=== PATIENT | female | born 1945 | race Hispanic/Latino ===

== ENCOUNTER → 2017-01-25 | Outpatient (CLI) | payer OTHER ==
--- NOTE | 2017-01-25 21:06 | REP ---
RIGHT SHOULDER, THREE VIEWS: There is no evidence of an acute fracture, dislocation or intrinsic bone disease. IMPRESSION: No fracture or dislocation. Signed by Rajendra Mclean MD 01/26/2017 07:57 P
--- NOTE | 2017-01-25 21:07 | REP ---
RIGHT HUMERUS, TWO VIEWS: There is no evidence of an acute fracture, dislocation or intrinsic bone disease. IMPRESSION: No fracture or dislocation. Signed by Rajendra Mclean MD 01/26/2017 07:57 P
== END ==
LOC: M WUC 19:36
PROVIDERS: ATTEND Physician Assistant
DX: S43.401A Unspecified sprain of right shoulder joint, initial encounter (principal); X58.XXXA Exposure to other specified factors, initial encounter; Y92.89 Other specified places as the place of occurrence of the external cause; Y93.89 Activity, other specified; Y99.8 Other external cause status

== ENCOUNTER → 2017-03-11 | Outpatient (CLI) | payer OTHER ==
[2017-03-11 14:08] LABS: ALBUMIN 3.7 GM/DL (3.2-5.2); ALBUMIN/GLOBULIN RATIO 1.19 (1.00-1.93); BILIRUBIN,TOTAL 0.7 MG/DL (0.2-1.0); CALCIUM LEVEL 8.5 MG/DL (8.8-10.2); CREATININE FOR GFR 1.17 MG/DL (0.55-1.02); FREE T4 1.55 NG/DL (0.76-1.46); GLOMERULAR FILTRATION RATE 48.3 (>39); MAGNESIUM LEVEL 1.9 MG/DL (1.8-2.4); POTASSIUM SERUM 4.2 MEQ/L (3.5-5.1); TOTAL PROTEIN 6.8 GM/DL (6.4-8.2)
== END ==
LOC: M WUC 09:05
PROVIDERS: ATTEND Nurse Practitioner Family
DX: E11.29 Type 2 diabetes mellitus with other diabetic kidney complication (principal); E03.9 Hypothyroidism, unspecified; E78.2 Mixed hyperlipidemia; I10 Essential (primary) hypertension

== ENCOUNTER → 2017-06-24 | Outpatient (CLI) | payer OTHER ==
--- NOTE | 2017-06-24 09:40 | REPMRS ---
Patient History The patient states she had a clinical breast exam in 05/2017. Patient is postmenopausal, has history of cancer in the left breast at age 59, had previous chemotherapy at age 59, and has history of ovarian cancer at age 47. No known family history of cancer. Benign excisional biopsy of the right breast, 2005. Malignant mastectomy of the left breast, 2004. Chemotherapy, 2004. Radiation therapy, 2004. Digital Woman Screen Mammo: June 24, 2017 - Exam #: [id number] Bilateral CC and MLO view(s) were taken. Technologist: Esther Garcia, Technologist Prior study comparison: January 13, 2016, digital woman screen mammo performed at [facility]. July 02, 2014, digital woman screen mammo performed at [facility] to [facility]. FINDINGS: There are scattered fibroglandular densities. There has been no change in the appearance of the mammogram from the prior studies. There is a mild amount of residual fibroglandular tissue which is fairly symmetric. There is no interval development of dominant mass, architectural distortion, or clustered microcalcification suggestive of malignancy. Scattered lymph nodes are seen in the axilla. There are benign arterial calcifications noted. There are scattered, small, benign calcifications of doubtful clinical significance. ASSESSMENT: BI-RADS/ACR category 2 mammogram. Benign finding(s). Recommendation Routine screening mammogram in 1 year (for women over age 40). This mammogram was interpreted with the aid of an FDA-approved computer-aided dectection system. A. Negative x-ray reports should not delay biopsy if a dominant or clinically suspicious mass is present. B. Four to eight percent of cancers are not identified by mammography. C. Adenosis and dense breast may obscure an underlying neoplasm. Electronically Signed By: Jm Grey MD 06/24/17 0945
== END ==
LOC: M WHC 08:07
PROVIDERS: ATTEND Nurse Practitioner Family
DX: R92.0 Mammographic microcalcification found on diagnostic imaging of breast (principal); Z85.3 Personal history of malignant neoplasm of breast; Z85.43 Personal history of malignant neoplasm of ovary

== ENCOUNTER → 2017-08-30 | Outpatient (CLI) | payer OTHER ==
[2017-08-30 13:26] LABS: ALBUMIN 3.9 GM/DL (3.2-5.2); ALBUMIN/GLOBULIN RATIO 1.22 (1.00-1.93); CALCIUM LEVEL 8.9 MG/DL (8.8-10.2); CREATININE FOR GFR 1.02 MG/DL (0.55-1.02); FREE T4 1.26 NG/DL (0.76-1.46); GLOMERULAR FILTRATION RATE 56.4 (>39); POTASSIUM SERUM 4.8 MEQ/L (3.5-5.1); TOTAL PROTEIN 7.1 GM/DL (6.4-8.2)
== END ==
LOC: M WUC 10:00
PROVIDERS: ATTEND Nurse Practitioner Family
DX: E11.29 Type 2 diabetes mellitus with other diabetic kidney complication (principal); E78.2 Mixed hyperlipidemia; E03.9 Hypothyroidism, unspecified

== ENCOUNTER → 2017-10-16 | Outpatient (CLI) | payer OTHER ==
[~2017-10-16] MED LIST: ASPI1TAB20 PO; DORZ2OPD; DORZ2OPD OU; DRIS50002 PO; ELIQ5TAB PO; GLIP2.5T6; GLIP2.5T6 PO; LATA5OPD; LATA5OPD OU; LEVO75TA4; LISI10TA4; LISI10TA4 PO; LORA10TA2; LORATAB PO; MAGN500T PO; MAGN50TA; METF500T13; METF500T13 PO; POTA10CA PO; UNIT1TAB PO; VITA1CAP40
--- NOTE | 2017-10-16 14:49 | REP ---
CAROTID ULTRASOUND: Real-time ultrasound evaluation and duplex Doppler interrogation of the extracranial carotid vasculature is performed. There is mild plaquing and narrowing in both carotid bulbs extending into the internal and external carotid arteries. Luminal narrowing is less than 50%. There is no evidence of hemodynamically significant stenosis of either internal carotid artery. Normal flow velocities are seen. The vertebral arteries demonstrate normal direction of flow. RIGHT LEFT Peak systolic velocity ICA 39.1 cm/s 57.8 cm/s End diastolic velocity ICA 6.3 cm/s 12.1 cm/s Peak systolic velocity CCA 64.5 cm/s 70 3 cm/s Peak systolic velocity ECA 90.5 cm/s 75.4 cm/s ICA/CCA ratio 0.61 0.82 IMPRESSION: Bilateral luminal narrowing of the internal carotid arteries less than 50%. No evidence of hemodynamically significant stenosis. Signed by Rajendra Mclean MD 10/16/2017 02:40 P
--- NOTE | 2017-10-16 16:14 | REP ---
MRI brain without contrast: History: Memory loss. Comparison CT study is from October 16, 2012. MRI findings: No bony calvarial lesion is seen. Craniocervical junction and upper cervical cord are normal in appearance. No intraorbital abnormality is seen. Visualized paranasal sinuses are clear. There are scattered foci of acute and subacute ischemia noted bilaterally in the supratentorial brain. There is a small focus of periventricular subcortical restricted diffusion in the right occipital lobe. There are foci of restricted diffusion in the right posterior frontal lobe. There is a focal periventricular white matter area of restricted diffusion in the left parietal lobe. There is evidence of subacute ischemic change in the head of the caudate nucleus on the left. The head of the caudate nucleus lesion shows T1 hyperintensity consistent with petechial hemorrhage component. There is some T1 hypointensity in the right posterior frontal lobe area. No mass, extra-axial fluid collection or midline shift. Impression: Multifocal acute and subacute ischemic areas noted bilaterally in the supratentorial brain in multiple different cerebral vascular distributions. Question embolic issue. There is a petechial hemorrhagic component to the lesion in the head of the caudate nucleus on the left. Findings were telephoned to the referring provider at the time of this dictation. Signed by Serafin Sam MD 10/16/2017 04:31 P
== END ==
LOC: M RAD 13:53
PROVIDERS: ATTEND Nurse Practitioner Family
DX: R09.89 Other specified symptoms and signs involving the circulatory and respiratory systems (principal); R41.841 Cognitive communication deficit

== ENCOUNTER 2017-10-17 10:08 | Inpatient (IN) | payer OTHER ==
[~2017-10-17] VITALS: Ht 152.4 cm; Wt 63.4 kg
[2017-10-17] MEDS ORDERED: LORA10TA2 (10:19)
[2017-10-17] MEDS ORDERED: LEVO75TA4 (10:19)
[2017-10-17] MEDS ORDERED: GLIP2.5T6 (10:19)
[2017-10-17] MEDS ORDERED: VITA1CAP40 (10:19)
[2017-10-17] MEDS ORDERED: METF500T13 (10:19)
[2017-10-17] MEDS ORDERED: DORZ2OPD (10:19)
[2017-10-17] MEDS ORDERED: MAGN50TA (10:19)
[2017-10-17] MEDS ORDERED: LISI10TA4 (10:19)
[2017-10-17] MEDS ORDERED: LATA5OPD (10:19)
[2017-10-17] MEDS: NS 1,000 ML IV SCH ×2 (10:33→21:37)
--- NOTE | 2017-10-17 10:54 | REP ---
Clinical: Cerebrovascular accident . Comparison: None . Findings: The mediastinum and cardiac silhouette are stable and within normal limits for portable technique. The lung mcmillan are clear without acute consolidation, effusion, or pneumothorax. Skeletal structures are intact. Impression: No acute cardiopulmonary process appreciated. Signed by Armando Todd MD 10/17/2017 10:45 A
[2017-10-17 11:17] LABS: BASO % 0.6 % (0.0-1.0); EOS # 0.3 10^3/uL (0.0-0.50); IMMATURE GRANULOCYTE % 0.4 % (0-0); LYMPH # 1.9 10^3/uL (1.5-4.5); LYMPH % 26.7 % (24.0-44.0); MEAN CORPUSCULAR HGB CONC 34.4 g/dl (32.0-36.5); MEAN CORPUSCULAR VOLUME 84.2 fl (80.0-96.0); MONO # 0.5 10^3/uL (0.0-0.8); MONO % 6.5 % (0.0-5.0); NEUTROPHILS # 4.5 10^3/uL (1.8-7.7); NEUTROPHILS % 61.8 % (36.0-66.0); PLATELET COUNT, AUTOMATED 254 10^3/uL (150-450); RED CELL DISTRIBUTION WIDTH 13.7 % (11.5-14.5); WHITE BLOOD COUNT 7.2 10^3/uL (4.0-10.0)
--- NOTE | 2017-10-17 11:19 | REP ---
Clinical: Acute/subacute presumed embolic cerebral infarcts. Comparison: MRI dated 10/16/2017, CT dated 01/08/2012. Findings: Age-related atrophy and microvascular ischemic changes are appreciated. Scattered subtle areas of low density as well as small chronic lacunar infarcts are identified and consistent with findings on recent MRI which include scattered acute/subacute small areas of infarction. There is no evidence for acute intracranial hemorrhage. A 5 mm hyperdense focus in the right cerebellum without surrounding edema appears progressive when compared to CT dated 2011 and likely chronic (less likely representing acute hemorrhage). The ventricles and sulci are symmetric. Mclean-white differentiation is maintained. There is no evidence for acute intracranial hemorrhage, mass/mass effect, pathology or infarction. No extra-axial fluid collection. Calvarium is intact. Paranasal sinuses and mastoid air cells are clear. Impression: 1. Age related atrophy and microvascular ischemic changes along with scattered low density areas consistent with the recent MRI demonstrating small scattered focal acute/subacute micro infarctions. 2. No acute intracranial hemorrhage or mass effect. 3. 5-mm hyperdense focus in the right cerebellum without surrounding edema likely represents progressive chronic change as compared with 2011 and less likely represents acute focal hemorrhage. Signed by Armando Todd MD 10/17/2017 11:10 A
[2017-10-17 11:27] LABS: INR 0.94
[2017-10-17 11:42] LABS: ANION GAP 10 MEQ/L (8-16); BLOOD UREA NITROGEN 12 MG/DL (7-18); CALCIUM LEVEL 9.4 MG/DL (8.8-10.2); CARBON DIOXIDE LEVEL 26 MEQ/L (21-32); CHLORIDE LEVEL 105 MEQ/L (98-107); CREATININE FOR GFR 1.05 MG/DL (0.55-1.02); GLOMERULAR FILTRATION RATE 54.5 (>39); GLUCOSE, FASTING 194 MG/DL (83-110); POTASSIUM SERUM 3.8 MEQ/L (3.5-5.1); SODIUM LEVEL 141 MEQ/L (136-145)
[2017-10-17] MEDS ORDERED: NS 1,000 ML IV SCH (11:53)
[2017-10-17] MEDS ORDERED: LISINOPRIL 20 MG TAB PO ONE (12:00)
[2017-10-17] MEDS ORDERED: BISACODYL 10 MG SUPP PR PRN (12:00)
[2017-10-17] MEDS: HumaLOG INSULIN (NovoLOG) PER UNIT SC SCH ×3 (12:00→21:00)
[2017-10-17] MEDS ORDERED: ONDANSETRON 4 MG TAB (S0181) PO PRN (12:00)
[2017-10-17] MEDS ORDERED: MAGN500T PO (12:02)
[2017-10-17] MEDS ORDERED: METF500T13 PO (12:02)
[2017-10-17] MEDS ORDERED: GLIP2.5T6 PO (12:02)
[2017-10-17] MEDS ORDERED: LATA5OPD OU (12:02)
[2017-10-17] MEDS ORDERED: LORATAB PO (12:02)
[2017-10-17] MEDS ORDERED: DORZ2OPD OU (12:02)
[2017-10-17] MEDS ORDERED: LISI10TA4 PO (12:02)
[2017-10-17] MEDS ORDERED: UNIT1TAB PO (12:02)
[2017-10-17] MEDS ORDERED: DRIS50002 PO (12:03)
[2017-10-17] MEDS ORDERED: DEXTROSE 50% 50 ML SYRINGE IV PRN (12:15)
[2017-10-17] MEDS ORDERED: GLUCOSE 4 GM CHEW TABLET PO PRN (12:15)
[2017-10-17] MEDS ORDERED: GLUCAGON FOR INJ 1 MG VIAL (J1610) SC PRN (12:15)
[2017-10-17 12:24] LABS: FREE T4 1.53 NG/DL (0.76-1.46)
[2017-10-17] MEDS ORDERED: ASPIRIN 325 MG TAB PO ONE (13:00)
[2017-10-17 16:00] VITALS: BP 147/68
[2017-10-17] MEDS: SENOKOT S TAB PO SCH (20:52)
[2017-10-17] MEDS: oxyBUTYnin 5 MG TAB PO SCH (20:53)
[2017-10-17 20:55] VITALS: BP 146/80
[2017-10-17 23:58] VITALS: BP 150/86
[2017-10-18] VITALS: BP 150/86
[2017-10-18] MEDS: ACETAMINOPHEN TAB 650MG DOSE (2X325MG) PO PRN ×2 (00:29→18:28)
[2017-10-18 04:00] VITALS: BP 152/67
[2017-10-18 04:42] LABS: BASO % 0.5 % (0.0-1.0); EOS # 0.4 10^3/uL (0.0-0.50); EOS % 4.2 % (0.0-3.0); IMMATURE GRANULOCYTE % 0.2 % (0-0); LYMPH # 2.9 10^3/uL (1.5-4.5); LYMPH % 34.4 % (24.0-44.0); MEAN CORPUSCULAR HEMOGLOBIN 28.7 pg (27.0-33.0); MEAN CORPUSCULAR HGB CONC 33.6 g/dl (32.0-36.5); MEAN CORPUSCULAR VOLUME 85.3 fl (80.0-96.0); MONO # 0.7 10^3/uL (0.0-0.8); NEUTROPHILS # 4.4 10^3/uL (1.8-7.7); NEUTROPHILS % 52.7 % (36.0-66.0); PLATELET COUNT, AUTOMATED 229 10^3/uL (150-450); RED CELL DISTRIBUTION WIDTH 13.7 % (11.5-14.5); WHITE BLOOD COUNT 8.3 10^3/uL (4.0-10.0)
[2017-10-18 04:55] LABS: ALBUMIN 3.1 GM/DL (3.2-5.2); ALBUMIN/GLOBULIN RATIO 1.15 (1.00-1.93); ALKALINE PHOSPHATASE 71 U/L (45-117); ALT/SGPT 22 U/L (12-78); ANION GAP 7 MEQ/L (8-16); AST/SGOT 16 U/L (7-37); BILIRUBIN,TOTAL 0.8 MG/DL (0.2-1.0); BLOOD UREA NITROGEN 10 MG/DL (7-18); CALCIUM LEVEL 8.3 MG/DL (8.8-10.2); CARBON DIOXIDE LEVEL 27 MEQ/L (21-32); CHLORIDE LEVEL 112 MEQ/L (98-107); CREATININE FOR GFR 0.95 MG/DL (0.55-1.02); GLOMERULAR FILTRATION RATE > 60.0 (>39); GLUCOSE, FASTING 126 MG/DL (83-110); SODIUM LEVEL 146 MEQ/L (136-145); TOTAL PROTEIN 5.8 GM/DL (6.4-8.2)
--- NOTE | 2017-10-18 06:07 | ECGEPIP ---
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
[2017-10-18] MEDS: LEVOTHYROXINE 75MCG TABLET (0.075MG) PO SCH (06:14)
[2017-10-18 08:00] VITALS: BP 138/65
[2017-10-18] MEDS: SENOKOT S TAB PO SCH ×3 (08:07→21:00)
[2017-10-18] MEDS: DORZOLAMIDE 2% OPHTH SOLN 10 ML BTL OU SCH (08:07)
[2017-10-18] MEDS: NS 1,000 ML IV SCH ×2 (08:07→18:28)
[2017-10-18] MEDS: oxyBUTYnin 5 MG TAB PO SCH ×2 (08:07→21:42)
[2017-10-18] MEDS: HumaLOG INSULIN (NovoLOG) PER UNIT SC SCH ×4 (08:08→21:00)
--- NOTE | 2017-10-18 11:03 | IPNPDOC ---
Subjective Date Seen The patient was seen on 10/18/17. Subjective Chief Complaint/HPI The patient is a 72-year-old female admitted with a reason for visit of Cerebral Infarction. Events since last encounter denies c/o. PT advising not safe for DC yet. recommended OT eval. plan on OT eval today. Echo planned for today. Constitutional: Denies: Chills, Fever, Night Sweats ENT: Denies: Head Aches, Ear Pain, Dysphagia Skin: Denies: Rash, Lesions, Breakdown Pulmonary: Denies: Dyspnea, Cough Cardiovascular: Denies: Chest Pain, Palpitations, Orthopnea, Paroxysmal Noc. Dyspnea, Lt Headedness Objective Physical Examination General Exam: Positive: Alert, No Acute Distress Eye Exam: Positive: PERRLA, Conjunctiva & lids normal, EOMI, Negative: Sclera icteric Neck Exam: Positive: Supple, Negative: JVD, thyromegaly Chest Exam: Positive: Clear to auscultation, Normal air movement Heart Exam: Positive: Rate Normal, Regular Rhythm, Normal S1, Normal S2, Negative: Murmurs, Rubs Telemetry: Positive: No significant arrhythmia Abdomen Exam: Positive: Normal bowel sounds, Soft, Negative: Tenderness, Hepatospenomegaly Extremity Exam: Positive: Normal pulses, Negative: Clubbing, Cyanosis, Edema Psych Exam: Positive: Mental status NL, Mood NL, Oriented x 3 Assessment /Plan Problems (1) Cerebral infarction Status: Acute Problem Text: coagulopathy workup pending. Tele: uneventful. Echo for today. PT /OT. Family willing to give 24 hour care if needed. (2) Diabetes mellitus Status: Chronic Response to Treatment: Stable Problem Specific Plan: Monitor Clinically Problem Text: stable blood sugars. RISS per protocol (3) HTN (hypertension) Status: Chronic Response to Treatment: Stable Problem Specific Plan: Monitor Clinically Problem Text: well controlled BP. Plan/VTE VTE Prophylaxis Ordered?: Yes (aspirin, teds/SCDs) Plan Patient was seen and examined by myself and his care was reviewed with the physician assistant finance manager on service VS, I&O, 24H, Cluadiobone Vital Signs/I&O Vital Signs Date Time Temp Pulse Resp B/P (MAP) Pulse Ox O2 Delivery O2 Flow Rate FiO2 10/18/17 08:00 97.6 75 20 138/65 (89) 98 Room Air I&O- Last 24 Hours up to 6 AM 10/19/17 06:00 Intake Total 240 ml Output Total 200 ml Balance 40 ml Laboratory Data 24H LABS Laboratory Tests 2 10/17/17 11:09: Immature Granulocyte % (Auto) 0.4H, White Blood Count 7.2, Red Blood Count 4.62 , Hemoglobin 13.4, Hematocrit 38.9, Mean Corpuscular Volume 84.2, Mean Corpuscular Hemoglobin 29.0, Mean Corpuscular Hemoglobin Concent 34.4, Red Cell Distribution Width 13.7, Platelet Count 254, Neutrophils (%) (Auto) 61.8, Lymphocytes (%) (Auto) 26.7, Monocytes (%) (Auto) 6.5H, Eosinophils (%) (Auto) 4.0H, Basophils (%) (Auto) 0.6, Neutrophils # (Auto) 4.5, Lymphocytes # (Auto) 1.9, Monocytes # (Auto) 0.5, Eosinophils # (Auto) 0.3, Basophils # (Auto) 0.0, Immature Granulocyte # (Auto) 0.0, Nucleated Red Blood Cells % (auto) 0.0, Prothrombin Time 12.7, Prothromb Time International Ratio 0.94, Activated Partial Thromboplast Time 27.5, Anion Gap 10, Glomerular Filtration Rate 54.5, Blood Urea Nitrogen 12, Creatinine 1.05H, Sodium Level 141, Potassium Level 3.8 , Chloride Level 105, Carbon Dioxide Level 26, Calcium Level 9.4, Total Creatine Kinase 54, Creatine Kinase MB 1.6, Creatine Kinase MB Relative Index 2.96, Troponin I < 0.02, Thyroid Stimulating Hormone (TSH) 2.060, Free Thyroxine 1.53H 10/17/17 11:16: Bedside Glucose (Misc Panel) 196H 10/17/17 20:06: Total Creatine Kinase 50, Creatine Kinase MB 1.2, Creatine Kinase MB Relative Index 2.40, Troponin I < 0.02 10/17/17 21:04: Bedside Glucose (Misc Panel) 164H 10/18/17 03:59: Immature Granulocyte % (Auto) 0.2H, White Blood Count 8.3, Red Blood Count 4.08 , Hemoglobin 11.7L, Hematocrit 34.8L, Mean Corpuscular Volume 85.3, Mean Corpuscular Hemoglobin 28.7, Mean Corpuscular Hemoglobin Concent 33.6, Red Cell Distribution Width 13.7, Platelet Count 229, Neutrophils (%) (Auto) 52.7, Lymphocytes (%) (Auto) 34.4, Monocytes (%) (Auto) 8.0H, Eosinophils (%) (Auto) 4.2H, Basophils (%) (Auto) 0.5, Neutrophils # (Auto) 4.4, Lymphocytes # (Auto) 2.9, Monocytes # (Auto) 0.7, Eosinophils # (Auto) 0.4, Basophils # (Auto) 0.0, Immature Granulocyte # (Auto) 0.0, Nucleated Red Blood Cells % (auto) 0.0, Anion Gap 7L, Glomerular Filtration Rate > 60.0, Blood Urea Nitrogen 10, Creatinine 0.95, Sodium Level 146H, Potassium Level 4.0, Chloride Level 112H, Carbon Dioxide Level 27, Calcium Level 8.3L, Aspartate Amino Transf (AST/SGOT) 16, Alanine Aminotransferase (ALT/SGPT) 22, Alkaline Phosphatase 71, Total Bilirubin 0.8, Total Protein 5.8L, Albumin 3.1L, Total Creatine Kinase 44, Creatine Kinase MB 1.1, Creatine Kinase MB Relative Index 2.50, Troponin I < 0.02, Albumin/Globulin Ratio 1.15 CBC/BMP Laboratory Tests 10/17/17 11:09 Red Blood Count 4.62, Mean Corpuscular Volume 84.2, Mean Corpuscular Hemoglobin 29.0, Mean Corpuscular Hemoglobin Concent 34.4, Red Cell Distribution Width 13.7 , Neutrophils (%) (Auto) 61.8, Lymphocytes (%) (Auto) 26.7, Monocytes (%) (Auto ) 6.5 H, Eosinophils (%) (Auto) 4.0 H, Basophils (%) (Auto) 0.6, Neutrophils # ( Auto) 4.5, Lymphocytes # (Auto) 1.9, Monocytes # (Auto) 0.5, Eosinophils # (Auto ) 0.3, Basophils # (Auto) 0.0, Calcium Level 9.4, Total Creatine Kinase 54 10/18/17 03:59 Red Blood Count 4.08, Mean Corpuscular Volume 85.3, Mean Corpuscular Hemoglobin 28.7, Mean Corpuscular Hemoglobin Concent 33.6, Red Cell Distribution Width 13.7 , Neutrophils (%) (Auto) 52.7, Lymphocytes (%) (Auto) 34.4, Monocytes (%) (Auto ) 8.0 H, Eosinophils (%) (Auto) 4.2 H, Basophils (%) (Auto) 0.5, Neutrophils # ( Auto) 4.4, Lymphocytes # (Auto) 2.9, Monocytes # (Auto) 0.7, Eosinophils # (Auto ) 0.4, Basophils # (Auto) 0.0, Calcium Level 8.3 L, Aspartate Amino Transf (AST/ SGOT) 16, Alanine Aminotransferase (ALT/SGPT) 22, Alkaline Phosphatase 71, Total Bilirubin 0.8, Total Protein 5.8 L, Albumin 3.1 L Rebecca Stock Oct 18, 2017 11:03 Livan Cheney M.D. Oct 18, 2017 16:40
[2017-10-18 12:03] VITALS: BP 175/74
--- NOTE | 2017-10-18 15:32 | ECGEPIP ---
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
--- NOTE | 2017-10-18 15:35 | ECGEPIP ---
Stationary ECG Study [facility] Test Date: 2017-10-18 Pat Name: EBENEZER SANCHEZ Department: Room: [place] [address] Gender: F Packer And Carry Out: MARIALUISA : 1945 Requested By: FABIANA Castro Order Number: [id number] Reading MD: Minesh Mancuso Measurements Intervals [place] Rate: 70 P: 40 [place]: 154 QRS: -7 QRSD: 88 T: 56 QT: 397 QTc: 431 Interpretive Statements Normal sinus rhythm Left atrial enlargement Leftward axis Consider prior IWMI No significant change when compared to prior tracing of earlier this date Electronically Signed On 10-18-2017 15:35:20 EST by Minesh Mancuso
[2017-10-18 16:10] VITALS: BP 152/69
[2017-10-18 20:00] VITALS: BP 153/65
--- NOTE | 2017-10-18 20:25 | HPE ---
DATE OF ADMISSION: 10/17/2017 PRIMARY CARE PHYSICIAN: Micheline Solano, nurse practitioner This is a 72-year-old female who presented to the emergency department at the urging of her primary care physician (PCP). Patient has been having some progressive confusion and incoordination according to the daughter with short-term memory lapse. Patient has difficulty reading a book. She moves slowly. The daughter states that she buys food and then does not cook it, lets it rot in the home, which is uncharacteristic of her mother. Workup was completed through the PCP, and an MRI of the brain on October 16 was completed and was concerning for multifocal acute and subacute ischemic areas noted bilaterally. There were some concerns that perhaps this was septic emboli, and patient was urged to attend to the emergency room yesterday; however, daughter had to convince mother to come into the emergency room and presented this morning. Workup in the emergency department (ED) proved age-related atrophy and microvascular ischemic changes along with scattered low-density areas consistent with recent MRI, demonstrating small scattered focal acute, subacute microinfarctions. Also noted patient has a 5 mm hyperdense focus in the right cerebellum without surrounding edema, likely representing progressive chronic change compared to 2012 study. PAST MEDICAL HISTORY: Significant for: 1. Diabetes, type 2. 2. Essential hypertension. 3. Acquired hypothyroidism. 4. Hyperlipidemia. 5. Previously elevated liver function tests (LFTs). 6. Urinary urge incontinence. 7. Chronic constipation. 8. Depression. 9. Insomnia. PAST SURGICAL HISTORY: Significant for: 1. Left-sided mastectomy, completed in [place] in 2004. 2. Hysterectomy secondary to uterine cancer in [facility] in 1989. 3. Colonoscopy with hemorrhoids, and diverticulosis, completed in 2005 and then another colonoscopy in 2013. FAMILY HISTORY: Father secondary to liver cancer at age 60. Mother at age 92 due to stroke. Her siblings are living and well. Her children are living and well. SOCIAL HISTORY: She lives alone. Her daughter checks in on her every day, assists with her shopping or any other needs. She is a nonsmoker. Never smoked. Denies any alcohol use. Denies any recreational drug use. Caffeine intake includes two to three cups of coffee per day. Gnosticism: Patient is a [employer], and patient is Ukrainian speaking for her primary language. ALLERGIES: SIMVASTATIN, which causes diarrhea and nausea, ATORVASTATIN, which causes elevated liver function tests (LFTs), and oxybutynin, which causes diarrhea. REVIEW OF SYSTEMS: CONSTITUTIONAL: Denies fevers or cold chills. Does admit to intermittent confusion and incoordination. HEENT: Denies sore throat. Denies headache. Denies nasal congestion or ear pain. Denies neck fullness or difficulty swallowing. CARDIOVASCULAR: Denies chest pain, heart palpitations, lower extremity edema, or dyspnea with exertion. PULMONARY: Denies cough. Denies sputum production. Denies shortness of breath. Denies dyspnea on exertion. NEUROLOGIC: Does admit to intermittent confusion witnessed by daughter, incoordination of movements and slowing as described in history of present illness (HPI). MUSCULOSKELETAL: Same as for neurologic review of systems and HPI. PSYCHIATRIC: Denies any recent worsening depression, suicidal ideation, thoughts of harming herself or others. PHYSICAL EXAMINATION: In the emergency room, Blood pressure is elevated in 170s/90s with a heart rate in the 80-97 range, oxygen saturation 98% in room air. HEENT: Neck is supple without lymphadenopathy or jugular venous distention (JVD). CARDIOVASCULAR: Heart rate and rhythm are regular with a grade 3 to 4 out of 6 systolic ejection murmur located to the left sternal border. LUNGS: Clear to auscultation bilaterally. ABDOMEN: Soft and nontender with positive bowel sounds times all four quadrants. Bilateral lower extremities are without any edema. Positive pedal pulses bilaterally. ASSESSMENT AND PLAN: 1. Acute, subacute cerebral infarcts. Patient will be placed on full-dose aspirin 325 mg by mouth daily. We will monitor her in progressive care unit (PCU ) under telemetry to rule out any cardiac arrhythmia contributing to the infarct. 2. Diabetes. Patient takes metformin and glipizide at home. We will hold those medications and treat her with a regular insulin sliding scale. 3. Hypertension. Patient is uncontrolled in the facility. She is normally on lisinopril 10 mg one by mouth daily. We will increase that to 20 mg daily and monitor her pressures. 4. Hypothyroidism. We will continue her levothyroxine at 75 mcg one by mouth daily. Patient will have thyroid-stimulating hormone (TSH) and a free T4 evaluated. 5. Glaucoma. We will continue her dorzolamide drops on a daily basis. 6. Regarding anticoagulation, patient will have thromboembolic deterrents (TEDs ) and sequential compression devices and aspirin 325 mg one by mouth daily. Physical therapy evaluation and treatment for patient's incoordination and evaluation for safety at home. Patient's language will be a barrier, and she may need hat binder services if daughter is unavailable to translate for her. Patient will be admitted under observation. Attending surgeon, Dr. Leyla Sapp, is agreeable to subsequent admission. edited: 10/25/2017 0735 tkf [email or web address]
[2017-10-19] VITALS (7 sets, daily range): BP systolic 148–190; BP diastolic 66–90
[2017-10-19] MEDS ORDERED: MAGNESIUM OXIDE 400 MG TAB (MAG-OX) PO ONE (00:15)
[2017-10-19] MEDS: ACETAMINOPHEN TAB 650MG DOSE (2X325MG) PO PRN (01:00)
[2017-10-19] MEDS: NS 1,000 ML IV SCH (02:33)
[2017-10-19 05:24] LABS: BASO % 0.4 % (0.0-1.0); EOS # 0.4 10^3/uL (0.0-0.50); EOS % 5.4 % (0.0-3.0); IMMATURE GRANULOCYTE % 0.1 % (0-0); LYMPH # 2.7 10^3/uL (1.5-4.5); LYMPH % 35.2 % (24.0-44.0); MEAN CORPUSCULAR HEMOGLOBIN 28.4 pg (27.0-33.0); MEAN CORPUSCULAR HGB CONC 33.9 g/dl (32.0-36.5); MEAN CORPUSCULAR VOLUME 83.9 fl (80.0-96.0); MONO # 0.6 10^3/uL (0.0-0.8); MONO % 7.6 % (0.0-5.0); NEUTROPHILS # 3.9 10^3/uL (1.8-7.7); NEUTROPHILS % 51.3 % (36.0-66.0); PLATELET COUNT, AUTOMATED 225 10^3/uL (150-450); RED CELL DISTRIBUTION WIDTH 13.8 % (11.5-14.5); WHITE BLOOD COUNT 7.6 10^3/uL (4.0-10.0)
[2017-10-19 05:44] LABS: ALKALINE PHOSPHATASE 72 U/L (45-117); ALT/SGPT 24 U/L (12-78); ANION GAP 6 MEQ/L (8-16); AST/SGOT 19 U/L (7-37); BILIRUBIN,TOTAL 0.6 MG/DL (0.2-1.0); BLOOD UREA NITROGEN 5 MG/DL (7-18); CALCIUM LEVEL 8.1 MG/DL (8.8-10.2); CARBON DIOXIDE LEVEL 25 MEQ/L (21-32); CHLORIDE LEVEL 115 MEQ/L (98-107); CREATININE FOR GFR 0.71 MG/DL (0.55-1.02); GLOMERULAR FILTRATION RATE > 60.0 (>39); GLUCOSE, FASTING 113 MG/DL (83-110); POTASSIUM SERUM 3.6 MEQ/L (3.5-5.1); SODIUM LEVEL 146 MEQ/L (136-145)
[2017-10-19] MEDS: LEVOTHYROXINE 75MCG TABLET (0.075MG) PO SCH (05:44)
--- NOTE | 2017-10-19 06:40 | ECHO ---
DATE OF STUDY: 10/18/2017 REFERRING PHYSICIAN: Rebecca Stock NP INDICATION: Heart murmur. HEIGHT: 60 inches. WEIGHT: 147 pounds. 2D MEASUREMENTS: Aortic root 3.0 cm Proximal ascending aorta 2.7 cm Left atrium 3.4 cm Ventricular septum 1.04 cm Posterior wall 0.94 cm Left ventricle diastole 4.1 cm Right ventricle 3.3 cm DOPPLER MEASUREMENTS: Mild aortic regurgitation. Aortic regurgitation pressure halftime 446 ms Aortic valve velocity 137 cm/s LVOT velocity 117 cm/s LVOT VTI 29.0 cm Very mild mitral regurgitation. No mitral stenosis. Mitral E velocity (continuous wave) 154 cm/s Mitral A velocity (continuous wave) 160 cm/s Mean mitral valve gradient 4 mmHg Mitral pressure halftime 64 ms Mitral E velocity (pulse wave) 195 cm/s Mitral A velocity (pulse wave) 210 cm/s Mitral deceleration 211 ms Mild tricuspid regurgitation. Estimated right ventricle systolic pressure 31 mmHg assuming a right atrial pressure of 5 mmHg. Pulmonary artery systolic pressure 21 mmHg by pulmonary acceleration time method. MITRAL ANNULAR TISSUE DOPPLER: E prime lateral 5.4 cm/s E prime septal 5.0 cm/s DESCRIPTION: Rhythm was sinus. Image quality was fair. No pericardial effusion. This was a 2D, M-mode, color flow Doppler and pulse wave Doppler examination and included mitral annular tissue Doppler. CONCLUSIONS: 1. Normal left ventricle internal dimensions and wall thickness. Normal regional LV wall motion and wall thickening. Normal LV systolic function. Left ventricular function 65% by visual estimate. Grade 1 LV diastolic dysfunction (impaired relaxation filling pattern). 2. Severe tab annular calcification. No mitral stenosis. Very mild mitral regurgitation. 3. Mild aortic valve sclerosis of a three-cusp aortic valve. Mild aortic regurgitation. No aortic stenosis. 4. Otherwise, normal appearing echocardiogram Doppler.
[2017-10-19] MEDS: HumaLOG INSULIN (NovoLOG) PER UNIT SC SCH ×4 (07:34→21:50)
[2017-10-19] MEDS: SENOKOT S TAB PO SCH ×2 (08:18→21:51)
[2017-10-19] MEDS: oxyBUTYnin 5 MG TAB PO SCH ×2 (08:51→21:50)
[2017-10-19] MEDS: DORZOLAMIDE 2% OPHTH SOLN 10 ML BTL OU SCH (08:51)
[2017-10-19] MEDS: MAGNESIUM OXIDE 400 MG TAB (MAG-OX) PO SCH ×2 (08:51→21:50)
[2017-10-19] MEDS ORDERED: PROHANCE 279.3MG/ML 15ML VIAL (A9576) As Ordered ONE (13:38)
[2017-10-19 14:03] LABS: ALBUMIN 3.5 GM/DL (3.2-5.2); ANION GAP 6 MEQ/L (8-16); BLOOD UREA NITROGEN 4 MG/DL (7-18); CALCIUM LEVEL 8.5 MG/DL (8.8-10.2); CARBON DIOXIDE LEVEL 27 MEQ/L (21-32); CHLORIDE LEVEL 110 MEQ/L (98-107); CREATININE FOR GFR 0.91 MG/DL (0.55-1.02); GLOMERULAR FILTRATION RATE > 60.0 (>39); GLUCOSE, FASTING 174 MG/DL (83-110); MAGNESIUM LEVEL 1.7 MG/DL (1.8-2.4); PHOSPHORUS LEVEL 2.4 MG/DL (2.5-4.9); SODIUM LEVEL 143 MEQ/L (136-145)
--- NOTE | 2017-10-19 14:37 | IPNPDOC ---
Subjective Date Seen The patient was seen on 10/19/17. Subjective Chief Complaint/HPI The patient is a 72-year-old female admitted with a reason for visit of Cerebral Infarction. Events since last encounter Patient states she is feeling very good today. She does not have any acute concerns today. Constitutional: Denies: Chills, Fever Pulmonary: Denies: Dyspnea Cardiovascular: Denies: Chest Pain Objective Physical Examination General Exam: Positive: Alert, No Acute Distress Chest Exam: Positive: Clear to auscultation, Normal air movement, Negative: Rales, Rhonchi, Wheezing Heart Exam: Positive: Rate Normal, Regular Rhythm, Normal S1, Normal S2, Negative: Gallops, Murmurs, Rubs Telemetry: Positive: Sinus Abdomen Exam: Positive: Normal bowel sounds, Soft, Negative: Tenderness, Hepatospenomegaly, Mass Extremity Exam: Negative: Edema Assessment /Plan Problems (1) Cerebral infarction Status: Acute Problem Text: 10/19: Patient with essentially normal echocardiogram, LVEF of 65 %, grade 1 diastolic dysfunction. Due to normal echo she will require further evaluation with MRA of brain, MRA of chest 10/18: Coagulopathy workup pending. Tele: uneventful. Echo for today. PT/OT. Family willing to give 24 hour care if needed. (2) Diabetes mellitus Status: Chronic Response to Treatment: Stable Problem Specific Plan: Monitor Clinically Problem Text: stable blood sugars. RISS per protocol (3) HTN (hypertension) Status: Chronic Response to Treatment: Stable Problem Specific Plan: Monitor Clinically Problem Text: well controlled BP. Plan/VTE VTE Prophylaxis Ordered?: Yes (aspirin, teds/SCDs) VS, I&O, 24H, Fishbone Vital Signs/I&O Vital Signs Date Time Temp Pulse Resp B/P (MAP) Pulse Ox O2 Delivery O2 Flow Rate FiO2 10/19/17 11:41 97.0 80 18 162/90 (114) 98 Room Air I&O- Last 24 Hours up to 6 AM 10/20/17 06:00 Intake Total 300 ml Output Total 1800 ml Balance -1500 ml Laboratory Data 24H LABS Laboratory Tests 2 10/18/17 17:00: Bedside Glucose (Misc Panel) 75L 10/18/17 21:17: Bedside Glucose (Misc Panel) 256H 10/18/17 23:01: Magnesium Level 1.4L 10/19/17 04:41: Immature Granulocyte % (Auto) 0.1H, White Blood Count 7.6, Red Blood Count 4.22 , Hemoglobin 12.0, Hematocrit 35.4L, Mean Corpuscular Volume 83.9, Mean Corpuscular Hemoglobin 28.4, Mean Corpuscular Hemoglobin Concent 33.9, Red Cell Distribution Width 13.8, Platelet Count 225, Neutrophils (%) (Auto) 51.3, Lymphocytes (%) (Auto) 35.2, Monocytes (%) (Auto) 7.6H, Eosinophils (%) (Auto) 5.4H, Basophils (%) (Auto) 0.4, Neutrophils # (Auto) 3.9, Lymphocytes # (Auto) 2.7, Monocytes # (Auto) 0.6, Eosinophils # (Auto) 0.4, Basophils # (Auto) 0.0, Immature Granulocyte # (Auto) 0.0, Nucleated Red Blood Cells % (auto) 0.0, Anion Gap 6L, Glomerular Filtration Rate > 60.0, Blood Urea Nitrogen 5L, Creatinine 0.71, Sodium Level 146H, Potassium Level 3.6, Chloride Level 115H, Carbon Dioxide Level 25, Calcium Level 8.1L, Aspartate Amino Transf (AST/SGOT) 19, Alanine Aminotransferase (ALT/SGPT) 24, Alkaline Phosphatase 72, Total Bilirubin 0.6, Total Protein 6.0L, Albumin 3.0L, Albumin/Globulin Ratio 1.00 10/19/17 11:50: Bedside Glucose (Misc Panel) 236H 10/19/17 13:14: Blood Urea Nitrogen 4L, Creatinine 0.91, Sodium Level 143, Potassium Level 4.0, Chloride Level 110H, Carbon Dioxide Level 27, Anion Gap 6L, Glomerular Filtration Rate > 60.0, Calcium Level 8.5L, Phosphorus Level 2.4L, Magnesium Level 1.7L, Albumin 3.5 CBC/BMP Laboratory Tests 10/19/17 04:41 Red Blood Count 4.22, Mean Corpuscular Volume 83.9, Mean Corpuscular Hemoglobin 28.4, Mean Corpuscular Hemoglobin Concent 33.9, Red Cell Distribution Width 13.8 , Neutrophils (%) (Auto) 51.3, Lymphocytes (%) (Auto) 35.2, Monocytes (%) (Auto ) 7.6 H, Eosinophils (%) (Auto) 5.4 H, Basophils (%) (Auto) 0.4, Neutrophils # ( Auto) 3.9, Lymphocytes # (Auto) 2.7, Monocytes # (Auto) 0.6, Eosinophils # (Auto ) 0.4, Basophils # (Auto) 0.0, Calcium Level 8.1 L, Aspartate Amino Transf (AST/ SGOT) 19, Alanine Aminotransferase (ALT/SGPT) 24, Alkaline Phosphatase 72, Total Bilirubin 0.6, Total Protein 6.0 L, Albumin 3.0 L 10/19/17 13:14 Anion Gap 6 L JACKIE FOLEY DO Oct 19, 2017 14:36 Best Li M.D. Oct 20, 2017 15:54
--- NOTE | 2017-10-19 15:46 | REP ---
Clinical: Acute cerebrovascular accident Comparison: None Technique: Axial 3-D [id number] noncontrast source images with 3-D multiplanar re-formations. Findings: Vasculature to the bilateral hemispheres appears symmetric and normal without areas of attenuation to suggest occlusion or stenosis. No evidence for arteriovenous malformation or aneurysm. No obvious abnormality. Impression: Normal MRA of the brain. Possible small petechial hemorrhage in the left caudate nucleus similar to prior examination. Signed by Armando Todd MD 10/19/2017 03:38 P
[2017-10-20] VITALS (7 sets, daily range): BP systolic 108–180; BP diastolic 62–92
[2017-10-20 05:39] LABS: BASO % 0.5 % (0.0-1.0); EOS # 0.4 10^3/uL (0.0-0.50); EOS % 5.3 % (0.0-3.0); IMMATURE GRANULOCYTE % 0.2 % (0-0); LYMPH # 2.7 10^3/uL (1.5-4.5); LYMPH % 32.5 % (24.0-44.0); MEAN CORPUSCULAR HEMOGLOBIN 28.3 pg (27.0-33.0); MEAN CORPUSCULAR HGB CONC 33.9 g/dl (32.0-36.5); MEAN CORPUSCULAR VOLUME 83.6 fl (80.0-96.0); MONO # 0.7 10^3/uL (0.0-0.8); MONO % 8.4 % (0.0-5.0); NEUTROPHILS # 4.4 10^3/uL (1.8-7.7); NEUTROPHILS % 53.1 % (36.0-66.0); PLATELET COUNT, AUTOMATED 239 10^3/uL (150-450); RED CELL DISTRIBUTION WIDTH 13.8 % (11.5-14.5); WHITE BLOOD COUNT 8.3 10^3/uL (4.0-10.0)
[2017-10-20 05:56] LABS: ALBUMIN 3.4 GM/DL (3.2-5.2); ALBUMIN/GLOBULIN RATIO 0.97 (1.00-1.93); ALKALINE PHOSPHATASE 73 U/L (45-117); ALT/SGPT 25 U/L (12-78); ANION GAP 8 MEQ/L (8-16); AST/SGOT 17 U/L (7-37); BILIRUBIN,TOTAL 0.8 MG/DL (0.2-1.0); BLOOD UREA NITROGEN 6 MG/DL (7-18); CALCIUM LEVEL 8.8 MG/DL (8.8-10.2); CARBON DIOXIDE LEVEL 25 MEQ/L (21-32); CHLORIDE LEVEL 110 MEQ/L (98-107); GLOMERULAR FILTRATION RATE > 60.0 (>39); GLUCOSE, FASTING 138 MG/DL (83-110); MAGNESIUM LEVEL 1.9 MG/DL (1.8-2.4); POTASSIUM SERUM 3.5 MEQ/L (3.5-5.1); SODIUM LEVEL 143 MEQ/L (136-145); TOTAL PROTEIN 6.9 GM/DL (6.4-8.2)
[2017-10-20] MEDS: LEVOTHYROXINE 75MCG TABLET (0.075MG) PO SCH (06:55)
[2017-10-20] MEDS: SENOKOT S TAB PO SCH ×2 (09:20→21:18)
[2017-10-20] MEDS: DORZOLAMIDE 2% OPHTH SOLN 10 ML BTL OU SCH (09:20)
[2017-10-20] MEDS: HumaLOG INSULIN (NovoLOG) PER UNIT SC SCH ×4 (09:20→21:00)
[2017-10-20] MEDS: MAGNESIUM OXIDE 400 MG TAB (MAG-OX) PO SCH ×2 (09:20→21:18)
[2017-10-20] MEDS: oxyBUTYnin 5 MG TAB PO SCH ×2 (09:20→21:18)
[2017-10-20] MEDS: FLUTICASONE PROP 0.05% NASAL SPRAY 16 GM (FLONASE) SCH (12:34)
[2017-10-20] MEDS ORDERED: ASPIRIN 325 MG TAB PO ONE (16:15)
[2017-10-20] MEDS ORDERED: POTASSIUM CHLORIDE 10 MEQ SR TABLET PO ONE (16:15)
[2017-10-20] MEDS: LISINOPRIL 10 MG TAB PO SCH (16:17)
--- NOTE | 2017-10-20 16:21 | IPNPDOC ---
Subjective Date Seen The patient was seen on 10/20/17. Subjective Chief Complaint/HPI The patient is a 72-year-old female admitted with a reason for visit of Cerebral Infarction. General: Reports: ROS Unobtainable (patient only speaks [place]i and her daughter was unable to translate. Per nursing, the patient has had no complaints.) Cardiovascular: Denies: Palpitations Objective Physical Examination General Exam: Positive: Alert, No Acute Distress Chest Exam: Positive: Clear to auscultation, Normal air movement, Negative: Rales, Rhonchi, Wheezing Heart Exam: Positive: Rate Normal, Regular Rhythm, Normal S1, Normal S2, Negative: Gallops, Murmurs, Rubs Telemetry: Positive: Sinus Abdomen Exam: Positive: Normal bowel sounds, Soft, Negative: Tenderness, Hepatospenomegaly, Mass Extremity Exam: Negative: Edema Assessment /Plan Problems (1) Cerebral infarction Status: Acute Problem Text: 10/20: Normal echo, MRA brain, MRA chest, and no events on telemetry. Strongly favor occult atrial fibrillation as MRA brain, chest, and echo were negative for embolic source. Would recommend event monitor upon discharge, hopefully will be discharged Saturday or Saturday. 10/19: Patient with essentially normal echocardiogram, LVEF of 65%, grade 1 diastolic dysfunction. Due to normal echo she will require further evaluation with MRA of brain, MRA of chest 10/18: Coagulopathy workup pending. Tele: uneventful. Echo for today. PT/OT. Family willing to give 24 hour care if needed. (2) HTN (hypertension) Status: Chronic Response to Treatment: Stable Problem Specific Plan: Monitor Clinically Problem Text: 10/20 Patient's BP has been 160/92. Restarting home dose of lisinopril tomorrow as we are now outside of the 48 hour window of CVA protocol , and carvedilol may mask a potential A fib event on telemetry tonight. well controlled BP. (3) Diabetes mellitus Status: Chronic Response to Treatment: Stable Problem Specific Plan: Monitor Clinically Problem Text: stable blood sugars. RISS per protocol Plan/VTE VTE Prophylaxis Ordered?: Yes (aspirin, teds/SCDs) VS, I&O, 24H, Fishbone Vital Signs/I&O Vital Signs Date Time Temp Pulse Resp B/P (MAP) Pulse Ox O2 Delivery O2 Flow Rate FiO2 10/20/17 12:00 97.4 86 18 160/92 (114) 94 Room Air I&O- Last 24 Hours up to 6 AM 10/21/17 06:00 Intake Total 480 ml Balance 480 ml Laboratory Data 24H LABS Laboratory Tests 2 10/19/17 16:26: Bedside Glucose (Misc Panel) 79L 10/19/17 21:42: Bedside Glucose (Misc Panel) 299H 10/20/17 04:58: Immature Granulocyte % (Auto) 0.2H, White Blood Count 8.3, Red Blood Count 4.45 , Hemoglobin 12.6, Hematocrit 37.2, Mean Corpuscular Volume 83.6, Mean Corpuscular Hemoglobin 28.3, Mean Corpuscular Hemoglobin Concent 33.9, Red Cell Distribution Width 13.8, Platelet Count 239, Neutrophils (%) (Auto) 53.1, Lymphocytes (%) (Auto) 32.5, Monocytes (%) (Auto) 8.4H, Eosinophils (%) (Auto) 5.3H, Basophils (%) (Auto) 0.5, Neutrophils # (Auto) 4.4, Lymphocytes # (Auto) 2.7, Monocytes # (Auto) 0.7, Eosinophils # (Auto) 0.4, Basophils # (Auto) 0.0, Immature Granulocyte # (Auto) 0.0, Nucleated Red Blood Cells % (auto) 0.0, Anion Gap 8, Glomerular Filtration Rate > 60.0, Blood Urea Nitrogen 6L, Creatinine 0.90, Sodium Level 143, Potassium Level 3.5, Chloride Level 110H, Carbon Dioxide Level 25, Calcium Level 8.8, Aspartate Amino Transf (AST/SGOT) 17 , Alanine Aminotransferase (ALT/SGPT) 25, Alkaline Phosphatase 73, Total Bilirubin 0.8, Total Protein 6.9, Albumin 3.4, Magnesium Level 1.9, Albumin/ Globulin Ratio 0.97L 10/20/17 11:41: Bedside Glucose (Misc Panel) 237H CBC/BMP Laboratory Tests 10/20/17 04:58 Red Blood Count 4.45, Mean Corpuscular Volume 83.6, Mean Corpuscular Hemoglobin 28.3, Mean Corpuscular Hemoglobin Concent 33.9, Red Cell Distribution Width 13.8 , Neutrophils (%) (Auto) 53.1, Lymphocytes (%) (Auto) 32.5, Monocytes (%) (Auto ) 8.4 H, Eosinophils (%) (Auto) 5.3 H, Basophils (%) (Auto) 0.5, Neutrophils # ( Auto) 4.4, Lymphocytes # (Auto) 2.7, Monocytes # (Auto) 0.7, Eosinophils # (Auto ) 0.4, Basophils # (Auto) 0.0, Calcium Level 8.8, Aspartate Amino Transf (AST/ SGOT) 17, Alanine Aminotransferase (ALT/SGPT) 25, Alkaline Phosphatase 73, Total Bilirubin 0.8, Total Protein 6.9, Albumin 3.4 GME ATTESTATION GME ATTESTATION My faculty preceptor for this patient encounter was physically present during the encounter and was fully available. All aspects of the patient interview, examination, medical decision making process, and medical care plan development were reviewed and approved by the faculty preceptor. The faculty preceptor is aware and concurs with the plan as stated in the body of this note and will attest to such by his/her cosignature. LEILANI BUENO DO Oct 20, 2017 16:21
[2017-10-21 04:00] VITALS: BP 171/78
[2017-10-21 05:34] LABS: BASO % 0.4 % (0.0-1.0); EOS # 0.5 10^3/uL (0.0-0.50); EOS % 5.9 % (0.0-3.0); IMMATURE GRANULOCYTE % 0.2 % (0-0); LYMPH # 2.8 10^3/uL (1.5-4.5); LYMPH % 30.4 % (24.0-44.0); MEAN CORPUSCULAR HEMOGLOBIN 28.3 pg (27.0-33.0); MEAN CORPUSCULAR HGB CONC 33.9 g/dl (32.0-36.5); MEAN CORPUSCULAR VOLUME 83.5 fl (80.0-96.0); MONO # 0.7 10^3/uL (0.0-0.8); MONO % 7.6 % (0.0-5.0); NEUTROPHILS % 55.5 % (36.0-66.0); PLATELET COUNT, AUTOMATED 241 10^3/uL (150-450); RED CELL DISTRIBUTION WIDTH 13.8 % (11.5-14.5)
[2017-10-21 05:57] LABS: ALBUMIN 3.3 GM/DL (3.2-5.2); ALKALINE PHOSPHATASE 84 U/L (45-117); ALT/SGPT 24 U/L (12-78); ANION GAP 7 MEQ/L (8-16); AST/SGOT 16 U/L (7-37); BILIRUBIN,TOTAL 1.1 MG/DL (0.2-1.0); BLOOD UREA NITROGEN 11 MG/DL (7-18); CALCIUM LEVEL 8.8 MG/DL (8.8-10.2); CARBON DIOXIDE LEVEL 25 MEQ/L (21-32); CHLORIDE LEVEL 109 MEQ/L (98-107); CREATININE FOR GFR 0.92 MG/DL (0.55-1.02); GLOMERULAR FILTRATION RATE > 60.0 (>39); GLUCOSE, FASTING 140 MG/DL (83-110); MAGNESIUM LEVEL 2.1 MG/DL (1.8-2.4); POTASSIUM SERUM 4.2 MEQ/L (3.5-5.1); SODIUM LEVEL 141 MEQ/L (136-145); TOTAL PROTEIN 6.6 GM/DL (6.4-8.2)
[2017-10-21] MEDS: LEVOTHYROXINE 75MCG TABLET (0.075MG) PO SCH (06:29)
[2017-10-21 08:00] VITALS: BP 106/56
[2017-10-21] MEDS: DORZOLAMIDE 2% OPHTH SOLN 10 ML BTL OU SCH (08:56)
[2017-10-21] MEDS: HumaLOG INSULIN (NovoLOG) PER UNIT SC SCH ×4 (08:57→20:37)
[2017-10-21] MEDS: ASPIRIN 325 MG TAB PO SCH (08:57)
[2017-10-21] MEDS: SENOKOT S TAB PO SCH ×2 (08:57→21:00)
[2017-10-21] MEDS: FLUTICASONE PROP 0.05% NASAL SPRAY 16 GM (FLONASE) SCH (08:57)
[2017-10-21] MEDS: MAGNESIUM OXIDE 400 MG TAB (MAG-OX) PO SCH ×2 (08:58→21:26)
[2017-10-21] MEDS: LISINOPRIL 10 MG TAB PO SCH (08:58)
[2017-10-21] MEDS: oxyBUTYnin 5 MG TAB PO SCH ×2 (08:59→21:25)
[2017-10-21] MEDS: POTASSIUM CHLORIDE 10 MEQ SR TABLET PO SCH (09:13)
[2017-10-21] MEDS: ACETAMINOPHEN TAB 650MG DOSE (2X325MG) PO PRN (09:14)
--- NOTE | 2017-10-21 11:18 | IPNPDOC ---
Subjective Date Seen The patient was seen on 10/21/17. Subjective Chief Complaint/HPI The patient is a 72-year-old female admitted with a reason for visit of Cerebral Infarction. Events since last encounter Patient is doing well. She only complains of a headache at this time. She had an MRA of the brain and chest yesterday. The brain MRA was read by radiology. We are still waiting for chest MRA to be read. Questions were interpreted using video medical interpreter. Constitutional: Denies: Chills, Fever, Night Sweats ENT: Reports: Head Aches (frontal headache that started this morning at 05:00) Pulmonary: Denies: Dyspnea Cardiovascular: Denies: Chest Pain Objective Physical Examination General Exam: Positive: Alert, No Acute Distress Chest Exam: Positive: Clear to auscultation, Normal air movement, Negative: Rales, Rhonchi, Wheezing Heart Exam: Positive: Rate Normal, Regular Rhythm, Normal S1, Normal S2, Negative: Gallops, Murmurs, Rubs Telemetry: Positive: Sinus Abdomen Exam: Positive: Normal bowel sounds, Soft, Negative: Tenderness, Hepatospenomegaly, Mass Extremity Exam: Negative: Edema Assessment /Plan Assessment Patient is 72 year old female who presented after outpatient MRI showed multiple areas of ischemic infarct in the brain. She is improving and we are now looking for a source for the most likely embolic stroke she suffered. Problems (1) Cerebral infarction Status: Acute Problem Text: 10/21: No changes from yesterday. patient had no events on telemetry overnight. Etiology of embolic strokes are undetermined at this time , patient will likely require discharge with event monitor to assess for paroxysmal atrial fibrillation 10/20: Normal echo, MRA brain and chest, no events on telemetry. Strongly favor occult atrial fibrillation as MRA brain, chest, and echo were negative for embolic source. Would recommend event monitor upon discharge, hopefully will be discharged Saturday or Saturday. 10/19: Patient with essentially normal echocardiogram, LVEF of 65%, grade 1 diastolic dysfunction. Due to normal echo she will require further evaluation with MRA of brain, MRA of chest 10/18: Coagulopathy workup pending. Tele: uneventful. Echo for today. PT/OT. Family willing to give 24 hour care if needed. (2) HTN (hypertension) Status: Chronic Response to Treatment: Stable Problem Specific Plan: Monitor Clinically Problem Text: 10/21: Patient's blood pressure was 171/78 at 04:00 and fell to 106/56 at 08:00. Patient was given her home dose of lisinopril this morning. Continue to monitor. 10/20 Patient's BP has been 160/92. Restarting home dose of lisinopril tomorrow as we are now outside of the 48 hour window of CVA protocol, and carvedilol may mask a potential A fib event on telemetry tonight. well controlled BP. (3) Diabetes mellitus Status: Chronic Response to Treatment: Stable Problem Specific Plan: Monitor Clinically Problem Text: stable blood sugars. RISS per protocol Plan/VTE VTE Prophylaxis Ordered?: Yes (aspirin, teds/SCDs) VS, I&O, 24H, Fishbone Vital Signs/I&O Vital Signs Date Time Temp Pulse Resp B/P (MAP) Pulse Ox O2 Delivery O2 Flow Rate FiO2 10/21/17 08:58 106/56 10/21/17 08:00 98.9 88 17 96 Room Air I&O- Last 24 Hours up to 6 AM 10/22/17 06:00 Intake Total 0 ml Output Total 0 ml Balance 0 ml Laboratory Data 24H LABS Laboratory Tests 2 10/20/17 11:41: Bedside Glucose (Misc Panel) 237H 10/20/17 16:56: Bedside Glucose (Misc Panel) 138H 10/20/17 21:11: Bedside Glucose (Misc Panel) 148H 10/21/17 05:12: Immature Granulocyte % (Auto) 0.2H, White Blood Count 9.0, Red Blood Count 4.49 , Hemoglobin 12.7, Hematocrit 37.5, Mean Corpuscular Volume 83.5, Mean Corpuscular Hemoglobin 28.3, Mean Corpuscular Hemoglobin Concent 33.9, Red Cell Distribution Width 13.8, Platelet Count 241, Neutrophils (%) (Auto) 55.5, Lymphocytes (%) (Auto) 30.4, Monocytes (%) (Auto) 7.6H, Eosinophils (%) (Auto) 5.9H, Basophils (%) (Auto) 0.4, Neutrophils # (Auto) 5.0, Lymphocytes # (Auto) 2.8, Monocytes # (Auto) 0.7, Eosinophils # (Auto) 0.5, Basophils # (Auto) 0.0, Immature Granulocyte # (Auto) 0.0, Nucleated Red Blood Cells % (auto) 0.0, Anion Gap 7L, Glomerular Filtration Rate > 60.0, Blood Urea Nitrogen 11#, Creatinine 0.92, Sodium Level 141, Potassium Level 4.2, Chloride Level 109H, Carbon Dioxide Level 25, Calcium Level 8.8, Aspartate Amino Transf (AST/SGOT) 16 , Alanine Aminotransferase (ALT/SGPT) 24, Alkaline Phosphatase 84, Total Bilirubin 1.1H, Total Protein 6.6, Albumin 3.3, Magnesium Level 2.1, Albumin/ Globulin Ratio 1.00 CBC/BMP Laboratory Tests 10/21/17 05:12 Red Blood Count 4.49, Mean Corpuscular Volume 83.5, Mean Corpuscular Hemoglobin 28.3, Mean Corpuscular Hemoglobin Concent 33.9, Red Cell Distribution Width 13.8 , Neutrophils (%) (Auto) 55.5, Lymphocytes (%) (Auto) 30.4, Monocytes (%) (Auto ) 7.6 H, Eosinophils (%) (Auto) 5.9 H, Basophils (%) (Auto) 0.4, Neutrophils # ( Auto) 5.0, Lymphocytes # (Auto) 2.8, Monocytes # (Auto) 0.7, Eosinophils # (Auto ) 0.5, Basophils # (Auto) 0.0, Calcium Level 8.8, Aspartate Amino Transf (AST/ SGOT) 16, Alanine Aminotransferase (ALT/SGPT) 24, Alkaline Phosphatase 84, Total Bilirubin 1.1 H, Total Protein 6.6, Albumin 3.3 GME ATTESTATION GME ATTESTATION My faculty preceptor for this patient encounter was physically present during the encounter and was fully available. All aspects of the patient interview, examination, medical decision making process, and medical care plan development were reviewed and approved by the faculty preceptor. The faculty preceptor is aware and concurs with the plan as stated in the body of this note and will attest to such by his/her cosignature. Attending Note Attending Note Will transmit Rx for anticoagulant to assure availability at discharge. Will need to arrange Event monitor for home also. JACKIE FOLEY DO Oct 21, 2017 11:18 Dariusz Soto MD Oct 21, 2017 13:25
[2017-10-21 12:00] VITALS: BP 134/61
[2017-10-21] MEDS ORDERED: ELIQ5TAB PO (13:27)
[2017-10-21 16:00] VITALS: BP 128/58
[2017-10-22] VITALS (7 sets, daily range): BP systolic 138–196; BP diastolic 62–87
[2017-10-22] MEDS: LEVOTHYROXINE 75MCG TABLET (0.075MG) PO SCH (05:29)
[2017-10-22 06:07] LABS: BASO # 0.1 10^3/uL (0.0-0.2); BASO % 0.5 % (0.0-1.0); EOS # 0.6 10^3/uL (0.0-0.50); EOS % 6.3 % (0.0-3.0); IMMATURE GRANULOCYTE % 0.3 % (0-0); LYMPH # 2.6 10^3/uL (1.5-4.5); LYMPH % 28.2 % (24.0-44.0); MEAN CORPUSCULAR HEMOGLOBIN 28.8 pg (27.0-33.0); MEAN CORPUSCULAR HGB CONC 33.5 g/dl (32.0-36.5); MONO # 0.7 10^3/uL (0.0-0.8); MONO % 7.4 % (0.0-5.0); NEUTROPHILS # 5.2 10^3/uL (1.8-7.7); NEUTROPHILS % 57.3 % (36.0-66.0); PLATELET COUNT, AUTOMATED 244 10^3/uL (150-450); RED CELL DISTRIBUTION WIDTH 13.9 % (11.5-14.5); WHITE BLOOD COUNT 9.1 10^3/uL (4.0-10.0)
[2017-10-22 06:27] LABS: ALBUMIN 3.3 GM/DL (3.2-5.2); ALBUMIN/GLOBULIN RATIO 0.92 (1.00-1.93); ALKALINE PHOSPHATASE 81 U/L (45-117); ALT/SGPT 25 U/L (12-78); ANION GAP 9 MEQ/L (8-16); AST/SGOT 17 U/L (7-37); BILIRUBIN,TOTAL 0.7 MG/DL (0.2-1.0); BLOOD UREA NITROGEN 13 MG/DL (7-18); CARBON DIOXIDE LEVEL 22 MEQ/L (21-32); CHLORIDE LEVEL 107 MEQ/L (98-107); CREATININE FOR GFR 0.85 MG/DL (0.55-1.02); GLOMERULAR FILTRATION RATE > 60.0 (>39); GLUCOSE, FASTING 155 MG/DL (83-110); POTASSIUM SERUM 4.5 MEQ/L (3.5-5.1); SODIUM LEVEL 138 MEQ/L (136-145); TOTAL PROTEIN 6.9 GM/DL (6.4-8.2)
[2017-10-22] MEDS: oxyBUTYnin 5 MG TAB PO SCH ×2 (08:18→20:43)
[2017-10-22] MEDS: LISINOPRIL 10 MG TAB PO SCH (08:18)
[2017-10-22] MEDS: SENOKOT S TAB PO SCH ×2 (08:18→20:43)
[2017-10-22] MEDS: ASPIRIN 325 MG TAB PO SCH (08:18)
[2017-10-22] MEDS: MAGNESIUM OXIDE 400 MG TAB (MAG-OX) PO SCH ×2 (08:19→20:43)
[2017-10-22] MEDS: DORZOLAMIDE 2% OPHTH SOLN 10 ML BTL OU SCH (08:19)
[2017-10-22] MEDS: FLUTICASONE PROP 0.05% NASAL SPRAY 16 GM (FLONASE) SCH (08:19)
[2017-10-22] MEDS: POTASSIUM CHLORIDE 10 MEQ SR TABLET PO SCH (08:19)
[2017-10-22] MEDS: HumaLOG INSULIN (NovoLOG) PER UNIT SC SCH (08:20)
--- NOTE | 2017-10-22 10:34 | IPNPDOC ---
Subjective Date Seen The patient was seen on 10/22/17. Subjective Chief Complaint/HPI The patient is a 72-year-old female admitted with a reason for visit of Cerebral Infarction. Events since last encounter Grandson at bedside. Reports that Aliza seems back to baseline from the standpoint of her memory. no further confusion, headache or double vision Constitutional: Denies: Chills, Fever Pulmonary: Denies: Dyspnea, Cough Cardiovascular: Denies: Chest Pain, Palpitations Gastrointestinal: Denies: Nausea, Vomiting, Abdominal Pain, Diarrhea, Constipation Objective Physical Examination General Exam: Positive: Alert, No Acute Distress Chest Exam: Positive: Clear to auscultation, Normal air movement, Negative: Rales, Rhonchi, Wheezing Heart Exam: Positive: Rate Normal, Regular Rhythm, Normal S1, Normal S2, Negative: Gallops, Murmurs, Rubs Telemetry: Positive: Sinus Abdomen Exam: Positive: Normal bowel sounds, Soft, Negative: Tenderness, Hepatospenomegaly, Mass Extremity Exam: Negative: Edema Assessment /Plan Problems (1) Cerebral infarction Status: Acute Problem Text: 10/22 - MRA - normal with small petechial hemorrhage in caudate nucleus unchanged. Suspect embolic source from paroxysmal a-fib but none on tele. Telemetry continues to show NSR Normal Echo - LVEF of 65%, grade 1 diastolic dysfunction. MRA chest still pending Coagulopathy wkup in progress. - Protein s slightly low? Plan outpatient event monitor consult Neurology to give opinion regarding results of MRI and possible start of anticoagulation in patient iwth presumed a-fib (2) HTN (hypertension) Status: Chronic Response to Treatment: Stable Problem Specific Plan: Monitor Clinically Problem Text: 10/22 - BP controlled on Lisinopril (3) Diabetes mellitus Status: Chronic Response to Treatment: Stable Problem Specific Plan: Monitor Clinically Problem Text: stable blood sugars. RISS per protocol Plan/VTE VTE Prophylaxis Ordered?: Yes (aspirin, teds/SCDs) Disposition Home with 24 hour care once stable per Neurology VS, I&O, 24H, [place] Vital Signs/I&O Vital Signs Date Time Temp Pulse Resp B/P (MAP) Pulse Ox O2 Delivery O2 Flow Rate FiO2 10/22/17 08:18 142/63 10/22/17 07:37 98.3 78 18 97 Room Air I&O- Last 24 Hours up to 6 AM 10/23/17 06:00 Intake Total 0 ml Balance 0 ml Laboratory Data 24H LABS Laboratory Tests 2 10/21/17 11:35: Bedside Glucose (Misc Panel) 203H 10/21/17 16:48: Bedside Glucose (Misc Panel) 150H 10/21/17 20:31: Bedside Glucose (Misc Panel) 176H 10/22/17 05:52: Immature Granulocyte % (Auto) 0.3H, White Blood Count 9.1, Red Blood Count 4.44 , Hemoglobin 12.8, Hematocrit 38.2, Mean Corpuscular Volume 86.0, Mean Corpuscular Hemoglobin 28.8, Mean Corpuscular Hemoglobin Concent 33.5, Red Cell Distribution Width 13.9, Platelet Count 244, Neutrophils (%) (Auto) 57.3, Lymphocytes (%) (Auto) 28.2, Monocytes (%) (Auto) 7.4H, Eosinophils (%) (Auto) 6.3H, Basophils (%) (Auto) 0.5, Neutrophils # (Auto) 5.2, Lymphocytes # (Auto) 2.6, Monocytes # (Auto) 0.7, Eosinophils # (Auto) 0.6H, Basophils # (Auto) 0.1, Immature Granulocyte # (Auto) 0.0, Nucleated Red Blood Cells % (auto) 0.0, Anion Gap 9, Glomerular Filtration Rate > 60.0, Blood Urea Nitrogen 13, Creatinine 0.85, Sodium Level 138, Potassium Level 4.5, Chloride Level 107, Carbon Dioxide Level 22, Calcium Level 9.0, Aspartate Amino Transf (AST/SGOT) 17 , Alanine Aminotransferase (ALT/SGPT) 25, Alkaline Phosphatase 81, Total Bilirubin 0.7, Total Protein 6.9, Albumin 3.3, Albumin/Globulin Ratio 0.92L CBC/BMP Laboratory Tests 10/22/17 05:52 Red Blood Count 4.44, Mean Corpuscular Volume 86.0, Mean Corpuscular Hemoglobin 28.8, Mean Corpuscular Hemoglobin Concent 33.5, Red Cell Distribution Width 13.9 , Neutrophils (%) (Auto) 57.3, Lymphocytes (%) (Auto) 28.2, Monocytes (%) (Auto ) 7.4 H, Eosinophils (%) (Auto) 6.3 H, Basophils (%) (Auto) 0.5, Neutrophils # ( Auto) 5.2, Lymphocytes # (Auto) 2.6, Monocytes # (Auto) 0.7, Eosinophils # (Auto ) 0.6 H, Basophils # (Auto) 0.1, Calcium Level 9.0, Aspartate Amino Transf (AST/ SGOT) 17, Alanine Aminotransferase (ALT/SGPT) 25, Alkaline Phosphatase 81, Total Bilirubin 0.7, Total Protein 6.9, Albumin 3.3 JENNIFER LEE PA-C Oct 22, 2017 10:34
[2017-10-22] MEDS ORDERED: LISINOPRIL 10 MG TAB PO ONE (17:45)
--- NOTE | 2017-10-22 19:20 | REPUSA ---
CT of the head Clinical history: intracranial hemorrhage. Comparison: 10/17/2017. Protocol: Multiple axial CT images obtained with 5 mm slice thickness were obtained through the head without administration of contrast. Findings: The ventricles and sulci are symmetric but prominent in size bilaterally. There are periven tricular areas of low attenuation throughout the deep white matter. The focal hyperdense lesion in th e right cerebellar with stable. There is no evidence of acute infarct. There is no midline shift, mas s effect, or extra-axial fluid collection. The osseous structures are unremarkable. The visualized pa ranasal sinuses and mastoid air cells are clear. Impression: 1. The small focus of hemorrhage in the right cerebellum is stable in size and appearance since the p rior study. No new hemorrhage is are appreciated. 2. No acute infarct. Findings are consistent with stable age-related atrophy and chronic small vessel ischemic disease.
[2017-10-22] MEDS ORDERED: CARVedilol 6.25 MG TAB PO ONE (23:45)
[2017-10-23 02:14] VITALS: BP 162/68
[2017-10-23] MEDS: LEVOTHYROXINE 75MCG TABLET (0.075MG) PO SCH (05:43)
[2017-10-23 06:00] VITALS: BP 118/66
[2017-10-23 06:21] LABS: BASO % 0.5 % (0.0-1.0); EOS # 0.6 10^3/uL (0.0-0.50); EOS % 6.7 % (0.0-3.0); IMMATURE GRANULOCYTE % 0.5 % (0-0); LYMPH # 2.8 10^3/uL (1.5-4.5); LYMPH % 33.3 % (24.0-44.0); MEAN CORPUSCULAR HEMOGLOBIN 28.8 pg (27.0-33.0); MEAN CORPUSCULAR HGB CONC 33.9 g/dl (32.0-36.5); MEAN CORPUSCULAR VOLUME 84.8 fl (80.0-96.0); MONO # 0.7 10^3/uL (0.0-0.8); MONO % 8.2 % (0.0-5.0); NEUTROPHILS # 4.2 10^3/uL (1.8-7.7); NEUTROPHILS % 50.8 % (36.0-66.0); PLATELET COUNT, AUTOMATED 266 10^3/uL (150-450); RED CELL DISTRIBUTION WIDTH 13.8 % (11.5-14.5); WHITE BLOOD COUNT 8.3 10^3/uL (4.0-10.0)
[2017-10-23 06:43] LABS: ALBUMIN 3.5 GM/DL (3.2-5.2); ALBUMIN/GLOBULIN RATIO 0.88 (1.00-1.93); BILIRUBIN,TOTAL 0.9 MG/DL (0.2-1.0); CALCIUM LEVEL 9.1 MG/DL (8.8-10.2); CREATININE FOR GFR 0.99 MG/DL (0.55-1.02); GLOMERULAR FILTRATION RATE 58.4 (>39); POTASSIUM SERUM 4.4 MEQ/L (3.5-5.1); TOTAL PROTEIN 7.5 GM/DL (6.4-8.2)
--- NOTE | 2017-10-23 07:38 | CR ---
DATE OF CONSULTATION: 10/22/2017 REFERRING PHYSICIAN: Dr. Dariusz Soto. REASON FOR CONSULTATION: Multifocal bilateral ischemic strokes with petechial hemorrhage and left basal ganglia hemorrhage. HISTORY OF PRESENT ILLNESS: Aliza Tyler is a 72-year-old woman who was living alone and according to her grandchildren who helped during this interview as interpreters, she started getting headaches 1-1/2 months ago along with double vision. She was noted to be forgetful and there was on cognition over the last couple of weeks. The also noted word-finding difficulty. She has improved from these symptoms. She speaks only French. She denies any neck or back pain. She denies any headache currently. She had an MRI scan of the brain on 10/16/2017 before hospital admission which showed multifocal bilateral acute ischemic strokes with small petechial left basal ganglia hemorrhage. CT scan of the brain the next day showed similar findings after she was admitted to [facility]. Her telemonitoring has not shown atrial fibrillation, although there is strong suspicion for cardioembolic phenomenon. Her echocardiogram, MRA of the brain and ultrasound of the neck have been unremarkable except less than 50% bilateral carotid artery stenosis. Due to strong suspicion for cardioembolic stroke, anticoagulation is being considered. SOCIAL HISTORY: She denies smoking, alcohol or illicit drugs. FAMILY HISTORY: She denies any family history of strokes. ALLERGIES: SIMVASTATIN. PAST MEDICAL HISTORY: Dyslipidemia. Hypothyroidism. Glaucoma. Type 2 diabetes. Breast cancer. Uterine cancer. MEDICATIONS: - lisinopril 2.5 mg by mouth daily - glipizide 5 mg by mouth daily - simvastatin 40 mg by mouth daily - metformin 500 mg by mouth twice a day - levothyroxine 50 mcg by mouth daily - Xalatan Trusopt eye drops - aspirin 325 mg by mouth daily REVIEW OF SYSTEMS: All systems were reviewed and reported to be noncontributory except as mentioned in the history of present illness. PHYSICAL EXAMINATION: Temperature 98, pulse 91, respiratory 20, blood pressure 108/57. HEART: Regular rate and rhythm. LUNGS: Clear to auscultation. ABDOMEN: Soft, nontender, nondistended. EXTREMITIES: No pedal edema. MUSCULOSKELETAL: No gross musculoskeletal abnormalities. SKIN: No rash. ENT: Within normal limits. The patient is awake, alert, and oriented. She only speaks French. Her grandchildren help me during this visit. Her speech is normal. Extraocular muscles intact. No facial weakness. Tongue and uvula are midline. 5/5 strength in all four extremities. She has mild left-sided dysmetria. Sensations are normal. Deep tendon reflexes are 2+ throughout. Plantars are downgoing. Gait is not tested. DIAGNOSTIC STUDIES: Her MRI and MRA and ultrasound of carotid arteries are summarized above. Her echocardiogram showed mitral valve calcification and mild aortic sclerosis. Report of her MRA of the chest is pending. ASSESSMENT: 1. Multifocal bilateral acute ischemic strokes. 2. Suspected cardioembolic strokes. 3. Small left basal ganglia petechial hemorrhage within ischemic stroke. 4. Suspected paroxysmal atrial fibrillation. PLAN: 1. CT scan of the head to see resolution of left basal ganglia petechial hemorrhage within ischemic stroke. 2. Continued aspirin 325 mg by mouth daily. 3. If CT scan of the head shows complete resolution of the left basal ganglia hemorrhage, then we can consider switching her to Eliquis or Xarelto with the strong suspicion for cardioembolic phenomenon. 4. Physical and occupational therapy. 5. We await her blood tests for coagulopathy. Her mildly reduced protein S is likely due to thromboembolic phenomenon which has already happened. Her protein C and antithrombin 3 were negative. Other tests are pending presently. 6. Followup in our office in 1 month after hospital discharge. She will also need long-term heart rhythm monitoring.
[2017-10-23] MEDS: DORZOLAMIDE 2% OPHTH SOLN 10 ML BTL OU SCH (08:50)
[2017-10-23] MEDS: ASPIRIN 325 MG TAB PO SCH (08:50)
[2017-10-23] MEDS: FLUTICASONE PROP 0.05% NASAL SPRAY 16 GM (FLONASE) SCH (08:50)
[2017-10-23] MEDS: MAGNESIUM OXIDE 400 MG TAB (MAG-OX) PO SCH (08:50)
[2017-10-23] MEDS: POTASSIUM CHLORIDE 10 MEQ SR TABLET PO SCH (08:51)
[2017-10-23 08:52] VITALS: BP 145/84
[2017-10-23] MEDS: SENOKOT S TAB PO SCH (08:52)
[2017-10-23] MEDS: oxyBUTYnin 5 MG TAB PO SCH (08:53)
[2017-10-23] MEDS ORDERED: LISINOPRIL 10 MG TAB PO SCH (09:00)
[2017-10-23] MEDS ORDERED: ASPI1TAB20 PO (09:18)
[2017-10-23] MEDS ORDERED: POTA10CA PO (09:18)
--- NOTE | 2017-10-23 11:02 | DSES ---
DATE OF ADMISSION: 10/18/2017 DATE OF DISCHARGE: BRIEF HISTORY AND PHYSICAL: The patient is a 72-year-old who started getting headaches about 1-1/2 months ago with some double vision, started to become more forgetful over last couple of weeks with difficulty finding words. She an MRI of the brain on 10/16/2017 that showed multifocal bilateral acute ischemic strokes with small petechial left basal ganglia hemorrhages. CT of the brain showed similar findings after she was admitted to [facility]. PAST MEDICAL HISTORY: Significant for: 1. Diabetes. 2. Hypothyroidism. 3. Hyperlipidemia. 4. Breast cancer. 5. Uterine cancer. 6. Glaucoma. PERTINENT LABS ON ADMISSION: Sodium 146, potassium 4, BUN 10, creatinine 0.95, glucose 126, white count 7.2, hemoglobin 13, platelets 254,000. HOSPITAL COURSE: 1. The patient was admitted for multifocal bilateral acute ischemic strokes suspected to be a cardioembolic. She was placed on telemetry and has remained on telemetry throughout her hospitalization . We presume that she has atrial fibrillation, however telemetry has not revealed any episodes of atrial fibrillation during her hospitalization. Dr. Barragan saw the patient in consultation. Workup included echocardiogram, MRA of the brain and ultrasound of the neck which were unremarkable except for less than 50% bilateral carotid artery stenosis. Due to the likelihood of cardioembolic etiology, anticoagulation is being considered however, her MRI and CT scans shown a left basal ganglia hemorrhage and therefore we will need to hold off on anticoagulation until this has completely resolved. For now she will be discharged home on aspirin 325 mg daily and follow up with neurology in 1 month to consider anticoagulation. Of note, Eliquis has been sent to the pharmacy and the daughter has already picked this up. I spoke with her today. She is aware that the patient is not to start the Eliquis. They will hold onto the Eliquis until she is told to start this. In the meantime, she is aware that she will need to start aspirin 325 mg daily. Also the case is discussed informally with Dr. Miller who will see the patient in followup. The patient will leave here today and go directly to Dr. Miller's office to have a 30-day event monitor placed to continue to monitor for the presumed atrial fibrillation and she will followup with Dr. Miller's office. Finally she did have a coagulopathy workup. She has a mildly reduced protein S likely due to thromboembolic phenomenon. Her protein C and antithrombin III were negative. Other tests are still pending. Her aphasia has resolved as has her diplopia. Her neuro status is back to baseline. I communicated the above plan with her daughter Naman, phone number [phone], as well as her grandson who is in the room today who tends to be the one administering her medications at home. 2. Diabetes mellitus type 2. Her metformin and Amaryl were held during the hospitalization and will be restarted upon discharge. 3. Hypokalemia. She has had some potassium started and will continue this upon discharge. 4. History of hypertension. Blood pressure is controlled on lisinopril. DISPOSITION: The patient is stable for discharge home. Follow up with Micheline Solano next week. Diet - inconsistent carbohydrate. Activity as tolerated. MEDICATIONS: - aspirin 325 mg daily - potassium 20 mEq daily - glipizide 2.5 mg daily - latanoprost one drop both eyes at bedtime - levothyroxine 75 mcg daily - lisinopril 10 mg daily - loratadine 10 mg at bedtime - magnesium 500 mg daily - metformin 1000 mg twice a day - vitamin D 50,000 international units monthly - Eliquis prescription has been sent her pharmacy but she should not start this. She will be going directly to Dr. Miller's office to have a heart monitor placed today. She will followup with Dr. Miller in his office and follow up with Dr. Barragan in 1 month. DISCHARGE DIAGNOSES: 1. Multifocal bilateral acute ischemic stroke. 2. Suspected cardioembolic stroke. 3. Small left basal ganglia petechial hemorrhage within the ischemic stroke. 4. Diabetes type 2. 5. Hypertension.
--- NOTE | 2017-10-24 11:21 | REP ---
Clinical: Cerebrovascular accident. Technique: Postcontrast coronal 3-D images using 30 ml ProHance gadolinium based contrast material with volume rendered rotational re-formations. Findings: Examination is significantly limited due to technical factors. There is evidence to support moderate atheromatous plaquing of the aortic arch, right brachiocephalic artery, visualized left common carotid and left subclavian arteries. Impression: Limited examination with evidence for moderate atheromatous plaquing of the aortic arch with atheromatous narrowing to the major arch branch vessels. Signed by Armando Todd MD 10/24/2017 11:13 A
== END 2017-10-23 13:34 | disposition home or self-care (01) | DRG 45 ==
LOC: M ED 10:08 → M ED INP 11:53 → M PCU 16:07 → OBSVTOIN 10-18 13:40 → M MSPAV 10-22 16:20
PROVIDERS: ADMIT Family Medicine; ATTEND Family Medicine
DX: I63.40 Cerebral infarction due to embolism of unspecified cerebral artery (principal); I61.0 Nontraumatic intracerebral hemorrhage in hemisphere, subcortical; I48.0 Paroxysmal atrial fibrillation; E11.9 Type 2 diabetes mellitus without complications; I10 Essential (primary) hypertension; E03.9 Hypothyroidism, unspecified; E78.5 Hyperlipidemia, unspecified; K59.00 Constipation, unspecified; F32.9 Major depressive disorder, single episode, unspecified; H40.9 Unspecified glaucoma; G47.00 Insomnia, unspecified; E87.6 Hypokalemia; N39.41 Urge incontinence; Z90.12 Acquired absence of left breast and nipple; Z85.42 Personal history of malignant neoplasm of other parts of uterus; Z90.710 Acquired absence of both cervix and uterus; Z88.8 Allergy status to other drugs, medicaments and biological substances; Z79.84 Long term (current) use of oral hypoglycemic drugs; Z79.899 Other long term (current) drug therapy; Z85.3 Personal history of malignant neoplasm of breast

== ENCOUNTER 2017-11-05 11:12 | Inpatient (IN) | payer OTHER ==
[2017-11-05 12:26] LABS: BASO % 0.4 % (0.0-1.0); EOS # 0.3 10^3/uL (0.0-0.50); IMMATURE GRANULOCYTE % 0.3 % (0-0); LYMPH % 27.1 % (24.0-44.0); MEAN CORPUSCULAR HEMOGLOBIN 28.9 pg (27.0-33.0); MEAN CORPUSCULAR HGB CONC 33.6 g/dl (32.0-36.5); MONO # 0.7 10^3/uL (0.0-0.8); MONO % 6.7 % (0.0-5.0); NEUTROPHILS # 6.8 10^3/uL (1.8-7.7); NEUTROPHILS % 62.5 % (36.0-66.0); PLATELET COUNT, AUTOMATED 281 10^3/uL (150-450); RED CELL DISTRIBUTION WIDTH 13.9 % (11.5-14.5); WHITE BLOOD COUNT 10.9 10^3/uL (4.0-10.0)
[2017-11-05 14:19] LABS: ALBUMIN 3.8 GM/DL (3.2-5.2); ALBUMIN/GLOBULIN RATIO 1.23 (1.00-1.93); ALKALINE PHOSPHATASE 87 U/L (45-117); ALT/SGPT 27 U/L (12-78); ANION GAP 11 MEQ/L (8-16); AST/SGOT 19 U/L (7-37); BILIRUBIN,DIRECT 0.2 MG/DL (0.0-0.2); BILIRUBIN,TOTAL 0.7 MG/DL (0.2-1.0); BLOOD UREA NITROGEN 16 MG/DL (7-18); CALCIUM LEVEL 9.1 MG/DL (8.8-10.2); CARBON DIOXIDE LEVEL 23 MEQ/L (21-32); CHLORIDE LEVEL 109 MEQ/L (98-107); CREATININE FOR GFR 1.03 MG/DL (0.55-1.02); GLOMERULAR FILTRATION RATE 55.8 (>39); GLUCOSE, FASTING 90 MG/DL (83-110); POTASSIUM SERUM 4.9 MEQ/L (3.5-5.1); SODIUM LEVEL 143 MEQ/L (136-145); TOTAL PROTEIN 6.9 GM/DL (6.4-8.2)
[2017-11-05] MEDS ORDERED: BISACODYL 5 MG TAB PO (15:30)
[2017-11-05] MEDS ORDERED: GLUCAGON FOR INJ 1 MG VIAL (J1610) SC (15:45)
[2017-11-05] MEDS ORDERED: DEXTROSE 50% 50 ML SYRINGE IV (15:45)
[2017-11-05] MEDS ORDERED: GLUCOSE 4 GM CHEW TABLET PO (15:45)
[2017-11-05] MEDS: HumaLOG INSULIN (NovoLOG) PER UNIT SC ×2 (19:02→20:23)
[2017-11-05] MEDS: DORZOLAMIDE 2% OPHTH SOLN 10 ML BTL OU (20:20)
[2017-11-05] MEDS: LATANOPROST 0.005% OPHTH SOLN 2.5 ML OU (20:20)
[2017-11-05] MEDS: FLUTICASONE PROP 0.05% NASAL SPRAY 16 GM (FLONASE) (20:20)
[2017-11-05] MEDS: LABETALOL HCL 100 MG/20 ML VIAL IV (20:21)
[2017-11-05] MEDS: LORATADINE 10 MG TAB PO (20:21)
[2017-11-05] MEDS: APIXABAN 2.5 MG TAB (ELIQUIS) PO (20:21)
[2017-11-05] MEDS: LISINOPRIL 10 MG TAB PO (20:21)
[2017-11-05] MEDS: NITROGLYCERIN 2% OINT 1 GM *U/D* PKT TOP (20:21)
[2017-11-05] MEDS ORDERED: HEPARIN SOD (PORCINE) 5000 UNITS/ML VIAL SC (22:00)
[2017-11-06] MEDS: LABETALOL HCL 100 MG/20 ML VIAL IV ×4 (02:35→20:49)
[2017-11-06] MEDS: NITROGLYCERIN 2% OINT 1 GM *U/D* PKT TOP ×3 (04:10→08:07)
[2017-11-06] MEDS: LEVOTHYROXINE 75MCG TABLET (0.075MG) PO (05:54)
[2017-11-06 06:44] LABS: MEAN CORPUSCULAR HEMOGLOBIN 29.4 pg (27.0-33.0); MEAN CORPUSCULAR HGB CONC 34.5 g/dl (32.0-36.5); MEAN CORPUSCULAR VOLUME 85.2 fl (80.0-96.0); PLATELET COUNT, AUTOMATED 257 10^3/uL (150-450); RED CELL DISTRIBUTION WIDTH 13.8 % (11.5-14.5); WHITE BLOOD COUNT 8.6 10^3/uL (4.0-10.0)
[2017-11-06 07:03] LABS: ESTIMATED AVERAGE GLUCOSE 169 MG/DL (60-110)
[2017-11-06 07:18] LABS: ANION GAP 10 MEQ/L (8-16); BLOOD UREA NITROGEN 18 MG/DL (7-18); CALCIUM LEVEL 9.1 MG/DL (8.8-10.2); CARBON DIOXIDE LEVEL 22 MEQ/L (21-32); CHLORIDE LEVEL 107 MEQ/L (98-107); CREATININE FOR GFR 0.95 MG/DL (0.55-1.02); GLOMERULAR FILTRATION RATE > 60.0 (>39); GLUCOSE, FASTING 134 MG/DL (83-110); POTASSIUM SERUM 4.4 MEQ/L (3.5-5.1); SODIUM LEVEL 139 MEQ/L (136-145)
[2017-11-06] MEDS: POTASSIUM CHLORIDE 10 MEQ SR TABLET PO (08:54)
[2017-11-06] MEDS: HumaLOG INSULIN (NovoLOG) PER UNIT SC ×4 (08:55→21:00)
[2017-11-06] MEDS: MAGNESIUM GLUCONATE 500 MG TAB PO (09:18)
[2017-11-06] MEDS: APIXABAN 2.5 MG TAB (ELIQUIS) PO ×2 (09:18→20:48)
[2017-11-06] MEDS: DORZOLAMIDE 2% OPHTH SOLN 10 ML BTL OU ×2 (09:19→20:49)
[2017-11-06] MEDS: glipiZIDE *XL* 2.5MG TABLET PO (12:57)
[2017-11-06 13:20] LABS: MAGNESIUM LEVEL 1.9 MG/DL (1.8-2.4)
[2017-11-06] MEDS ORDERED: ANUSOL HC CREAM 30GM TOP (18:30)
[2017-11-06] MEDS: LORATADINE 10 MG TAB PO (20:48)
[2017-11-06] MEDS: LISINOPRIL 10 MG TAB PO (20:48)
[2017-11-06] MEDS: LATANOPROST 0.005% OPHTH SOLN 2.5 ML OU (20:49)
[2017-11-06] MEDS: FLUTICASONE PROP 0.05% NASAL SPRAY 16 GM (FLONASE) (20:49)
[2017-11-07] MEDS: LABETALOL HCL 100 MG/20 ML VIAL IV ×2 (02:24→09:59)
[2017-11-07] MEDS: LEVOTHYROXINE 75MCG TABLET (0.075MG) PO (06:22)
[2017-11-07] MEDS: HumaLOG INSULIN (NovoLOG) PER UNIT SC ×4 (09:59→21:00)
[2017-11-07] MEDS: POTASSIUM CHLORIDE 10 MEQ SR TABLET PO ×2 (10:00→10:39)
[2017-11-07] MEDS: DORZOLAMIDE 2% OPHTH SOLN 10 ML BTL OU ×2 (10:00→21:56)
[2017-11-07] MEDS: APIXABAN 2.5 MG TAB (ELIQUIS) PO ×2 (10:00→21:54)
[2017-11-07] MEDS: MAGNESIUM GLUCONATE 500 MG TAB PO (12:07)
[2017-11-07] MEDS: ACETAMINOPHEN TAB 650MG DOSE (2X325MG) PO (16:38)
[2017-11-07] MEDS: LORATADINE 10 MG TAB PO (21:54)
[2017-11-07] MEDS: LABETALOL 100 MG TAB PO (21:55)
[2017-11-07] MEDS: LISINOPRIL 10 MG TAB PO (21:55)
[2017-11-07] MEDS: FLUTICASONE PROP 0.05% NASAL SPRAY 16 GM (FLONASE) (21:56)
[2017-11-07] MEDS: LATANOPROST 0.005% OPHTH SOLN 2.5 ML OU (21:56)
[2017-11-08] MEDS: LEVOTHYROXINE 75MCG TABLET (0.075MG) PO (05:45)
[2017-11-08] MEDS: POTASSIUM CHLORIDE 10 MEQ SR TABLET PO (07:36)
[2017-11-08] MEDS: APIXABAN 2.5 MG TAB (ELIQUIS) PO (07:36)
[2017-11-08] MEDS: LABETALOL 100 MG TAB PO ×2 (07:37→21:44)
[2017-11-08] MEDS: DORZOLAMIDE 2% OPHTH SOLN 10 ML BTL OU ×2 (07:38→21:44)
[2017-11-08] MEDS: HumaLOG INSULIN (NovoLOG) PER UNIT SC ×4 (07:38→21:00)
[2017-11-08] MEDS: MAGNESIUM GLUCONATE 500 MG TAB PO (07:38)
[2017-11-08] MEDS: ONDANSETRON 4MG/2ML VIAL (J2405) IV ×2 (09:21→14:00)
[2017-11-08] MEDS ORDERED: SLF 3 ML SYR IV (10:30)
[2017-11-08] MEDS: ACETAMINOPHEN TAB 650MG DOSE (2X325MG) PO (11:47)
[2017-11-08] MEDS: SLF 3 ML SYR IV ×2 (13:37→21:44)
[2017-11-08 15:17] LABS: BASO % 0.2 % (0.0-1.0); EOS # 0.2 10^3/uL (0.0-0.50); EOS % 1.3 % (0.0-3.0); IMMATURE GRANULOCYTE # 0.1 10^3/uL (0-0); IMMATURE GRANULOCYTE % 0.6 % (0-0); LYMPH # 1.5 10^3/uL (1.5-4.5); LYMPH % 10.4 % (24.0-44.0); MEAN CORPUSCULAR HGB CONC 33.7 g/dl (32.0-36.5); MONO # 0.8 10^3/uL (0.0-0.8); MONO % 5.4 % (0.0-5.0); NEUTROPHILS # 11.7 10^3/uL (1.8-7.7); NEUTROPHILS % 82.1 % (36.0-66.0); PLATELET COUNT, AUTOMATED 287 10^3/uL (150-450); WHITE BLOOD COUNT 14.2 10^3/uL (4.0-10.0)
[2017-11-08 15:49] LABS: ANION GAP 10 MEQ/L (8-16); BLOOD UREA NITROGEN 18 MG/DL (7-18); CALCIUM LEVEL 9.2 MG/DL (8.8-10.2); CARBON DIOXIDE LEVEL 22 MEQ/L (21-32); CHLORIDE LEVEL 107 MEQ/L (98-107); CREATININE FOR GFR 1.71 MG/DL (0.55-1.02); GLOMERULAR FILTRATION RATE 31.1 (>39); GLUCOSE, FASTING 183 MG/DL (83-110); SODIUM LEVEL 139 MEQ/L (136-145)
[2017-11-08] MEDS: LISINOPRIL 10 MG TAB PO (21:43)
[2017-11-08] MEDS: LORATADINE 10 MG TAB PO (21:43)
[2017-11-08] MEDS: APIXABAN 5 MG TAB (ELIQUIS) PO (21:44)
[2017-11-08] MEDS: LATANOPROST 0.005% OPHTH SOLN 2.5 ML OU (21:44)
[2017-11-08] MEDS: FLUTICASONE PROP 0.05% NASAL SPRAY 16 GM (FLONASE) (21:44)
[2017-11-09] MEDS: LEVOTHYROXINE 75MCG TABLET (0.075MG) PO (05:41)
[2017-11-09] MEDS: SLF 3 ML SYR IV ×3 (05:42→21:01)
[2017-11-09] MEDS: POTASSIUM CHLORIDE 10 MEQ SR TABLET PO (09:00)
[2017-11-09] MEDS: DORZOLAMIDE 2% OPHTH SOLN 10 ML BTL OU ×2 (09:00→21:00)
[2017-11-09] MEDS: MAGNESIUM GLUCONATE 500 MG TAB PO (09:09)
[2017-11-09] MEDS: LABETALOL 100 MG TAB PO ×2 (09:09→20:59)
[2017-11-09] MEDS: APIXABAN 5 MG TAB (ELIQUIS) PO ×2 (09:09→20:59)
[2017-11-09] MEDS: HumaLOG INSULIN (NovoLOG) PER UNIT SC ×4 (09:10→20:51)
[2017-11-09] MEDS: ACETAMINOPHEN TAB 650MG DOSE (2X325MG) PO ×2 (14:57→21:00)
[2017-11-09] MEDS: LISINOPRIL 10 MG TAB PO (20:58)
[2017-11-09] MEDS: LORATADINE 10 MG TAB PO (20:59)
[2017-11-09] MEDS: LATANOPROST 0.005% OPHTH SOLN 2.5 ML OU (21:00)
[2017-11-09] MEDS: FLUTICASONE PROP 0.05% NASAL SPRAY 16 GM (FLONASE) (21:00)
[2017-11-10 04:50] LABS: BASO % 0.3 % (0.0-1.0); EOS # 0.4 10^3/uL (0.0-0.50); EOS % 3.6 % (0.0-3.0); IMMATURE GRANULOCYTE % 0.3 % (0-0); LYMPH # 2.2 10^3/uL (1.5-4.5); LYMPH % 18.3 % (24.0-44.0); MEAN CORPUSCULAR HEMOGLOBIN 28.9 pg (27.0-33.0); MEAN CORPUSCULAR HGB CONC 33.8 g/dl (32.0-36.5); MEAN CORPUSCULAR VOLUME 85.4 fl (80.0-96.0); MONO # 0.8 10^3/uL (0.0-0.8); MONO % 6.9 % (0.0-5.0); NEUTROPHILS # 8.3 10^3/uL (1.8-7.7); NEUTROPHILS % 70.6 % (36.0-66.0); PLATELET COUNT, AUTOMATED 261 10^3/uL (150-450); RED CELL DISTRIBUTION WIDTH 13.8 % (11.5-14.5); WHITE BLOOD COUNT 11.8 10^3/uL (4.0-10.0)
[2017-11-10 04:59] LABS: ANION GAP 10 MEQ/L (8-16); BLOOD UREA NITROGEN 22 MG/DL (7-18); CALCIUM LEVEL 8.5 MG/DL (8.8-10.2); CARBON DIOXIDE LEVEL 22 MEQ/L (21-32); CHLORIDE LEVEL 106 MEQ/L (98-107); CREATININE FOR GFR 1.15 MG/DL (0.55-1.02); GLOMERULAR FILTRATION RATE 49.1 (>39); GLUCOSE, FASTING 130 MG/DL (83-110); POTASSIUM SERUM 4.5 MEQ/L (3.5-5.1); SODIUM LEVEL 138 MEQ/L (136-145)
[2017-11-10] MEDS: LEVOTHYROXINE 75MCG TABLET (0.075MG) PO (05:32)
[2017-11-10] MEDS: ACETAMINOPHEN TAB 650MG DOSE (2X325MG) PO ×2 (05:32→09:13)
[2017-11-10] MEDS: SLF 3 ML SYR IV ×3 (05:32→21:34)
[2017-11-10] MEDS: HumaLOG INSULIN (NovoLOG) PER UNIT SC ×4 (09:12→21:00)
[2017-11-10] MEDS: DORZOLAMIDE 2% OPHTH SOLN 10 ML BTL OU ×2 (09:12→21:34)
[2017-11-10] MEDS: APIXABAN 5 MG TAB (ELIQUIS) PO ×2 (09:12→21:33)
[2017-11-10] MEDS: MAGNESIUM GLUCONATE 500 MG TAB PO (09:13)
[2017-11-10] MEDS: POTASSIUM CHLORIDE 10 MEQ SR TABLET PO (09:13)
[2017-11-10] MEDS: LABETALOL 100 MG TAB PO ×2 (09:13→21:32)
[2017-11-10] MEDS: ASPIRIN 81 MG ENTERIC TAB PO (14:43)
[2017-11-10] MEDS: levETIRAcetam 250MG TABLET (KEPPRA) PO ×2 (14:43→21:32)
[2017-11-10] MEDS: LORATADINE 10 MG TAB PO (21:32)
[2017-11-10] MEDS: LISINOPRIL 10 MG TAB PO (21:33)
[2017-11-10] MEDS: FLUTICASONE PROP 0.05% NASAL SPRAY 16 GM (FLONASE) (21:34)
[2017-11-10] MEDS: LATANOPROST 0.005% OPHTH SOLN 2.5 ML OU (21:34)
[2017-11-11 05:27] LABS: BASO % 0.4 % (0.0-1.0); EOS # 0.3 10^3/uL (0.0-0.50); EOS % 3.2 % (0.0-3.0); IMMATURE GRANULOCYTE % 0.4 % (0-0); LYMPH % 18.4 % (24.0-44.0); MEAN CORPUSCULAR HEMOGLOBIN 28.7 pg (27.0-33.0); MONO # 0.8 10^3/uL (0.0-0.8); MONO % 7.4 % (0.0-5.0); NEUTROPHILS # 7.5 10^3/uL (1.8-7.7); NEUTROPHILS % 70.2 % (36.0-66.0); PLATELET COUNT, AUTOMATED 258 10^3/uL (150-450); RED CELL DISTRIBUTION WIDTH 13.9 % (11.5-14.5); WHITE BLOOD COUNT 10.6 10^3/uL (4.0-10.0)
[2017-11-11 05:47] LABS: ANION GAP 5 MEQ/L (8-16); BLOOD UREA NITROGEN 16 MG/DL (7-18); CARBON DIOXIDE LEVEL 26 MEQ/L (21-32); CHLORIDE LEVEL 108 MEQ/L (98-107); CREATININE FOR GFR 0.88 MG/DL (0.55-1.02); GLOMERULAR FILTRATION RATE > 60.0 (>39); GLUCOSE, FASTING 122 MG/DL (83-110); POTASSIUM SERUM 4.5 MEQ/L (3.5-5.1); SODIUM LEVEL 139 MEQ/L (136-145)
[2017-11-11] MEDS: LEVOTHYROXINE 75MCG TABLET (0.075MG) PO (06:00)
[2017-11-11] MEDS: SLF 3 ML SYR IV ×3 (06:30→22:49)
[2017-11-11] MEDS: MAGNESIUM GLUCONATE 500 MG TAB PO (09:07)
[2017-11-11] MEDS: levETIRAcetam 250MG TABLET (KEPPRA) PO ×2 (09:07→22:47)
[2017-11-11] MEDS: POTASSIUM CHLORIDE 10 MEQ SR TABLET PO (09:07)
[2017-11-11] MEDS: LABETALOL 100 MG TAB PO ×2 (09:08→22:47)
[2017-11-11] MEDS: ASPIRIN 81 MG ENTERIC TAB PO (09:08)
[2017-11-11] MEDS: HumaLOG INSULIN (NovoLOG) PER UNIT SC ×4 (09:08→21:00)
[2017-11-11] MEDS: APIXABAN 5 MG TAB (ELIQUIS) PO ×2 (10:25→22:46)
[2017-11-11] MEDS: DORZOLAMIDE 2% OPHTH SOLN 10 ML BTL OU ×2 (11:53→22:46)
[2017-11-11] MEDS: CEFEPIME HCL 1 GM in APPROPRIATE DILUENT 1 EA IV (11:53)
[2017-11-11] MEDS: NYSTATIN 100,000 UNITS/GM TOPICAL PWD 15 GM TOP ×2 (15:11→22:46)
[2017-11-11] MEDS: LORATADINE 10 MG TAB PO (22:46)
[2017-11-11] MEDS: CEPHALEXIN 500 MG CAP PO (22:46)
[2017-11-11] MEDS: FLUTICASONE PROP 0.05% NASAL SPRAY 16 GM (FLONASE) (22:48)
[2017-11-11] MEDS: LISINOPRIL 10 MG TAB PO (22:48)
[2017-11-11] MEDS: LATANOPROST 0.005% OPHTH SOLN 2.5 ML OU (22:51)
[2017-11-12 05:47] LABS: BASO % 0.5 % (0.0-1.0); EOS # 0.4 10^3/uL (0.0-0.50); EOS % 4.5 % (0.0-3.0); IMMATURE GRANULOCYTE # 0.1 10^3/uL (0-0); IMMATURE GRANULOCYTE % 0.6 % (0-0); LYMPH # 2.3 10^3/uL (1.5-4.5); MEAN CORPUSCULAR HEMOGLOBIN 28.7 pg (27.0-33.0); MEAN CORPUSCULAR VOLUME 87.2 fl (80.0-96.0); MONO # 0.8 10^3/uL (0.0-0.8); MONO % 8.7 % (0.0-5.0); NEUTROPHILS # 5.1 10^3/uL (1.8-7.7); NEUTROPHILS % 58.7 % (36.0-66.0); PLATELET COUNT, AUTOMATED 272 10^3/uL (150-450); WHITE BLOOD COUNT 8.6 10^3/uL (4.0-10.0)
[2017-11-12 05:56] LABS: ANION GAP 6 MEQ/L (8-16); BLOOD UREA NITROGEN 20 MG/DL (7-18); CALCIUM LEVEL 8.4 MG/DL (8.8-10.2); CARBON DIOXIDE LEVEL 22 MEQ/L (21-32); CHLORIDE LEVEL 112 MEQ/L (98-107); CREATININE FOR GFR 1.07 MG/DL (0.55-1.02); GLOMERULAR FILTRATION RATE 53.4 (>39); GLUCOSE, FASTING 168 MG/DL (83-110); SODIUM LEVEL 140 MEQ/L (136-145)
[2017-11-12] MEDS: LEVOTHYROXINE 75MCG TABLET (0.075MG) PO (06:00)
[2017-11-12] MEDS: CEPHALEXIN 500 MG CAP PO ×3 (06:46→22:02)
[2017-11-12] MEDS: SLF 3 ML SYR IV ×3 (06:47→22:01)
[2017-11-12] MEDS: ASPIRIN 81 MG ENTERIC TAB PO (09:14)
[2017-11-12] MEDS: levETIRAcetam 250MG TABLET (KEPPRA) PO ×2 (09:14→20:11)
[2017-11-12] MEDS: MAGNESIUM GLUCONATE 500 MG TAB PO (09:14)
[2017-11-12] MEDS: HumaLOG INSULIN (NovoLOG) PER UNIT SC ×4 (09:14→21:00)
[2017-11-12] MEDS: APIXABAN 5 MG TAB (ELIQUIS) PO ×2 (09:14→20:11)
[2017-11-12] MEDS: LABETALOL 100 MG TAB PO ×2 (09:15→20:11)
[2017-11-12] MEDS: LATANOPROST 0.005% OPHTH SOLN 2.5 ML OU ×2 (09:16→22:02)
[2017-11-12] MEDS: DORZOLAMIDE 2% OPHTH SOLN 10 ML BTL OU ×2 (09:16→22:02)
[2017-11-12] MEDS: NYSTATIN 100,000 UNITS/GM TOPICAL PWD 15 GM TOP ×2 (10:43→22:01)
[2017-11-12 11:56] LABS: ANION GAP 9 MEQ/L (8-16); BLOOD UREA NITROGEN 19 MG/DL (7-18); CALCIUM LEVEL 8.6 MG/DL (8.8-10.2); CARBON DIOXIDE LEVEL 22 MEQ/L (21-32); CHLORIDE LEVEL 107 MEQ/L (98-107); CREATININE FOR GFR 1.17 MG/DL (0.55-1.02); GLOMERULAR FILTRATION RATE 48.1 (>39); GLUCOSE, FASTING 223 MG/DL (83-110); POTASSIUM SERUM 5.1 MEQ/L (3.5-5.1); SODIUM LEVEL 138 MEQ/L (136-145)
[2017-11-12] MEDS ORDERED: LIDOCAINE 2% INJ 100 MG/5 ML SDV (FOR ANES.) As Ordered (17:03)
[2017-11-12] MEDS ORDERED: PROPOFOL 200 MG/20 ML VIAL As Ordered (17:03)
[2017-11-12] MEDS ORDERED: MIDAZOLAM INJ 2 MG/2 ML VIAL (J2250) As Ordered (17:04)
[2017-11-12] MEDS ORDERED: fentaNYL 100 MCG/2 ML INJECTION (J3010) As Ordered (17:04)
[2017-11-12] MEDS ORDERED: fentaNYL 100 MCG/2 ML INJECTION (J3010) IV (18:45)
[2017-11-12] MEDS ORDERED: ONDANSETRON 4MG/2ML VIAL (J2405) IV (18:45)
[2017-11-12] MEDS: LISINOPRIL 10 MG TAB PO (20:11)
[2017-11-12] MEDS: FLUTICASONE PROP 0.05% NASAL SPRAY 16 GM (FLONASE) (22:02)
[2017-11-12] MEDS: LORATADINE 10 MG TAB PO (22:02)
[2017-11-13 06:00] LABS: BASO % 0.3 % (0.0-1.0); EOS # 0.5 10^3/uL (0.0-0.50); EOS % 4.6 % (0.0-3.0); IMMATURE GRANULOCYTE # 0.1 10^3/uL (0-0); IMMATURE GRANULOCYTE % 0.5 % (0-0); LYMPH # 1.6 10^3/uL (1.5-4.5); LYMPH % 15.5 % (24.0-44.0); MEAN CORPUSCULAR HEMOGLOBIN 28.6 pg (27.0-33.0); MEAN CORPUSCULAR HGB CONC 33.7 g/dl (32.0-36.5); MEAN CORPUSCULAR VOLUME 84.8 fl (80.0-96.0); MONO # 0.6 10^3/uL (0.0-0.8); MONO % 5.7 % (0.0-5.0); NEUTROPHILS # 7.7 10^3/uL (1.8-7.7); NEUTROPHILS % 73.4 % (36.0-66.0); PLATELET COUNT, AUTOMATED 273 10^3/uL (150-450); RED CELL DISTRIBUTION WIDTH 13.8 % (11.5-14.5); WHITE BLOOD COUNT 10.5 10^3/uL (4.0-10.0)
[2017-11-13] MEDS: SLF 3 ML SYR IV ×3 (06:00→21:09)
[2017-11-13] MEDS: LEVOTHYROXINE 75MCG TABLET (0.075MG) PO (06:00)
[2017-11-13] MEDS: CEPHALEXIN 500 MG CAP PO ×3 (06:19→21:08)
[2017-11-13 06:22] LABS: ANION GAP 6 MEQ/L (8-16); BLOOD UREA NITROGEN 15 MG/DL (7-18); CALCIUM LEVEL 8.8 MG/DL (8.8-10.2); CARBON DIOXIDE LEVEL 25 MEQ/L (21-32); CHLORIDE LEVEL 110 MEQ/L (98-107); CREATININE FOR GFR 0.74 MG/DL (0.55-1.02); GLOMERULAR FILTRATION RATE > 60.0 (>39); GLUCOSE, FASTING 146 MG/DL (83-110); POTASSIUM SERUM 4.7 MEQ/L (3.5-5.1); SODIUM LEVEL 141 MEQ/L (136-145)
[2017-11-13] MEDS: ASPIRIN 81 MG ENTERIC TAB PO (09:12)
[2017-11-13] MEDS: LR 1,000 ML IV (09:12)
[2017-11-13] MEDS: APIXABAN 5 MG TAB (ELIQUIS) PO ×2 (09:13→21:07)
[2017-11-13] MEDS: levETIRAcetam 250MG TABLET (KEPPRA) PO ×2 (09:13→21:08)
[2017-11-13] MEDS: LABETALOL 100 MG TAB PO ×2 (09:13→21:07)
[2017-11-13] MEDS: MAGNESIUM GLUCONATE 500 MG TAB PO (09:13)
[2017-11-13] MEDS: DORZOLAMIDE 2% OPHTH SOLN 10 ML BTL OU ×2 (09:14→21:08)
[2017-11-13] MEDS: HumaLOG INSULIN (NovoLOG) PER UNIT SC ×4 (09:14→20:48)
[2017-11-13] MEDS: NYSTATIN 100,000 UNITS/GM TOPICAL PWD 15 GM TOP ×2 (09:14→21:08)
[2017-11-13] MEDS: LORATADINE 10 MG TAB PO (21:07)
[2017-11-13] MEDS: LISINOPRIL 10 MG TAB PO (21:07)
[2017-11-13] MEDS: FLUTICASONE PROP 0.05% NASAL SPRAY 16 GM (FLONASE) (21:08)
[2017-11-13] MEDS: LATANOPROST 0.005% OPHTH SOLN 2.5 ML OU (21:08)
[2017-11-14] MEDS: CEPHALEXIN 500 MG CAP PO ×3 (05:28→22:42)
[2017-11-14] MEDS: LEVOTHYROXINE 75MCG TABLET (0.075MG) PO (05:29)
[2017-11-14] MEDS: SLF 3 ML SYR IV ×5 (05:29→22:44)
[2017-11-14 06:57] LABS: BASO % 0.4 % (0.0-1.0); EOS # 0.5 10^3/uL (0.0-0.50); EOS % 7.5 % (0.0-3.0); IMMATURE GRANULOCYTE % 0.4 % (0-0); LYMPH # 1.8 10^3/uL (1.5-4.5); MEAN CORPUSCULAR HEMOGLOBIN 28.9 pg (27.0-33.0); MEAN CORPUSCULAR HGB CONC 33.4 g/dl (32.0-36.5); MEAN CORPUSCULAR VOLUME 86.5 fl (80.0-96.0); MONO # 0.6 10^3/uL (0.0-0.8); MONO % 7.9 % (0.0-5.0); NEUTROPHILS # 4.1 10^3/uL (1.8-7.7); NEUTROPHILS % 57.8 % (36.0-66.0); PLATELET COUNT, AUTOMATED 282 10^3/uL (150-450); RED CELL DISTRIBUTION WIDTH 13.5 % (11.5-14.5); WHITE BLOOD COUNT 7.1 10^3/uL (4.0-10.0)
[2017-11-14 07:12] LABS: ANION GAP 7 MEQ/L (8-16); BLOOD UREA NITROGEN 12 MG/DL (7-18); CARBON DIOXIDE LEVEL 27 MEQ/L (21-32); CHLORIDE LEVEL 109 MEQ/L (98-107); CREATININE FOR GFR 0.73 MG/DL (0.55-1.02); GLOMERULAR FILTRATION RATE > 60.0 (>39); GLUCOSE, FASTING 140 MG/DL (83-110); POTASSIUM SERUM 4.3 MEQ/L (3.5-5.1); SODIUM LEVEL 143 MEQ/L (136-145)
[2017-11-14] MEDS: levETIRAcetam 250MG TABLET (KEPPRA) PO ×2 (08:24→22:42)
[2017-11-14] MEDS: APIXABAN 5 MG TAB (ELIQUIS) PO ×2 (08:24→22:42)
[2017-11-14] MEDS: ASPIRIN 81 MG ENTERIC TAB PO (08:24)
[2017-11-14] MEDS: MAGNESIUM GLUCONATE 500 MG TAB PO (08:24)
[2017-11-14] MEDS: HumaLOG INSULIN (NovoLOG) PER UNIT SC ×4 (08:24→22:42)
[2017-11-14] MEDS: NYSTATIN 100,000 UNITS/GM TOPICAL PWD 15 GM TOP ×2 (08:25→22:44)
[2017-11-14] MEDS: LABETALOL 100 MG TAB PO ×2 (08:25→22:42)
[2017-11-14] MEDS: DORZOLAMIDE 2% OPHTH SOLN 10 ML BTL OU ×2 (08:25→22:43)
[2017-11-14] MEDS: LORATADINE 10 MG TAB PO (22:42)
[2017-11-14] MEDS: LISINOPRIL 10 MG TAB PO (22:43)
[2017-11-14] MEDS: FLUTICASONE PROP 0.05% NASAL SPRAY 16 GM (FLONASE) (22:43)
[2017-11-14] MEDS: LATANOPROST 0.005% OPHTH SOLN 2.5 ML OU (22:43)
[2017-11-15] MEDS: SLF 3 ML SYR IV ×4 (05:58→21:47)
[2017-11-15] MEDS: CEPHALEXIN 500 MG CAP PO ×5 (05:59→21:46)
[2017-11-15] MEDS: LEVOTHYROXINE 75MCG TABLET (0.075MG) PO (05:59)
[2017-11-15 06:04] LABS: BASO % 0.6 % (0.0-1.0); EOS # 0.5 10^3/uL (0.0-0.50); IMMATURE GRANULOCYTE % 0.6 % (0-0); LYMPH # 1.6 10^3/uL (1.5-4.5); LYMPH % 24.4 % (24.0-44.0); MEAN CORPUSCULAR HEMOGLOBIN 28.9 pg (27.0-33.0); MEAN CORPUSCULAR HGB CONC 33.1 g/dl (32.0-36.5); MEAN CORPUSCULAR VOLUME 87.4 fl (80.0-96.0); MONO # 0.5 10^3/uL (0.0-0.8); MONO % 7.3 % (0.0-5.0); NEUTROPHILS # 3.9 10^3/uL (1.8-7.7); NEUTROPHILS % 60.1 % (36.0-66.0); PLATELET COUNT, AUTOMATED 299 10^3/uL (150-450); RED CELL DISTRIBUTION WIDTH 13.5 % (11.5-14.5); WHITE BLOOD COUNT 6.4 10^3/uL (4.0-10.0)
[2017-11-15 06:22] LABS: ANION GAP 9 MEQ/L (8-16); BLOOD UREA NITROGEN 15 MG/DL (7-18); CALCIUM LEVEL 8.9 MG/DL (8.8-10.2); CARBON DIOXIDE LEVEL 23 MEQ/L (21-32); CHLORIDE LEVEL 110 MEQ/L (98-107); CREATININE FOR GFR 0.79 MG/DL (0.55-1.02); GLOMERULAR FILTRATION RATE > 60.0 (>39); GLUCOSE, FASTING 149 MG/DL (83-110); POTASSIUM SERUM 4.6 MEQ/L (3.5-5.1); SODIUM LEVEL 142 MEQ/L (136-145)
[2017-11-15] MEDS: HumaLOG INSULIN (NovoLOG) PER UNIT SC ×4 (09:14→21:00)
[2017-11-15] MEDS: MAGNESIUM GLUCONATE 500 MG TAB PO (09:15)
[2017-11-15] MEDS: levETIRAcetam 250MG TABLET (KEPPRA) PO ×2 (09:15→21:46)
[2017-11-15] MEDS: ASPIRIN 81 MG ENTERIC TAB PO (09:15)
[2017-11-15] MEDS: APIXABAN 5 MG TAB (ELIQUIS) PO ×2 (09:15→21:46)
[2017-11-15] MEDS: LABETALOL 100 MG TAB PO ×2 (09:15→21:46)
[2017-11-15] MEDS: DORZOLAMIDE 2% OPHTH SOLN 10 ML BTL OU ×2 (09:16→21:45)
[2017-11-15] MEDS: NYSTATIN 100,000 UNITS/GM TOPICAL PWD 15 GM TOP ×2 (09:16→21:45)
[2017-11-15] MEDS: FLUTICASONE PROP 0.05% NASAL SPRAY 16 GM (FLONASE) (21:45)
[2017-11-15] MEDS: LATANOPROST 0.005% OPHTH SOLN 2.5 ML OU (21:45)
[2017-11-15] MEDS: LISINOPRIL 10 MG TAB PO (21:46)
[2017-11-15] MEDS: LORATADINE 10 MG TAB PO (21:46)
[2017-11-16] MEDS: LEVOTHYROXINE 75MCG TABLET (0.075MG) PO (06:04)
[2017-11-16] MEDS: CEPHALEXIN 500 MG CAP PO ×2 (06:04→12:44)
[2017-11-16] MEDS: SLF 3 ML SYR IV ×3 (06:04→20:53)
[2017-11-16 06:27] LABS: BASO % 0.6 % (0.0-1.0); EOS # 0.5 10^3/uL (0.0-0.50); EOS % 7.4 % (0.0-3.0); IMMATURE GRANULOCYTE % 0.6 % (0-0); LYMPH # 1.9 10^3/uL (1.5-4.5); LYMPH % 26.9 % (24.0-44.0); MEAN CORPUSCULAR HEMOGLOBIN 28.7 pg (27.0-33.0); MEAN CORPUSCULAR HGB CONC 33.4 g/dl (32.0-36.5); MEAN CORPUSCULAR VOLUME 85.9 fl (80.0-96.0); MONO # 0.5 10^3/uL (0.0-0.8); MONO % 7.7 % (0.0-5.0); NEUTROPHILS % 56.8 % (36.0-66.0); PLATELET COUNT, AUTOMATED 286 10^3/uL (150-450); RED CELL DISTRIBUTION WIDTH 13.5 % (11.5-14.5)
[2017-11-16 06:46] LABS: ANION GAP 8 MEQ/L (8-16); BLOOD UREA NITROGEN 14 MG/DL (7-18); CARBON DIOXIDE LEVEL 25 MEQ/L (21-32); CHLORIDE LEVEL 109 MEQ/L (98-107); CREATININE FOR GFR 0.71 MG/DL (0.55-1.02); GLOMERULAR FILTRATION RATE > 60.0 (>39); GLUCOSE, FASTING 135 MG/DL (83-110); POTASSIUM SERUM 4.5 MEQ/L (3.5-5.1); SODIUM LEVEL 142 MEQ/L (136-145)
[2017-11-16] MEDS: HumaLOG INSULIN (NovoLOG) PER UNIT SC ×4 (08:52→20:40)
[2017-11-16] MEDS: ASPIRIN 81 MG ENTERIC TAB PO (08:52)
[2017-11-16] MEDS: MAGNESIUM GLUCONATE 500 MG TAB PO (08:52)
[2017-11-16] MEDS: levETIRAcetam 250MG TABLET (KEPPRA) PO ×2 (08:53→20:51)
[2017-11-16] MEDS: NYSTATIN 100,000 UNITS/GM TOPICAL PWD 15 GM TOP ×2 (08:53→20:53)
[2017-11-16] MEDS: APIXABAN 5 MG TAB (ELIQUIS) PO ×2 (08:53→20:52)
[2017-11-16] MEDS: LABETALOL 100 MG TAB PO ×2 (08:54→20:52)
[2017-11-16] MEDS: DORZOLAMIDE 2% OPHTH SOLN 10 ML BTL OU ×2 (08:54→20:53)
[2017-11-16] MEDS: LORATADINE 10 MG TAB PO (20:51)
[2017-11-16] MEDS: LISINOPRIL 10 MG TAB PO (20:51)
[2017-11-16] MEDS: FLUTICASONE PROP 0.05% NASAL SPRAY 16 GM (FLONASE) (20:52)
[2017-11-16] MEDS: LATANOPROST 0.005% OPHTH SOLN 2.5 ML OU (20:53)
[2017-11-17] MEDS: LEVOTHYROXINE 75MCG TABLET (0.075MG) PO (05:32)
[2017-11-17] MEDS: HumaLOG INSULIN (NovoLOG) PER UNIT SC ×4 (09:53→20:52)
[2017-11-17] MEDS: MAGNESIUM GLUCONATE 500 MG TAB PO (09:53)
[2017-11-17] MEDS: LABETALOL 100 MG TAB PO ×2 (09:54→20:03)
[2017-11-17] MEDS: levETIRAcetam 250MG TABLET (KEPPRA) PO ×2 (09:54→20:02)
[2017-11-17] MEDS: APIXABAN 5 MG TAB (ELIQUIS) PO ×2 (09:58→20:02)
[2017-11-17] MEDS: ASPIRIN 81 MG ENTERIC TAB PO (09:58)
[2017-11-17] MEDS: DORZOLAMIDE 2% OPHTH SOLN 10 ML BTL OU ×2 (09:58→20:02)
[2017-11-17] MEDS: NYSTATIN 100,000 UNITS/GM TOPICAL PWD 15 GM TOP ×2 (09:59→20:02)
[2017-11-17] MEDS: FLUTICASONE PROP 0.05% NASAL SPRAY 16 GM (FLONASE) (20:02)
[2017-11-17] MEDS: LATANOPROST 0.005% OPHTH SOLN 2.5 ML OU (20:02)
[2017-11-17] MEDS: LORATADINE 10 MG TAB PO (20:02)
[2017-11-17] MEDS: LISINOPRIL 10 MG TAB PO (20:03)
[2017-11-18] MEDS: LEVOTHYROXINE 75MCG TABLET (0.075MG) PO (05:35)
[2017-11-18] MEDS: HumaLOG INSULIN (NovoLOG) PER UNIT SC (07:30)
[2017-11-18] MEDS: NYSTATIN 100,000 UNITS/GM TOPICAL PWD 15 GM TOP ×2 (09:00→19:42)
[2017-11-18] MEDS: APIXABAN 5 MG TAB (ELIQUIS) PO ×2 (09:00→19:42)
[2017-11-18] MEDS: levETIRAcetam 250MG TABLET (KEPPRA) PO ×2 (09:00→19:41)
[2017-11-18] MEDS: DORZOLAMIDE 2% OPHTH SOLN 10 ML BTL OU ×2 (09:00→19:42)
[2017-11-18] MEDS: LABETALOL 100 MG TAB PO ×2 (09:00→19:40)
[2017-11-18] MEDS: ASPIRIN 81 MG ENTERIC TAB PO (09:00)
[2017-11-18] MEDS: MAGNESIUM GLUCONATE 500 MG TAB PO (09:00)
[2017-11-18] MEDS: metFORMIN (GLUCOPHAGE) 1000 MG TABLET PO (18:37)
[2017-11-18] MEDS: LORATADINE 10 MG TAB PO (19:40)
[2017-11-18] MEDS: LISINOPRIL 10 MG TAB PO (19:41)
[2017-11-18] MEDS: FLUTICASONE PROP 0.05% NASAL SPRAY 16 GM (FLONASE) (19:41)
[2017-11-18] MEDS: LATANOPROST 0.005% OPHTH SOLN 2.5 ML OU (19:42)
[2017-11-19] MEDS: LEVOTHYROXINE 75MCG TABLET (0.075MG) PO (05:39)
[2017-11-19 07:07] LABS: MEAN CORPUSCULAR HEMOGLOBIN 28.7 pg (27.0-33.0); MEAN CORPUSCULAR HGB CONC 33.5 g/dl (32.0-36.5); MEAN CORPUSCULAR VOLUME 85.6 fl (80.0-96.0); PLATELET COUNT, AUTOMATED 280 10^3/uL (150-450); RED CELL DISTRIBUTION WIDTH 13.3 % (11.5-14.5); WHITE BLOOD COUNT 12.9 10^3/uL (4.0-10.0)
[2017-11-19 07:31] LABS: ALBUMIN 3.4 GM/DL (3.2-5.2); ALBUMIN/GLOBULIN RATIO 0.85 (1.00-1.93); ALKALINE PHOSPHATASE 91 U/L (45-117); ALT/SGPT 59 U/L (12-78); ANION GAP 6 MEQ/L (8-16); AST/SGOT 35 U/L (7-37); BILIRUBIN,TOTAL 0.7 MG/DL (0.2-1.0); BLOOD UREA NITROGEN 13 MG/DL (7-18); CARBON DIOXIDE LEVEL 26 MEQ/L (21-32); CHLORIDE LEVEL 110 MEQ/L (98-107); CREATININE FOR GFR 0.88 MG/DL (0.55-1.02); GLOMERULAR FILTRATION RATE > 60.0 (>39); GLUCOSE, FASTING 173 MG/DL (83-110); POTASSIUM SERUM 4.5 MEQ/L (3.5-5.1); SODIUM LEVEL 142 MEQ/L (136-145); TOTAL PROTEIN 7.4 GM/DL (6.4-8.2)
[2017-11-19] MEDS: NYSTATIN 100,000 UNITS/GM TOPICAL PWD 15 GM TOP ×2 (08:37→21:54)
[2017-11-19] MEDS: MAGNESIUM GLUCONATE 500 MG TAB PO (08:37)
[2017-11-19] MEDS: levETIRAcetam 250MG TABLET (KEPPRA) PO ×2 (08:37→21:55)
[2017-11-19] MEDS: metFORMIN (GLUCOPHAGE) 1000 MG TABLET PO ×2 (08:37→17:24)
[2017-11-19] MEDS: LABETALOL 100 MG TAB PO ×2 (08:37→22:11)
[2017-11-19] MEDS: ASPIRIN 81 MG ENTERIC TAB PO (08:37)
[2017-11-19] MEDS: APIXABAN 5 MG TAB (ELIQUIS) PO ×2 (08:37→21:55)
[2017-11-19] MEDS: DORZOLAMIDE 2% OPHTH SOLN 10 ML BTL OU ×2 (08:38→21:53)
[2017-11-19] MEDS: SODIUM CHLORIDE NASAL 0.65% SPRAY BTL (OCEAN) (21:54)
[2017-11-19] MEDS: FLUTICASONE PROP 0.05% NASAL SPRAY 16 GM (FLONASE) (21:54)
[2017-11-19] MEDS: LORATADINE 10 MG TAB PO (21:54)
[2017-11-19] MEDS: LATANOPROST 0.005% OPHTH SOLN 2.5 ML OU (21:54)
[2017-11-19] MEDS: LISINOPRIL 10 MG TAB PO (22:11)
[2017-11-20] MEDS: LEVOTHYROXINE 75MCG TABLET (0.075MG) PO (05:48)
[2017-11-20] MEDS: MAGNESIUM GLUCONATE 500 MG TAB PO (08:52)
[2017-11-20] MEDS: APIXABAN 5 MG TAB (ELIQUIS) PO ×2 (08:53→21:58)
[2017-11-20] MEDS: DORZOLAMIDE 2% OPHTH SOLN 10 ML BTL OU ×2 (08:53→21:59)
[2017-11-20] MEDS: LABETALOL 100 MG TAB PO ×2 (08:53→21:58)
[2017-11-20] MEDS: ASPIRIN 81 MG ENTERIC TAB PO (08:53)
[2017-11-20] MEDS: levETIRAcetam 250MG TABLET (KEPPRA) PO ×2 (08:53→21:58)
[2017-11-20] MEDS: metFORMIN (GLUCOPHAGE) 1000 MG TABLET PO ×2 (08:53→17:12)
[2017-11-20] MEDS: NYSTATIN 100,000 UNITS/GM TOPICAL PWD 15 GM TOP ×2 (08:53→21:59)
[2017-11-20 12:46] LABS: RENAL EPITHELIAL CELLS 3 /HPF
[2017-11-20] MEDS: LevoFLOXacin 250 MG TABLET PO (17:12)
[2017-11-20] MEDS: LISINOPRIL 10 MG TAB PO (21:58)
[2017-11-20] MEDS: LORATADINE 10 MG TAB PO (21:58)
[2017-11-20] MEDS: FLUTICASONE PROP 0.05% NASAL SPRAY 16 GM (FLONASE) (21:59)
[2017-11-20] MEDS: LATANOPROST 0.005% OPHTH SOLN 2.5 ML OU (21:59)
[2017-11-21] MEDS: LEVOTHYROXINE 75MCG TABLET (0.075MG) PO (05:26)
[2017-11-21] MEDS: levETIRAcetam 250MG TABLET (KEPPRA) PO ×2 (08:55→20:30)
[2017-11-21] MEDS: MAGNESIUM GLUCONATE 500 MG TAB PO (08:55)
[2017-11-21] MEDS: ASPIRIN 81 MG ENTERIC TAB PO (08:55)
[2017-11-21] MEDS: LevoFLOXacin 250 MG TABLET PO (08:55)
[2017-11-21] MEDS: metFORMIN (GLUCOPHAGE) 1000 MG TABLET PO ×2 (08:55→17:05)
[2017-11-21] MEDS: DORZOLAMIDE 2% OPHTH SOLN 10 ML BTL OU ×2 (08:56→20:31)
[2017-11-21] MEDS: APIXABAN 5 MG TAB (ELIQUIS) PO ×2 (08:56→20:30)
[2017-11-21] MEDS: LABETALOL 100 MG TAB PO ×2 (08:56→20:47)
[2017-11-21] MEDS: NYSTATIN 100,000 UNITS/GM TOPICAL PWD 15 GM TOP ×2 (08:56→20:32)
[2017-11-21] MEDS: LATANOPROST 0.005% OPHTH SOLN 2.5 ML OU (20:31)
[2017-11-21] MEDS: LORATADINE 10 MG TAB PO (20:31)
[2017-11-21] MEDS: FLUTICASONE PROP 0.05% NASAL SPRAY 16 GM (FLONASE) (20:31)
[2017-11-21] MEDS: LISINOPRIL 10 MG TAB PO (20:48)
[2017-11-22] MEDS: LEVOTHYROXINE 75MCG TABLET (0.075MG) PO (05:41)
[2017-11-22 08:16] LABS: MEAN CORPUSCULAR HGB CONC 33.7 g/dl (32.0-36.5); PLATELET COUNT, AUTOMATED 272 10^3/uL (150-450); RED CELL DISTRIBUTION WIDTH 13.6 % (11.5-14.5); WHITE BLOOD COUNT 7.7 10^3/uL (4.0-10.0)
[2017-11-22 08:36] LABS: ANION GAP 7 MEQ/L (8-16); BLOOD UREA NITROGEN 17 MG/DL (7-18); CALCIUM LEVEL 9.2 MG/DL (8.8-10.2); CARBON DIOXIDE LEVEL 27 MEQ/L (21-32); CHLORIDE LEVEL 106 MEQ/L (98-107); CREATININE FOR GFR 0.86 MG/DL (0.55-1.02); GLOMERULAR FILTRATION RATE > 60.0 (>39); GLUCOSE, FASTING 210 MG/DL (83-110); POTASSIUM SERUM 4.6 MEQ/L (3.5-5.1); SODIUM LEVEL 140 MEQ/L (136-145)
[2017-11-22] MEDS: ASPIRIN 81 MG ENTERIC TAB PO (08:41)
[2017-11-22] MEDS: MAGNESIUM GLUCONATE 500 MG TAB PO (08:41)
[2017-11-22] MEDS: levETIRAcetam 250MG TABLET (KEPPRA) PO (08:41)
[2017-11-22] MEDS: APIXABAN 5 MG TAB (ELIQUIS) PO (08:41)
[2017-11-22] MEDS: LevoFLOXacin 250 MG TABLET PO (08:41)
[2017-11-22] MEDS: metFORMIN (GLUCOPHAGE) 1000 MG TABLET PO (08:41)
[2017-11-22] MEDS: NYSTATIN 100,000 UNITS/GM TOPICAL PWD 15 GM TOP (08:42)
[2017-11-22] MEDS: DORZOLAMIDE 2% OPHTH SOLN 10 ML BTL OU (08:42)
[2017-11-22] MEDS: LABETALOL 100 MG TAB PO (08:42)
== END 2017-11-22 13:15 | DRG 45 ==
LOC: M PCU 11-07 05:33 → M MS5PR 11-15 16:10 → M ED 11:12 → M PCU 11-08 11:22 → M ED INP 15:33
PROC: B24BZZ4 Ultrasonography of Heart with Aorta, Transesophageal (ICD-10-PCS; principal; 2017-11-12 07:30)
DX: I63.9 Cerebral infarction, unspecified (principal); G93.40 Encephalopathy, unspecified; N39.0 Urinary tract infection, site not specified; B96.1 Klebsiella pneumoniae [K. pneumoniae] as the cause of diseases classified elsewhere; E83.42 Hypomagnesemia; E11.9 Type 2 diabetes mellitus without complications; B96.20 Unspecified Escherichia coli [E. coli] as the cause of diseases classified elsewhere; I10 Essential (primary) hypertension; E03.9 Hypothyroidism, unspecified; E78.5 Hyperlipidemia, unspecified; R39.15 Urgency of urination; K59.09 Other constipation; Z90.12 Acquired absence of left breast and nipple; Z90.710 Acquired absence of both cervix and uterus; Z85.42 Personal history of malignant neoplasm of other parts of uterus; Z88.8 Allergy status to other drugs, medicaments and biological substances; Z79.84 Long term (current) use of oral hypoglycemic drugs; Z79.899 Other long term (current) drug therapy

== ENCOUNTER → 2017-11-28 | Outpatient (REF) | payer OTHER | LOC: M SFHCPLAZ 11:59 | DX: E11.65 Type 2 diabetes mellitus with hyperglycemia (principal); R32 Unspecified urinary incontinence ==

== ENCOUNTER → 2017-12-21 | Outpatient (CLI) | payer OTHER ==
[2017-12-21 14:15] LABS: APPEARANCE, URINE CLEAR (CLEAR); BACTERIA, URINE AUTO 1+ (NEGATIVE); BILIRUBIN, URINE AUTO NEGATIVE (NEGATIVE); BLOOD, URINE BLOOD NEGATIVE (NEGATIVE); COLOR, URINE YELLOW (YELLOW); GLUCOSE, URINE (UA) AUTO NEGATIVE (NEGATIVE); KETONE, URINE AUTO NEGATIVE (NEGATIVE); LEUKOCYTE ESTERASE, URINE AUTO TRACE (NEGATIVE); NITRITE, URINE AUTO NEGATIVE (NEGATIVE); PROTEIN, URINE AUTO NEGATIVE (NEGATIVE); RBC, URINE AUTO 0 /HPF (0-3); SPECIFIC GRAVITY URINE AUTO 1.006 (1.002-1.035); SQUAMOUS EPITHELIAL CELL UR AU 0 /HPF (0-6); UROBILINOGEN, URINE AUTO 0.2 mg/dL (0.0-2.0); WBC, URINE AUTO 1 /HPF (0-3)
[2017-12-21 14:16] LABS: BASO # 0.1 10^3/uL (0.0-0.2); BASO % 0.6 % (0.0-1.0); EOS # 0.4 10^3/uL (0.0-0.50); EOS % 4.9 % (0.0-3.0); HEMATOCRIT 38.6 % (36.0-47.0); HEMOGLOBIN 12.5 g/dl (12.0-16.0); IMMATURE GRANULOCYTE % 0.3 % (0-0); LYMPH % 21.9 % (24.0-44.0); MEAN CORPUSCULAR HEMOGLOBIN 28.9 pg (27.0-33.0); MEAN CORPUSCULAR HGB CONC 32.4 g/dl (32.0-36.5); MEAN CORPUSCULAR VOLUME 89.4 fl (80.0-96.0); MONO # 0.6 10^3/uL (0.0-0.8); NEUTROPHILS # 5.9 10^3/uL (1.8-7.7); NEUTROPHILS % 65.3 % (36.0-66.0); PLATELET COUNT, AUTOMATED 268 10^3/uL (150-450); RED BLOOD COUNT 4.32 10^6/uL (4.00-5.40); RED CELL DISTRIBUTION WIDTH 13.8 % (11.5-14.5)
[2017-12-21 14:43] LABS: ALBUMIN 3.9 GM/DL (3.2-5.2); ALBUMIN/GLOBULIN RATIO 1.18 (1.00-1.93); ALKALINE PHOSPHATASE 88 U/L (45-117); ALT/SGPT 24 U/L (12-78); ANION GAP 8 MEQ/L (8-16); AST/SGOT 18 U/L (7-37); BILIRUBIN,TOTAL 0.6 MG/DL (0.2-1.0); BLOOD UREA NITROGEN 14 MG/DL (7-18); CALCIUM LEVEL 9.2 MG/DL (8.8-10.2); CARBON DIOXIDE LEVEL 25 MEQ/L (21-32); CHLORIDE LEVEL 111 MEQ/L (98-107); CREATININE FOR GFR 0.86 MG/DL (0.55-1.02); FREE T4 1.29 NG/DL (0.76-1.46); GLOMERULAR FILTRATION RATE > 60.0 (>39); GLUCOSE, FASTING 119 MG/DL (70-100); SODIUM LEVEL 144 MEQ/L (136-145); TOTAL PROTEIN 7.2 GM/DL (6.4-8.2)
== END ==
LOC: M WUC 10:26
DX: E11.65 Type 2 diabetes mellitus with hyperglycemia (principal); E03.9 Hypothyroidism, unspecified
CPT/HCPCS: 84443

== ENCOUNTER 2018-01-31 16:50 | Observation (INO) | payer OTHER, MEDICAID ==
[2018-01-31 18:25] LABS: BASO % 0.4 % (0.0-1.0); EOS # 0.2 10^3/uL (0.0-0.50); EOS % 2.8 % (0.0-3.0); HEMATOCRIT 34.5 % (36.0-47.0); HEMOGLOBIN 11.6 g/dl (12.0-16.0); IMMATURE GRANULOCYTE % 0.4 % (0-3.0); LYMPH # 2.2 10^3/uL (1.5-4.5); LYMPH % 28.1 % (24.0-44.0); MEAN CORPUSCULAR HEMOGLOBIN 28.8 pg (27.0-33.0); MEAN CORPUSCULAR HGB CONC 33.6 g/dl (32.0-36.5); MEAN CORPUSCULAR VOLUME 85.6 fl (80.0-96.0); MONO # 0.5 10^3/uL (0.0-0.8); MONO % 6.8 % (0.0-5.0); NEUTROPHILS # 4.8 10^3/uL (1.8-7.7); NEUTROPHILS % 61.5 % (36.0-66.0); PLATELET COUNT, AUTOMATED 272 10^3/uL (150-450); RED BLOOD COUNT 4.03 10^6/uL (4.00-5.40); RED CELL DISTRIBUTION WIDTH 13.7 % (11.5-14.5); WHITE BLOOD COUNT 7.8 10^3/uL (4.0-10.0)
[2018-01-31 18:51] LABS: INFLUENZA A AMPLIFICATION NEGATIVE (NEGATIVE); INFLUENZA B AMPLIFICATION NEGATIVE (NEGATIVE)
[2018-01-31 18:56] LABS: ALBUMIN 3.9 GM/DL (3.2-5.2); ALBUMIN/GLOBULIN RATIO 1.11 (1.00-1.93); ALKALINE PHOSPHATASE 72 U/L (45-117); ALT/SGPT 24 U/L (12-78); ANION GAP 6 MEQ/L (8-16); AST/SGOT 17 U/L (7-37); BILIRUBIN,DIRECT 0.2 MG/DL (0.0-0.2); BILIRUBIN,TOTAL 0.8 MG/DL (0.2-1.0); BLOOD UREA NITROGEN 15 MG/DL (7-18); CALCIUM LEVEL 8.7 MG/DL (8.8-10.2); CARBON DIOXIDE LEVEL 26 MEQ/L (21-32); CHLORIDE LEVEL 107 MEQ/L (98-107); CPK CREATINE PHOSPHOKINASE 94 U/L (26-192); CREATININE FOR GFR 1.02 MG/DL (0.55-1.30); GLOMERULAR FILTRATION RATE 56.4 (>39); GLUCOSE, FASTING 101 MG/DL (70-100); KETONE, URINE AUTO RFX NEGATIVE (NEGATIVE); LEUKOCYTE ESTERASE UR AUTO RFX NEGATIVE (NEGATIVE); NITRITE, URINE AUTO RFX NEGATIVE (NEGATIVE); POTASSIUM SERUM 4.6 MEQ/L (3.5-5.1); RBC, URINE AUTO RFX 0 /HPF (0-3); SODIUM LEVEL 139 MEQ/L (136-145); SPECIFIC GRAVITY UR AUTO RFX 1.006 (1.002-1.035); SQUAM EPITHELIAL CELL UR AURFX 0 /HPF (0-6); TOTAL PROTEIN 7.4 GM/DL (6.4-8.2); TROPONIN I < 0.02 NG/ML (< 0.10); WBC, URINE AUTO RFX 0 /HPF (0-3)
[2018-01-31 18:58] LABS: LACTIC ACID SEPSIS PROTOCOL 2.6 MMOL/L (0.4-2.0)
[2018-01-31 19:02] LABS: CK-MB VALUE MASS 2.2 NG/ML (0.0-3.6); MB/CK RELATIVE INDEX 2.34 (< OR =4)
[2018-01-31] MEDS: HumaLOG INSULIN (NovoLOG) PER UNIT SC (21:00)
[2018-01-31] MEDS: DORZOLAMIDE 2% OPHTH SOLN 10 ML BTL OU (21:00)
[2018-01-31] MEDS ORDERED: ACETAMINOPHEN TAB 650MG DOSE (2X325MG) PO (21:15)
[2018-02-01 00:30] LABS: BEDSIDE GLUCOSE 106 MG/DL (83-110)
[2018-02-01] MEDS: NS 1,000 ML IV ×2 (00:42→06:13)
[2018-02-01] MEDS: APIXABAN 5 MG TAB (ELIQUIS) PO ×2 (02:12→08:27)
[2018-02-01] MEDS: LISINOPRIL 10 MG TAB PO (02:12)
[2018-02-01] MEDS: LATANOPROST 0.005% OPHTH SOLN 2.5 ML OU (02:12)
[2018-02-01] MEDS: LORATADINE 10 MG TAB PO (02:12)
[2018-02-01] MEDS: FLUTICASONE PROP 0.05% NASAL SPRAY 16 GM (FLONASE) (02:12)
[2018-02-01] MEDS: LEVOTHYROXINE 75MCG TABLET (0.075MG) PO (06:13)
[2018-02-01 07:56] LABS: BEDSIDE GLUCOSE 106 MG/DL (83-110)
[2018-02-01] MEDS: HumaLOG INSULIN (NovoLOG) PER UNIT SC ×3 (08:28→17:04)
[2018-02-01] MEDS: DORZOLAMIDE 2% OPHTH SOLN 10 ML BTL OU (09:00)
[2018-02-01 12:13] LABS: BEDSIDE GLUCOSE 97 MG/DL (83-110)
[2018-02-01] MEDS: MAGNESIUM GLUCONATE 500 MG TAB PO (12:32)
[2018-02-01 16:56] LABS: BEDSIDE GLUCOSE 116 MG/DL (83-110)
[2018-02-01] MEDS: PNEUMOCOCCAL VACCINE 0.5ML SYRINGE(90732) PNEUMOVAX 23 IM (17:29)
[2018-02-03] MEDS ORDERED: VITAMIN D 50,000 UNITS CAPSULE (ERGOCALCIFEROL 1.25MG) PO (09:00)
== END 2018-02-01 17:45 | disposition home or self-care (01) ==
LOC: M ED 16:50 → M ED INP 23:16 → M PCU 23:47
DX: F03.90 Unspecified dementia, unspecified severity, without behavioral disturbance, psychotic disturbance, mood disturbance, and anxiety (principal); E11.9 Type 2 diabetes mellitus without complications; I10 Essential (primary) hypertension; E03.8 Other specified hypothyroidism; E78.4 Other hyperlipidemia; Z86.73 Personal history of transient ischemic attack (TIA), and cerebral infarction without residual deficits; E55.9 Vitamin D deficiency, unspecified; F32.9 Major depressive disorder, single episode, unspecified; Z79.02 Long term (current) use of antithrombotics/antiplatelets; G47.09 Other insomnia; Z79.899 Other long term (current) drug therapy; Z88.8 Allergy status to other drugs, medicaments and biological substances; Z85.42 Personal history of malignant neoplasm of other parts of uterus
CPT/HCPCS: 71045

== ENCOUNTER → 2018-03-03 | Outpatient (REF) | payer OTHER, MEDICAID ==
[2018-03-03 09:53] LABS: MAGNESIUM LEVEL 2.2 MG/DL (1.8-2.4)
[2018-03-03 10:12] LABS: ESTIMATED AVERAGE GLUCOSE 131 MG/DL (60-110); HEMOGLOBIN A1c 6.2 %
== END ==
LOC: SKLAB8 08:00
DX: E11.9 Type 2 diabetes mellitus without complications (principal)
CPT/HCPCS: 83735

== ENCOUNTER → 2018-03-17 | Outpatient (REF) | payer MEDICARE, MEDICAID, OTHER ==
[2018-03-17 13:59] LABS: ANION GAP 8 MEQ/L (8-16); BLOOD UREA NITROGEN 18 MG/DL (7-18); CALCIUM LEVEL 9.4 MG/DL (8.8-10.2); CARBON DIOXIDE LEVEL 24 MEQ/L (21-32); CHLORIDE LEVEL 103 MEQ/L (98-107); CREATININE FOR GFR 1.16 MG/DL (0.55-1.30); GLOMERULAR FILTRATION RATE 48.6 (>39); GLUCOSE, FASTING 114 MG/DL (70-100); MAGNESIUM LEVEL 2.2 MG/DL (1.8-2.4); SODIUM LEVEL 135 MEQ/L (136-145)
[2018-03-17 14:03] LABS: POTASSIUM SERUM 5.7 MEQ/L (3.5-5.1)
[2018-03-18 09:09] LABS: ANION GAP 7 MEQ/L (8-16); BLOOD UREA NITROGEN 12 MG/DL (7-18); CALCIUM LEVEL 8.8 MG/DL (8.8-10.2); CARBON DIOXIDE LEVEL 26 MEQ/L (21-32); CHLORIDE LEVEL 105 MEQ/L (98-107); CREATININE FOR GFR 0.95 MG/DL (0.55-1.30); GLOMERULAR FILTRATION RATE > 60.0 (>39); GLUCOSE, FASTING 87 MG/DL (70-100); POTASSIUM SERUM 4.3 MEQ/L (3.5-5.1); SODIUM LEVEL 138 MEQ/L (136-145)
== END ==
LOC: SKLAB8 08:00
DX: I10 Essential (primary) hypertension (principal); E11.9 Type 2 diabetes mellitus without complications
CPT/HCPCS: 83735

== ENCOUNTER → 2018-04-09 | Outpatient (CLI) | payer MEDICAID, OTHER | LOC: M RAD 13:18 | DX: S09.90XA Unspecified injury of head, initial encounter (principal); W19.XXXA Unspecified fall, initial encounter; Y92.129 Unspecified place in nursing home as the place of occurrence of the external cause; Z86.73 Personal history of transient ischemic attack (TIA), and cerebral infarction without residual deficits; I67.82 Cerebral ischemia | CPT/HCPCS: 70450 ==

== ENCOUNTER 2018-05-16 17:15 | Emergency (ER) | payer MEDICAID ==
[2018-05-16 18:33] LABS: INR 1.19; PROTHROMBIN TIME 15.3 SECONDS (12.4-14.5)
[2018-05-16 18:56] LABS: BASO % 0.2 % (0.0-1.0); EOS # 0.1 10^3/uL (0.0-0.50); EOS % 0.3 % (0.0-3.0); HEMOGLOBIN 12.3 g/dl (12.0-15.5); IMMATURE GRANULOCYTE % 0.7 % (0-3.0); LYMPH # 0.8 10^3/uL (1.5-4.5); MEAN CORPUSCULAR HEMOGLOBIN 28.2 pg (27.0-33.0); MEAN CORPUSCULAR HGB CONC 33.2 g/dl (32.0-36.5); MEAN CORPUSCULAR VOLUME 84.9 fl (80.0-96.0); MONO # 0.6 10^3/uL (0.0-0.8); MONO % 3.3 % (0.0-5.0); NEUTROPHILS # 17.4 10^3/uL (1.8-7.7); NEUTROPHILS % 91.5 % (36.0-66.0); PLATELET COUNT, AUTOMATED 229 10^3/uL (150-450); RED BLOOD COUNT 4.36 10^6/uL (4.00-5.40); RED CELL DISTRIBUTION WIDTH 13.2 % (11.5-14.5); WHITE BLOOD COUNT 19.1 10^3/uL (4.0-10.0)
[2018-05-16 19:00] LABS: ALBUMIN 3.6 GM/DL (3.2-5.2); ALKALINE PHOSPHATASE 91 U/L (45-117); ALT/SGPT 23 U/L (12-78); ANION GAP 11 MEQ/L (8-16); AST/SGOT 28 U/L (7-37); BILIRUBIN,DIRECT 0.2 MG/DL (0.0-0.2); BILIRUBIN,TOTAL 1.3 MG/DL (0.2-1.0); BLOOD UREA NITROGEN 15 MG/DL (7-18); CALCIUM LEVEL 8.8 MG/DL (8.8-10.2); CARBON DIOXIDE LEVEL 24 MEQ/L (21-32); CHLORIDE LEVEL 104 MEQ/L (98-107); CPK CREATINE PHOSPHOKINASE 81 U/L (26-192); CREATININE FOR GFR 1.16 MG/DL (0.55-1.30); GLOMERULAR FILTRATION RATE 48.6 (>39); GLUCOSE, FASTING 120 MG/DL (70-100); LIPASE 102 U/L (73-393); POTASSIUM SERUM 4.9 MEQ/L (3.5-5.1); SODIUM LEVEL 139 MEQ/L (136-145); TOTAL PROTEIN 7.6 GM/DL (6.4-8.2); TROPONIN I < 0.02 NG/ML (< 0.10)
[2018-05-16 19:05] LABS: CK-MB VALUE MASS < 1.0 NG/ML (<3.6); MB/CK RELATIVE INDEX 1.23 (< OR =4); NT-PRO BNP 2007 PG/ML (<125); THYROID STIMULATING HORMONE 0.554 uIU/ML (0.358-3.740)
[2018-05-16 19:21] LABS: POS COUNT POS FLAG
[2018-05-16 20:17] LABS: LACTIC ACID SEPSIS PROTOCOL 1.6 MMOL/L (0.4-2.0)
[2018-05-16 20:26] LABS: CK-MB VALUE MASS < 1.0 NG/ML (<3.6); CPK CREATINE PHOSPHOKINASE 45 U/L (26-192); MB/CK RELATIVE INDEX 2.22 (< OR =4); TROPONIN I < 0.02 NG/ML (< 0.10)
[2018-05-16 20:37] LABS: KETONE, URINE AUTO RFX NEGATIVE (NEGATIVE); RBC, URINE AUTO RFX 2 /HPF (0-3); SPECIFIC GRAVITY UR AUTO RFX 1.008 (1.002-1.035); SQUAM EPITHELIAL CELL UR AURFX 1 /HPF (0-6)
[2018-05-16 20:43] LABS: LEUKOCYTE ESTERASE UR AUTO RFX 3+ (NEGATIVE); NITRITE, URINE AUTO RFX POSITIVE (NEGATIVE); WBC, URINE AUTO RFX 71 /HPF (0-3)
[2018-05-16] MEDS: NITROFURANTOIN (MACROBID) 100 MG CAP PO (22:03)
== END 2018-05-16 22:28 | disposition home or self-care (01) ==
LOC: M ED 17:15
DX: N39.0 Urinary tract infection, site not specified (principal); E11.9 Type 2 diabetes mellitus without complications; I10 Essential (primary) hypertension; E78.5 Hyperlipidemia, unspecified; Z86.73 Personal history of transient ischemic attack (TIA), and cerebral infarction without residual deficits; F03.90 Unspecified dementia, unspecified severity, without behavioral disturbance, psychotic disturbance, mood disturbance, and anxiety; Z85.3 Personal history of malignant neoplasm of breast; Z90.10 Acquired absence of unspecified breast and nipple; Z79.82 Long term (current) use of aspirin; Z79.84 Long term (current) use of oral hypoglycemic drugs; Z79.899 Other long term (current) drug therapy; Z88.8 Allergy status to other drugs, medicaments and biological substances
CPT/HCPCS: 71045

== ENCOUNTER → 2018-05-20 | Outpatient (REF) | payer MEDICAID | LOC: SKLAB3 07:14 | DX: N39.0 Urinary tract infection, site not specified (principal) ==

== ENCOUNTER → 2018-06-26 | Outpatient (REF) | payer MEDICAID ==
[2018-06-29 10:08] LABS: QUANTIFERON GOLD TB Negative (Negative); TB Test (QFT) Antigen 0.09 IU/mL (.); TB Test (QFT) Antigen Minus Ni <0.01 IU/mL (.); TB Test (QFT) Nil 0.11 IU/mL (.)
== END ==
LOC: SKLAB3 08:00
DX: Z11.1 Encounter for screening for respiratory tuberculosis (principal); F03.90 Unspecified dementia, unspecified severity, without behavioral disturbance, psychotic disturbance, mood disturbance, and anxiety
CPT/HCPCS: 36415

== ENCOUNTER → 2018-06-28 | Outpatient (REF) | payer MEDICAID ==
[2018-06-28 14:11] LABS: CHLAMYDIA DNA AMPLIFICATION NEGATIVE (NEGATIVE); GC DNA AMPLIFICATION NEGATIVE (NEGATIVE)
== END ==
LOC: SKLAB3 11:30
DX: Z02.9 Encounter for administrative examinations, unspecified (principal)
CPT/HCPCS: 87591

== ENCOUNTER → 2018-07-27 | Outpatient (REF) ==
[2018-07-27 10:13] LABS: APPEARANCE, URINE CLEAR (CLEAR); BACTERIA, URINE AUTO 2+ (NEGATIVE); BILIRUBIN, URINE AUTO NEGATIVE (NEGATIVE); BLOOD, URINE BLOOD NEGATIVE (NEGATIVE); COLOR, URINE STRAW (YELLOW); GLUCOSE, URINE (UA) AUTO NEGATIVE (NEGATIVE); KETONE, URINE AUTO NEGATIVE (NEGATIVE); LEUKOCYTE ESTERASE, URINE AUTO TRACE (NEGATIVE); NITRITE, URINE AUTO NEGATIVE (NEGATIVE); PROTEIN, URINE AUTO NEGATIVE (NEGATIVE); RBC, URINE AUTO 1 /HPF (0-3); SPECIFIC GRAVITY URINE AUTO 1.008 (1.002-1.035); SQUAMOUS EPITHELIAL CELL UR AU 0 /HPF (0-6); UROBILINOGEN, URINE AUTO 0.2 mg/dL (0.0-2.0); WBC, URINE AUTO 8 /HPF (0-3)
== END ==
LOC: SKLAB3 08:35
DX: R30.0 Dysuria (principal)

== ENCOUNTER → 2018-07-29 | Outpatient (REF) | payer MEDICAID ==
[2018-07-29 12:44] LABS: HEMATOCRIT 32.8 % (36.0-47.0); HEMOGLOBIN 11.1 g/dl (12.0-15.5); MEAN CORPUSCULAR HGB CONC 33.8 g/dl (32.0-36.5); MEAN CORPUSCULAR VOLUME 85.6 fl (80.0-96.0); PLATELET COUNT, AUTOMATED 308 10^3/uL (150-450); RED BLOOD COUNT 3.83 10^6/uL (4.00-5.40); RED CELL DISTRIBUTION WIDTH 14.5 % (11.5-14.5); WHITE BLOOD COUNT 7.3 10^3/uL (4.0-10.0)
[2018-07-29 15:36] LABS: ANION GAP 8 MEQ/L (8-16); BLOOD UREA NITROGEN 13 MG/DL (7-18); CALCIUM LEVEL 9.3 MG/DL (8.8-10.2); CARBON DIOXIDE LEVEL 25 MEQ/L (21-32); CHLORIDE LEVEL 105 MEQ/L (98-107); CREATININE FOR GFR 0.75 MG/DL (0.55-1.30); GLOMERULAR FILTRATION RATE > 60.0 (>39); GLUCOSE, FASTING 77 MG/DL (70-100); NT-PRO BNP 769 PG/ML (<450); POTASSIUM SERUM 4.9 MEQ/L (3.5-5.1); SODIUM LEVEL 138 MEQ/L (136-145)
== END ==
LOC: SKLAB3 11:37
DX: R60.9 Edema, unspecified (principal)
CPT/HCPCS: 84443

== ENCOUNTER → 2018-08-20 | Outpatient (REF) | payer MEDICAID | LOC: SKLAB3 13:31 | DX: M25.572 Pain in left ankle and joints of left foot (principal) | CPT/HCPCS: 73630 ==

== ENCOUNTER → 2018-09-08 | Outpatient (REF) | payer MEDICAID ==
[2018-09-08 08:54] LABS: ESTIMATED AVERAGE GLUCOSE 134 MG/DL (60-110); HEMOGLOBIN A1c 6.3 %
== END ==
LOC: SKLAB3 07:00
DX: E11.9 Type 2 diabetes mellitus without complications (principal)
CPT/HCPCS: 83036

== ENCOUNTER → 2018-10-16 | Outpatient (REF) | payer MEDICAID | LOC: M LAB 15:34 → SKLAB3 15:34 | DX: R30.0 Dysuria (principal) | CPT/HCPCS: 87186 ==

== ENCOUNTER → 2018-11-12 | Outpatient (REF) | payer MEDICAID | LOC: SKLAB7 14:34 | DX: R10.9 Unspecified abdominal pain (principal) | CPT/HCPCS: 87186 ==

== ENCOUNTER → 2018-11-13 | Outpatient (REF) | payer MEDICAID ==
[~2018-11-13] MED LIST changes: +ACE65ERTAB PO; +ACET1TAB55 PO; +AMLO25TA PO; +ASPI-222 PO; +ASPI325T PO; +ASPI81TAEC PO; +CALC600T31 PO; -DRIS50002 PO; +DRIS50003 PO; +DULC10SU2 PR; +ENEMENE16 PR; +FLUTISP; +GABA-1171 PO; +GABA-843 PO; +GLIP-163 PO; +KEPP250T5 PO; +KLOR10TA76 PO; +LABE10TAB PO; +LEVA250T13 PO; +LORA-243; -LORA10TA2; +MACR100C43 PO; +METO1TAB32 PO; +MILK12002 PO; +ONDA4TAB6 PO; -POTA10CA PO; -VITA1CAP40; +VITA50005
[2018-11-13 07:55] LABS: HEMATOCRIT 38.4 % (36.0-47.0); HEMOGLOBIN 12.6 g/dl (12.0-15.5); MEAN CORPUSCULAR HEMOGLOBIN 28.8 pg (27.0-33.0); MEAN CORPUSCULAR HGB CONC 32.8 g/dl (32.0-36.5); MEAN CORPUSCULAR VOLUME 87.7 fl (80.0-96.0); PLATELET COUNT, AUTOMATED 253 10^3/uL (150-450); RED BLOOD COUNT 4.38 10^6/uL (4.00-5.40); WHITE BLOOD COUNT 7.8 10^3/uL (4.0-10.0)
[2018-11-13 08:25] LABS: ALBUMIN 3.7 GM/DL (3.2-5.2); ALT/SGPT 19 U/L (12-78); BILIRUBIN,TOTAL 0.6 MG/DL (0.2-1.0); BLOOD UREA NITROGEN 13 MG/DL (7-18); CALCIUM LEVEL 9.3 MG/DL (8.8-10.2); CARBON DIOXIDE LEVEL 25 MEQ/L (21-32); CHLORIDE LEVEL 104 MEQ/L (98-107); CREATININE FOR GFR 0.94 MG/DL (0.55-1.30); GLOMERULAR FILTRATION RATE > 60.0 (>39); GLUCOSE, FASTING 98 MG/DL (70-100); SODIUM LEVEL 137 MEQ/L (136-145)
== END ==
LOC: SKLAB7 08:00
PROVIDERS: ATTEND Family Medicine
DX: I10 Essential (primary) hypertension (principal); Z79.01 Long term (current) use of anticoagulants

== ENCOUNTER → 2019-01-20 | Outpatient (REF) | payer MEDICAID, OTHER ==
[~2019-01-20] MED LIST changes: -ENEMENE16 PR; +ENEMENE4 PR; +MILK120011 PO; -MILK12002 PO
[2019-01-20 09:42] LABS: APPEARANCE, URINE CLEAR (CLEAR); BACTERIA, URINE AUTO 1+ (NEGATIVE); BILIRUBIN, URINE AUTO NEGATIVE (NEGATIVE); BLOOD, URINE BLOOD NEGATIVE (NEGATIVE); COLOR, URINE YELLOW (YELLOW); GLUCOSE, URINE (UA) AUTO NEGATIVE (NEGATIVE); KETONE, URINE AUTO NEGATIVE (NEGATIVE); LEUKOCYTE ESTERASE, URINE AUTO 3+ (NEGATIVE); NITRITE, URINE AUTO NEGATIVE (NEGATIVE); PROTEIN, URINE AUTO NEGATIVE (NEGATIVE); RBC, URINE AUTO 5 /HPF (0-3); SPECIFIC GRAVITY URINE AUTO 1.003 (1.002-1.035); SQUAMOUS EPITHELIAL CELL UR AU 0 /HPF (0-6); UROBILINOGEN, URINE AUTO 0.2 mg/dL (0.0-2.0); WBC, URINE AUTO 55 /HPF (0-3)
== END ==
LOC: SKLAB7 08:58
PROVIDERS: ATTEND Family Medicine
DX: R30.0 Dysuria (principal)

== ENCOUNTER → 2019-02-12 | Outpatient (REF) | payer MEDICAID, OTHER ==
[2019-02-12 08:04] LABS: HEMATOCRIT 34.2 % (36.0-47.0); HEMOGLOBIN 11.3 g/dl (12.0-15.5); MEAN CORPUSCULAR HEMOGLOBIN 28.5 pg (27.0-33.0); MEAN CORPUSCULAR VOLUME 86.4 fl (80.0-96.0); PLATELET COUNT, AUTOMATED 344 10^3/uL (150-450); RED BLOOD COUNT 3.96 10^6/uL (4.00-5.40)
[2019-02-12 11:19] LABS: HEMOGLOBIN A1c 6.5 %
== END ==
LOC: SKLAB7 08:00
PROVIDERS: ATTEND Family Medicine
DX: Z79.01 Long term (current) use of anticoagulants (principal); E11.9 Type 2 diabetes mellitus without complications; Z79.899 Other long term (current) drug therapy

== ENCOUNTER → 2019-03-12 | Outpatient (REF) | payer MEDICAID, OTHER ==
[~2019-03-12] MED LIST changes: +ASPI-1 PO; -ASPI325T PO; +LATA0.0013; +LATA0.0013 OU; -LATA5OPD; -LATA5OPD OU
[2019-03-12 09:10] LABS: CALCIUM LEVEL 9.2 MG/DL (8.8-10.2); GLOMERULAR FILTRATION RATE 57.5 (>39); POTASSIUM SERUM 5.6 MEQ/L (3.5-5.1); THYROID STIMULATING HORMONE 2.73 uIU/ML (0.358-3.740)
== END ==
LOC: SKLAB7 07:00
PROVIDERS: ATTEND Family Medicine
DX: I10 Essential (primary) hypertension (principal); E03.9 Hypothyroidism, unspecified

== ENCOUNTER → 2019-04-09 | Outpatient (REF) | payer MEDICAID, OTHER ==
[2019-04-09 08:15] LABS: CALCIUM LEVEL 9.2 MG/DL (8.8-10.2); CREATININE FOR GFR 1.09 MG/DL (0.55-1.30); GLOMERULAR FILTRATION RATE 52.1 (>39); POTASSIUM SERUM 4.3 MEQ/L (3.5-5.1)
== END ==
LOC: SKLAB7 08:27
PROVIDERS: ATTEND Family Medicine
DX: E11.9 Type 2 diabetes mellitus without complications (principal)

== ENCOUNTER → 2019-06-25 | Outpatient (REF) | payer MEDICAID, OTHER ==
[~2019-06-25] MED LIST changes: +ASPI-524 PO; -ASPI1TAB20 PO
[2019-06-25 09:10] LABS: ALBUMIN 3.6 GM/DL (3.2-5.2); BILIRUBIN,TOTAL 0.6 MG/DL (0.2-1.0); CALCIUM LEVEL 9.2 MG/DL (8.8-10.2); CREATININE FOR GFR 1.04 MG/DL (0.55-1.30); POTASSIUM SERUM 4.4 MEQ/L (3.5-5.1)
== END ==
LOC: SKLAB7 07:00
PROVIDERS: ATTEND Family Medicine
DX: I10 Essential (primary) hypertension (principal)

== ENCOUNTER → 2019-08-13 | Outpatient (REF) | payer MEDICAID ==
[~2019-08-13] MED LIST changes: -ASPI-222 PO; -ASPI-524 PO; +ASPI-527 PO; +ASPI325T57 PO
[2019-08-13 09:57] LABS: HEMATOCRIT 35.1 % (36.0-47.0); HEMOGLOBIN 11.6 g/dl (12.0-15.5); MEAN CORPUSCULAR HEMOGLOBIN 28.3 pg (27.0-33.0); MEAN CORPUSCULAR VOLUME 85.6 fl (80.0-96.0); PLATELET COUNT, AUTOMATED 306 10^3/uL (150-450); WHITE BLOOD COUNT 7.4 10^3/uL (4.0-10.0)
[2019-08-13 15:02] LABS: HEMOGLOBIN A1c 7.8 %
== END ==
LOC: SKLAB7 07:00
PROVIDERS: ATTEND Family Medicine
DX: E11.9 Type 2 diabetes mellitus without complications (principal)

== ENCOUNTER → 2019-09-17 | Outpatient (REF) | payer MEDICAID ==
[2019-09-17 11:12] LABS: CALCIUM LEVEL 9.3 MG/DL (8.8-10.2); CREATININE FOR GFR 1.16 MG/DL (0.55-1.30); GLOMERULAR FILTRATION RATE 48.4 (>39); POTASSIUM SERUM 4.9 MEQ/L (3.5-5.1); THYROID STIMULATING HORMONE 2.38 uIU/ML (0.358-3.740)
== END ==
LOC: SKLAB7 11:46
PROVIDERS: ATTEND Family Medicine
DX: E03.9 Hypothyroidism, unspecified (principal); I10 Essential (primary) hypertension

== ENCOUNTER → 2019-11-12 | Outpatient (REF) | payer MEDICAID ==
[2019-11-12 09:06] LABS: HEMATOCRIT 40.2 % (36.0-47.0); HEMOGLOBIN 13.1 g/dl (12.0-15.5); MEAN CORPUSCULAR HEMOGLOBIN 28.9 pg (27.0-33.0); MEAN CORPUSCULAR HGB CONC 32.6 g/dl (32.0-36.5); MEAN CORPUSCULAR VOLUME 88.7 fl (80.0-96.0); PLATELET COUNT, AUTOMATED 280 10^3/uL (150-450); RED BLOOD COUNT 4.53 10^6/uL (4.00-5.40); WHITE BLOOD COUNT 9.2 10^3/uL (4.0-10.0)
== END ==
LOC: SKLAB7 07:00
PROVIDERS: ATTEND Family Medicine
DX: Z79.899 Other long term (current) drug therapy (principal)

== ENCOUNTER → 2019-11-20 | Outpatient (REF) | payer MEDICAID | LOC: SKLAB7 18:19 | PROVIDERS: ATTEND Family Medicine | DX: K92.1 Melena (principal) ==

== ENCOUNTER → 2019-11-20 | Outpatient (REF) | payer MEDICAID | LOC: SKLAB7 16:00 | PROVIDERS: ATTEND Family Medicine | DX: K92.1 Melena (principal) ==

== ENCOUNTER → 2019-12-10 | Outpatient (REF) | payer MEDICAID ==
[2019-12-10 09:25] LABS: ALBUMIN 3.9 GM/DL (3.2-5.2); BILIRUBIN,TOTAL 0.9 MG/DL (0.2-1.0); CREATININE FOR GFR 1.07 MG/DL (0.55-1.30); GLOMERULAR FILTRATION RATE 53.1 (>39); POTASSIUM SERUM 4.1 MEQ/L (3.5-5.1); TOTAL PROTEIN 7.9 GM/DL (6.4-8.2)
== END ==
LOC: SKLAB7 09:54
PROVIDERS: ATTEND Family Medicine
DX: I10 Essential (primary) hypertension (principal)

== ENCOUNTER → 2020-01-14 | Outpatient (REF) ==
[2020-01-14 08:50] LABS: HEMATOCRIT 37.3 % (36.0-47.0); HEMOGLOBIN 12.3 g/dl (12.0-15.5); PLATELET COUNT, AUTOMATED 276 10^3/uL (150-450); RED BLOOD COUNT 4.24 10^6/uL (4.00-5.40); WHITE BLOOD COUNT 6.8 10^3/uL (4.0-10.0)
[2020-01-14 09:31] LABS: CALCIUM LEVEL 8.9 MG/DL (8.8-10.2); GLOMERULAR FILTRATION RATE 57.4 (>39); POTASSIUM SERUM 4.7 MEQ/L (3.5-5.1)
== END ==
LOC: SKLAB7 07:00
PROVIDERS: ATTEND Family Medicine
DX: I10 Essential (primary) hypertension (principal); E11.9 Type 2 diabetes mellitus without complications

== ENCOUNTER → 2020-02-11 | Outpatient (REF) | payer MEDICAID ==
[2020-02-11 08:57] LABS: MEAN CORPUSCULAR HEMOGLOBIN 29.6 pg (27.0-33.0); MEAN CORPUSCULAR HGB CONC 33.3 g/dl (32.0-36.5); MEAN CORPUSCULAR VOLUME 88.9 fl (80.0-96.0); PLATELET COUNT, AUTOMATED 250 10^3/uL (150-450); RED BLOOD COUNT 4.05 10^6/uL (4.00-5.40); WHITE BLOOD COUNT 5.6 10^3/uL (4.0-10.0)
[2020-02-11 09:09] LABS: BLOOD UREA NITROGEN 16 MG/DL (7-18); CALCIUM LEVEL 8.9 MG/DL (8.8-10.2); CARBON DIOXIDE LEVEL 22 MEQ/L (21-32); CHLORIDE LEVEL 108 MEQ/L (98-107); CREATININE FOR GFR 0.87 MG/DL (0.55-1.30); GLOMERULAR FILTRATION RATE > 60.0 (>39); GLUCOSE, FASTING 116 MG/DL (70-100); POTASSIUM SERUM 4.4 MEQ/L (3.5-5.1); SODIUM LEVEL 138 MEQ/L (136-145)
[2020-02-11 09:54] LABS: HEMOGLOBIN A1c 8.2 %
== END ==
LOC: SKLAB7 13:36
PROVIDERS: ATTEND Family Medicine
DX: Z79.01 Long term (current) use of anticoagulants (principal); I10 Essential (primary) hypertension; E11.9 Type 2 diabetes mellitus without complications

== ENCOUNTER → 2020-03-10 | Outpatient (REF) ==
[2020-03-10 10:39] LABS: BLOOD UREA NITROGEN 16 MG/DL (7-18); CALCIUM LEVEL 9.3 MG/DL (8.8-10.2); CARBON DIOXIDE LEVEL 26 MEQ/L (21-32); CHLORIDE LEVEL 103 MEQ/L (98-107); CREATININE FOR GFR 0.91 MG/DL (0.55-1.30); GLOMERULAR FILTRATION RATE > 60.0 (>39); GLUCOSE, FASTING 137 MG/DL (70-100); POTASSIUM SERUM 4.5 MEQ/L (3.5-5.1); SODIUM LEVEL 134 MEQ/L (136-145)
== END ==
LOC: SKLAB7 07:00
PROVIDERS: ATTEND Family Medicine
DX: E03.9 Hypothyroidism, unspecified (principal); I10 Essential (primary) hypertension

== ENCOUNTER → 2020-04-07 | Outpatient (REF) | LOC: SKLAB7 08:52 | PROVIDERS: ATTEND Internal Medicine | DX: Z03.818 Encounter for observation for suspected exposure to other biological agents ruled out (principal) ==

== ENCOUNTER → 2020-05-05 | Outpatient (REF) ==
[2020-05-05 08:29] LABS: CREATININE FOR GFR 0.97 MG/DL (0.55-1.30)
[2020-05-05 08:30] LABS: CALCIUM LEVEL 9.1 MG/DL (8.8-10.2); GLOMERULAR FILTRATION RATE 59.4 (>39); POTASSIUM SERUM 4.7 MEQ/L (3.5-5.1)
== END ==
LOC: SKLAB7 07:11
PROVIDERS: ATTEND Family Medicine
DX: R60.9 Edema, unspecified (principal)

== ENCOUNTER → 2020-05-12 | Outpatient (REF) ==
[2020-05-12 09:50] LABS: HEMATOCRIT 37.1 % (36.0-47.0); HEMOGLOBIN 12.3 g/dl (12.0-15.5); MEAN CORPUSCULAR HEMOGLOBIN 29.7 pg (27.0-33.0); MEAN CORPUSCULAR HGB CONC 33.2 g/dl (32.0-36.5); MEAN CORPUSCULAR VOLUME 89.6 fl (80.0-96.0); PLATELET COUNT, AUTOMATED 287 10^3/uL (150-450); RED BLOOD COUNT 4.14 10^6/uL (4.00-5.40); WHITE BLOOD COUNT 8.1 10^3/uL (4.0-10.0)
== END ==
LOC: SKLAB7 07:00
PROVIDERS: ATTEND Family Medicine
DX: Z79.01 Long term (current) use of anticoagulants (principal)

== ENCOUNTER → 2020-07-25 | Outpatient (CLI) | payer MEDICAID ==
--- NOTE | 2020-08-23 09:35 | REP ---
UNILATERAL MAMMOGRAM OF THE RIGHT BREAST WITH 3D TOMOSYNTHESIS COMPARISON: 06/24/2017 and 01/13/2016 HISTORY: Malignant mastectomy left breast 2005 with chemotherapy and radiation therapy. No family history of breast cancer. FINDINGS: MLO, CC, and ML views of the right breast were performed with 3D tomosynthesis. There is mild scattered fibroglandular tissue with no evidence of mass or architectural distortion. Benign calcifications are present including some vascular calcifications. There are no other significant findings. IMPRESSION: BI-RADS category 1 negative mammogram right breast with no evidence of mass or clustered microcalcifications. Follow up mammogram recommended in one year. This mammogram was interpreted with the aid of an FDA approved computer aided detection system. The patient states she has not had a clinical breast exam in over one year. Send letter 1. BOB
== END ==
LOC: M WHC 15:46
PROVIDERS: ATTEND Nurse Practitioner Family
DX: Z12.31 Encounter for screening mammogram for malignant neoplasm of breast (principal); Z85.3 Personal history of malignant neoplasm of breast; Z90.12 Acquired absence of left breast and nipple; Z92.3 Personal history of irradiation; Z92.21 Personal history of antineoplastic chemotherapy

== ENCOUNTER → 2020-10-04 | Outpatient (REF) | payer OTHER, MEDICAID ==
[2020-10-04 13:29] LABS: BASO % 0.4 % (0.0-1.0); EOS # 0.4 10^3/uL (0.0-0.5); EOS % 3.9 % (0.0-3.0); HEMATOCRIT 39.8 % (36.0-47.0); HEMOGLOBIN 12.7 g/dl (12.0-15.5); LYMPH # 1.8 10^3/uL (1.5-5.0); LYMPH % 20.3 % (24.0-44.0); MEAN CORPUSCULAR HEMOGLOBIN 28.5 pg (27.0-33.0); MEAN CORPUSCULAR HGB CONC 31.9 g/dl (32.0-36.5); MEAN CORPUSCULAR VOLUME 89.4 fl (80.0-96.0); MONO # 0.8 10^3/uL (0.0-0.8); MONO % 8.6 % (0.0-5.0); NEUTROPHILS % 66.5 % (36.0-66.0); PLATELET COUNT, AUTOMATED 315 10^3/uL (150-450); RED BLOOD COUNT 4.45 10^6/uL (4.00-5.40); WHITE BLOOD COUNT 9.1 10^3/uL (4.0-10.0)
[2020-10-04 13:51] LABS: ALBUMIN 3.9 GM/DL (3.2-5.2); BILIRUBIN,TOTAL 1.3 MG/DL (0.2-1.0); CALCIUM LEVEL 9.6 MG/DL (8.8-10.2); CREATININE FOR GFR 1.02 MG/DL (0.55-1.30); GLOMERULAR FILTRATION RATE 55.9 (>39); TOTAL PROTEIN 7.6 GM/DL (6.4-8.2)
== END ==
LOC: M SFHCPLAZ 10:17
PROVIDERS: ATTEND Physician Assistant
DX: R19.7 Diarrhea, unspecified (principal); K92.1 Melena

== ENCOUNTER → 2020-12-12 | Outpatient (REF) | payer OTHER, MEDICAID ==
[~2020-12-12] MED LIST changes: +GABA-282 PO; -GABA-843 PO; +LABE100T4 PO; -LABE10TAB PO; +LISI10TA22; +LISI10TA22 PO; -LISI10TA4; -LISI10TA4 PO
[2020-12-12 13:15] LABS: ALBUMIN 3.7 GM/DL (3.2-5.2); BILIRUBIN,TOTAL 1.7 MG/DL (0.2-1.0); CALCIUM LEVEL 9.5 MG/DL (8.8-10.2); CHOLESTEROL RISK RATIO 3.403 (<5); CREATININE FOR GFR 0.96 MG/DL (0.55-1.30); FREE T4 1.54 NG/DL (0.76-1.46); POTASSIUM SERUM 4.2 MEQ/L (3.5-5.1); THYROID STIMULATING HORMONE 4.18 uIU/ML (0.358-3.740); TOTAL PROTEIN 7.4 GM/DL (6.4-8.2)
[2020-12-12 13:17] LABS: TOTAL 25(OH) VITAMIN D 15.5 NG/ML (30.0-100.0)
[2020-12-12 14:34] LABS: HEMOGLOBIN A1c 6.4 %
[2020-12-12 22:09] LABS: MAU/CREAT RATIO 161.7 MCG/MG (0.0-30.0)
== END ==
LOC: M PLALAB 09:14
PROVIDERS: ATTEND Nurse Practitioner Family
DX: I10 Essential (primary) hypertension (principal); E03.9 Hypothyroidism, unspecified; E11.29 Type 2 diabetes mellitus with other diabetic kidney complication; E78.2 Mixed hyperlipidemia; E55.9 Vitamin D deficiency, unspecified

== ENCOUNTER → 2021-03-09 | Outpatient (CLI) | payer OTHER, MEDICAID ==
[~2021-03-09] MED LIST changes: +ASPI-569 PO; -ASPI81TAEC PO
--- NOTE | 2021-03-09 11:35 | REPPI ---
INDICATION: R05 COUGH PRESENT FOR GREATER THAN 3 WEEKS COMPARISON: 05/16/2018 as well as other prior exams. TECHNIQUE: PA/Lateral FINDINGS: There is mild cardiomegaly. The pulmonary vasculature appears mildly prominent as do the interstitial markings, suggesting mild CHF and interstitial edema. Very small effusions are suspected in the posterior costophrenic sulci. There is calcification of the thoracic aorta. The mediastinal silhouette is unchanged. There are mild degenerative changes of the spine without compression deformity. There is calcification of the mitral annulus. IMPRESSION: Mild cardiomegaly. I suspect mild vascular congestion, CHF and interstitial edema, with tiny effusions. <Electronically signed by Rajendra Mclean > 03/09/21 [id number]
== END ==
LOC: M PLAIMG 11:02
PROVIDERS: ATTEND Physician Assistant
DX: R05 Cough (principal)

== ENCOUNTER 2021-03-14 23:43 | Inpatient (IN) | payer MEDICAID, OTHER ==
[~2021-03-14] VITALS: Ht 152.4 cm; Wt 62.3 kg
[2021-03-15] VITALS (9 sets, daily range): BP systolic 93–168; BP diastolic 57–82; O2SAT 95–97
[2021-03-15] MEDS: IPRATROPIUM 0.5MG/ALBUTEROL 2.5MG INH SOL UD 3ML (DUONEB) NEB PRN ×3 (00:06→00:31)
[2021-03-15 00:24] LABS: BASO # 0.1 10^3/uL (0.0-0.2); BASO % 0.6 % (0.0-1.0); EOS # 0.7 10^3/uL (0.0-0.5); EOS % 4.4 % (0.0-3.0); HEMATOCRIT 38.7 % (36.0-47.0); HEMOGLOBIN 11.6 g/dl (12.0-15.5); LYMPH % 39.3 % (24.0-44.0); MEAN CORPUSCULAR HEMOGLOBIN 24.8 pg (27.0-33.0); MEAN CORPUSCULAR VOLUME 82.9 fl (80.0-96.0); MONO # 1.1 10^3/uL (0.0-0.8); MONO % 7.1 % (2.0-8.0); NEUTROPHILS # 7.3 10^3/uL (1.5-8.5); NEUTROPHILS % 48.1 % (36.0-66.0); PLATELET COUNT, AUTOMATED 487 10^3/uL (150-450); RED BLOOD COUNT 4.67 10^6/uL (4.00-5.40)
[2021-03-15 00:25] LABS: WHITE BLOOD COUNT 15.2 10^3/uL (4.0-10.0)
[2021-03-15] MEDS ORDERED: PIPERACILLIN/TAZOBACTAM SOD 3.375 GM in D5W MINI-BAG PLUS 50 ML IV ONE (00:25)
[2021-03-15 00:47] LABS: ALBUMIN 3.5 GM/DL (3.2-5.2); ALT/SGPT 18 U/L (12-78); BILIRUBIN,DIRECT 0.2 MG/DL (0.0-0.2); BILIRUBIN,TOTAL 1.1 MG/DL (0.2-1.0); BLOOD UREA NITROGEN 13 MG/DL (7-18); CALCIUM LEVEL 9.3 MG/DL (8.8-10.2); CARBON DIOXIDE LEVEL 19 MEQ/L (21-32); CHLORIDE LEVEL 104 MEQ/L (98-107); CK-MB VALUE MASS 2.1 NG/ML (<3.6); CPK CREATINE PHOSPHOKINASE 66 U/L (26-192); CREATININE FOR GFR 1.16 MG/DL (0.55-1.30); GLOMERULAR FILTRATION RATE 48.2 (>39); GLUCOSE, FASTING 318 MG/DL (70-100); MB/CK RELATIVE INDEX 3.18 (< OR =4); NT-PRO BNP 2467 PG/ML (<450); POTASSIUM SERUM 3.3 MEQ/L (3.5-5.1); SODIUM LEVEL 139 MEQ/L (136-145); TOTAL PROTEIN 7.5 GM/DL (6.4-8.2); TROPONIN I < 0.02 NG/ML (< 0.10)
--- NOTE | 2021-03-15 00:59 | REPVR ---
PROCEDURE INFORMATION: Exam: XR Chest Exam date and time: 03/15/2021 12:10 AM Age: 75 years old Clinical indication: Cough and dyspnea TECHNIQUE: Imaging protocol: XR of the chest. Views: 1 view. COMPARISON: CR Ribs uni W-PA CHEST ONLY LEFT 08/05/2018 11:47 AM FINDINGS: Lungs: There are interstitial and alveolar opacities in both lungs, right greater than left. Pleural spaces: Unremarkable. No pleural effusion. No pneumothorax. Heart/Mediastinum: The cardiac silhouette is top normal in size. Vasculature: There are atherosclerotic calcifications of the aortic arch. Bones/joints: There are endplate spurs in the thoracic spine. IMPRESSION: Interstitial and alveolar opacities in both lungs, right greater than left. Differential diagnostic considerations include pneumonia and CHF. Electronically signed by: Liam Fuentes On 03/15/2021 00:59:11 AM
[2021-03-15] MEDS ORDERED: DEXTROSE 50% 50 ML SYRINGE IV PRN (03:10)
[2021-03-15] MEDS ORDERED: FUROSEMIDE 40 MG TAB PO ONE (03:10)
[2021-03-15] MEDS ORDERED: MAALOX 30 ML SUSP *UDC PO PRN (03:10)
[2021-03-15] MEDS ORDERED: GLUCOSE 4GM CHEW TABLET PO PRN (03:10)
[2021-03-15] MEDS ORDERED: MOM 30ML SUSPENSION UDC PO PRN (03:10)
[2021-03-15] MEDS ORDERED: GLUCAGON INJ 1MG VIAL SC PRN (03:10)
[2021-03-15] MEDS ORDERED: ACETAMINOPHEN TAB 650MG DOSE (2X325MG) PO PRN (03:10)
--- NOTE | 2021-03-15 03:29 | HPEPDOC ---
[facility] Medical History & Physical Date of Admission Mar 15, 2021 Date of Service: Mar 15, 2021 Other Provider Shahbaz STARR Attending Physician: EVIE THOMAS MD History and Physical TIME OF SERVICE: 330am CHIEF COMPLAINT: dyspnea HISTORY OF PRESENT ILLNESS: The history was obtained from the patients daughter the patient has dementia. This 75 yr old F was brought to the ER for evaluation of progressively worsening productive cough; last night it was so severe that s he couldnt catch her breath and the mucus had specs of blood so her daughter brought her to the ER for evaluation. The patient c/o WELCH and runny nose but no fever, chills, or leg swelling. Her Lasix was discontinued several months ago. She was started on Lasix and BIPAP for pulmonary edema along w abx for presumed PNA. REVIEW OF SYSTEMS: 12-point review of systems negative except as listed in HPI PAST MEDICAL/ SURGICAL HISTORY: Dementia L breast CA s/p mastectomy DLP IDDM HTN Hypothyroidism Diverticulosis Uterine CA Cervical CA Migraine WELCH Ischemic CVA DNR/DNI SOCIAL HISTORY: She a , Jehovas witness, originally from [facility], speaks Citizen [place], finished College, is retired, doesnt smoke and lives with her daughter FAMILY HISTORY: Liver CA, CVA ALLERGIES: Please see below. HOME MEDICATIONS: Please see below. PHYSICAL EXAMINATION: Vital Signs Date Time Temp Pulse Resp B/P (MAP) Pulse Ox O2 Delivery O2 Flow Rate FiO2 03/14/21 23:44 121 161/124 (136) 79 Room Air 03/14/21 23:52 34 03/15/21 00:34 93 03/15/21 02:23 97.9 GENERAL APPEARANCE: well nourished and developed/ NAD HEENT: EOMI / BIPAP mask in place CARDIOVASCULAR: tachycardic / NMRG LUNGS: not using accessory muscles / + crackles ABDOMEN: covex contour /soft / she doesnt grimace w palpation MUSCULOSKELETAL: HERNANDEZ x 4 INTEGUMENT: + melasama/ not flushed or diaphoretic NEUROLOGICAL: unable to assess bc of bipap mask PSYCHIATRIC: alert LABORATORY DATA: Immature Granulocyte % (Auto) 0.5, Neutrophils (%) (Auto) 48.1, Lymphocytes (%) (Auto) 39.3, Monocytes (%) (Auto) 7.1, Eosinophils (%) (Auto) 4.4H, Basophils (%) (Auto) 0.6, Neutrophils # (Auto) 7.3, Lymphocytes # (Auto) 6.0H, Monocytes # (Auto) 1.1H, Eosinophils # (Auto) 0.7H, Basophils # (Auto) 0.1, Nucleated Red B lood Cells % (auto) 0.0, Anion Gap 16, Glomerular Filtration Rate 48.2, Lactic Acid Level 10.3*H, Calcium Level 9.3, Total Bilirubin 1.1H, Direct Bilirubin 0.2, Aspartate Amino Transf (AST/SGOT) 17, Alanine Aminotransferase (ALT/SGPT) 18, Alkaline Phosphatase 91, Total Creatine Kinase 66, Creatine Kinase MB 2.1, Creatine Kinase MB Relative Index 3.18, Troponin I < 0.02, RX-Tbd-C-Type Natriuretic Peptide 2467H, Total Protein 7.5, Albumin 3.5, Albumin/Globulin Ratio 0.9L 03/15/21 00:18: POC pH (Misc Panel) 7.139*L, POC Base Excess (Misc Panel) -11.0L, POC Saturated Percent O2 (Misc) 84L, POC pO2 (Misc Panel) 64.0L, POC pCO2 (Misc Panel) 52.2H, POC HCO3 (Misc Panel) 17.7L, POC Total CO2 (Misc Panel) 19.0L 03/15/21 02:02: POC pH (Misc Panel) 7.284L, POC Base Excess (Misc Panel) -7.0L, POC Saturated Percent O2 (Misc) 97, POC pO2 (Misc Panel) 98.0, POC pCO2 (Misc Panel) 40.8, POC HCO3 (Misc Panel) 19.3L, POC Total CO2 (Misc Panel) 21.0L IMAGING: Chest xray IMPRESSION: Interstitial and alveolar opacities in both lungs, right greater than left. Differential diagnostic considerations include pneumonia and CHF. MICROBIOLOGY: COVID neg / respiratory panel pending ASSESSMENT: is a 75 yr old w a hx of dementia, multiple malignancies, NIDDM, HTN, CVA and hypothyroidism who is admitted for acute hypoxemic /hypercapneic respiratory failure 2/2 pulmonary edema. PLAN: 1 Acute BIPAP dependent / Hypoxemic /Hypercarbic Respiratory Failure 2/2 Pulmonary Edema Plan: BIPAP / f/u VBG 2 Pulmonary Edema Likely Flash pulmonary edema in the setting of accelerated HTN, her SBP in the 190s, or 2/2 undiagnosed CHF; her last Echo showed a normal EF. Despite SIRS I doubt she has bilateral PNA bc she had the dyspnea for 1 month there is no fever and she has a normal neutrophil #. Plan: Lasix / f/u Echo / hold off abx 3 Accelerated HTN - resolved Her BP likely been higher after her Lasix was dc Plan: telemetry / IV Lasix / trend troponins / c/w Metoprolol & Lisinopril 4 SIRS likely reactive Tachycardia, tachypnea and leucocytosis qSOFA score = 1 = not high risk Plan; f/u blood cx /will not order UA bc she doesnt have symptoms c/w UTI / will not order procalcitonin bc she has eosinophilic leukocytosis 5 Type B lactic acidosis 2/2 hypoxemia Plan: BIPAP / trend lactic acid 6 Hypokalemia Plan: replete K / f/u Mg 7 High anion gap metabolic acidosis with secondary metabolic acidosis and metabolic alkalosis High anion gap metabolic acidosis 2/2 lactic acidosis Not sure what the cause of the secondary metabolic acidosis Metabolic alkalosis is likely compensatory due to tachypnea /respiratory failure Plan: f/u serum osmol to calculate osmol gap prior to checking Etho, methanol and ethylene glycol 8 Uncontrolled DM She doesnt meet criteria to diagnose DKA Plan: diabetic diet / f/u accuchecks / / hypoglycemia protocol / sliding scale insulin / hold oral anti-glycemic / f/u A1C 9 Hypothyroidism Plan: levothyroxine 10 CVA Plan: apixaban ? / ASA 11 Dementia Plan: encourage family to stay at bedside during visiting hours DVT px n/a on DOAC Dispo: home after at least 2 midnights stay Late entry 711AM #Elevated trops likely 2/2 accelerated HTN and tachycardia (type 2 NSTEM) Plan: continue to trend / if up trending the day time team may consider d iscussing Cardi consult w the patients daughter Home Medications Scheduled Apixaban (Eliquis) 5 Mg Tab, 5 MG PO BID Aspirin (Aspirin EC) 81 Mg Tablet.dr, 81 MG PO DAILY Dorzolamide HCl (Dorzolamide HCl) 2% 10ML Drops, 1 DROP OD DAILY Ergocalciferol (Vitamin D2) (Vitamin D2) 50,000 Units Cap, 50,000 UNITS PO QWEEK SATURDAY @ 1200 Glipizide (Glipizide Xl) 2.5 Mg Tab, 2.5 MG PO DAILY Latanoprost (Xalatan) 0.005% 2.5ML Drops, 1 DROP OU QHS Levothyroxine Sodium (Unithroid) 75 Mcg Tab, 75 MCG PO DAILY Lisinopril (Lisinopril) 2.5 Mg Tablet, 2.5 MG PO DAILY Metformin HCl (Metformin HCl) 500 Mg Tab, 500 MG PO BID Metoprolol Succinate (Metoprolol Succinate) 25 Mg Tab, 25 MG PO QHS Scheduled PRN Acetaminophen (Acetaminophen ER) 650 Mg Tab, 650 MG PO Q8H PRN for PAIN Fluticasone Propionate (Flonase Allergy Relief) 9.9 Ml Barnett.susp, 2 SPRAYS NA DAILY PRN for NASAL CONGESTION Allergies Coded Allergies: atorvastatin (Verified Adverse Reaction, Intermediate, abnormal lft's, 03/15/21) simvastatin (Verified Adverse Reaction, Mild, DIARRHEA, 03/15/21) A-FIB/CHADSVASC A-FIB History Current/History of A-Fib/PAF?: No Current PO Anticoag Therapy: No EVIE THOMAS MD Mar 15, 2021 03:29
[2021-03-15 04:15] LABS: ACETONE/KETONE 1.59 MG/DL (<2.81)
[2021-03-15] MEDS ORDERED: XALA0.007 OU (04:44)
[2021-03-15] MEDS ORDERED: LISI2.5T8 PO (04:44)
[2021-03-15] MEDS ORDERED: DORZ2SOL4 OD (04:44)
[2021-03-15] MEDS ORDERED: VITA50005 PO (04:44)
[2021-03-15] MEDS ORDERED: FLON1SPR (04:44)
[2021-03-15] MEDS ORDERED: ASPI-161 PO (04:44)
[2021-03-15] MEDS: HumaLOG INSULIN (NovoLOG) PER UNIT SC SCH ×5 (05:20→21:03)
[2021-03-15 05:44] LABS: HEMOGLOBIN A1c 6.5 %
[2021-03-15 05:47] LABS: TROPONIN I 0.23 NG/ML (< 0.10)
[2021-03-15] MEDS: KCL 10MEQ/100ML SWI (KRUN) 10 MEQ in IV 1 EA IV SCH ×2 (06:01→07:22)
[2021-03-15] MEDS ORDERED: VANCOMYCIN HCL 1,000 MG, VIAL MATE ADAPTER 1 EACH in NS 250 ML IV SCH (06:25)
[2021-03-15] MEDS ORDERED: AZITHROMYCIN INJ 500 MG, VIAL MATE ADAPTER 1 EACH in NS 250 ML IV SCH (06:25)
[2021-03-15] MEDS ORDERED: cefTRIAXone SOD 1 GM in D5W MINI-BAG PLUS 50 ML IV SCH (06:25)
[2021-03-15] MEDS ORDERED: FLUTICASONE PROP 0.05% NASAL SPRAY 16 GM (FLONASE) PRN (07:15)
[2021-03-15] MEDS: LEVOTHYROXINE 75MCG TABLET (0.075MG) PO SCH (07:57)
--- NOTE | 2021-03-15 09:03 | REP ---
INDICATION: SOB COMPARISON: 03/14/2021 TECHNIQUE: Portable AP view of the chest FINDINGS: Diffuse bilateral airspace disease again noted but significantly improved as compared to prior examination. Mediastinum and cardiac silhouette are stable. No obvious effusion although small layering effusions cannot be excluded. Skeletal structures demonstrate stable osteopenia and degenerative changes. IMPRESSION: Diffuse bilateral airspace disease improved from prior examination. <Electronically signed by Armando Todd > 03/15/21 0886
[2021-03-15 09:38] LABS: INR 1.26; PROTHROMBIN TIME 16.1 SECONDS (12.5-14.3)
[2021-03-15 10:07] LABS: ABG BASE EXCESS -1.3 (-2.0-2.0); ABG HCO3 21.7 MEQ/L (22.0-26.0); ABG O2 SATURATION 99.5 % (95.0-99.0); ABG PARTIAL PRESSURE CO2 31.2 mmHg (35.0-45.0); ABG PARTIAL PRESSURE O2 168.6 mmHg (75.0-100.0); ABG STANDARD HCO3 23.4 MEQ/L (22.0-26.0); ABG TOTAL CO2 22.7 MEQ/L (23.0-31.0); ABG pH (ARTERIAL) 7.461 UNITS (7.350-7.450)
[2021-03-15 10:11] LABS: CK-MB VALUE MASS 6.6 NG/ML (<3.6); MB/CK RELATIVE INDEX 3.67 (< OR =4); TROPONIN I 0.34 NG/ML (< 0.10)
[2021-03-15] MEDS: APIXABAN 5 MG TAB (ELIQUIS) PO SCH ×2 (10:20→21:03)
[2021-03-15] MEDS: LISINOPRIL *2.5 MG* TAB PO SCH (10:20)
[2021-03-15] MEDS: ASPIRIN 81MG ENTERIC TABLET PO SCH (10:20)
[2021-03-15] MEDS: DORZOLAMIDE 2% OPHTH SOLN 10 ML BTL OD SCH (10:21)
[2021-03-15 10:50] LABS: VENOUS BASE EXCESS -1.1 (-2.0-2.0); VENOUS O2 SATURATION 99.6 % (60.0-80.0); VENOUS PARTIAL PRESSURE CO2 36.6 mmHg (38.0-50.0); VENOUS PARTIAL PRESSURE O2 179.9 mmHg (30.0-50.0); VENOUS PH 7.416 UNITS (7.330-7.430); VENOUS STANDARD HCO3 23.6 MEQ/L; VENOUS TOTAL CO2 24.1 MEQ/L (24.0-28.0)
[2021-03-15 10:52] LABS: BASO % 0.2 % (0.0-1.0); HEMATOCRIT 36.8 % (36.0-47.0); HEMOGLOBIN 11.5 g/dl (12.0-15.5); LYMPH # 0.9 10^3/uL (1.5-5.0); LYMPH % 5.4 % (24.0-44.0); MEAN CORPUSCULAR HGB CONC 31.3 g/dl (32.0-36.5); MONO # 0.9 10^3/uL (0.0-0.8); MONO % 5.4 % (2.0-8.0); NEUTROPHILS # 14.9 10^3/uL (1.5-8.5); NEUTROPHILS % 88.5 % (36.0-66.0); PLATELET COUNT, AUTOMATED 407 10^3/uL (150-450); WHITE BLOOD COUNT 16.8 10^3/uL (4.0-10.0)
[2021-03-15 11:22] LABS: CALCIUM LEVEL 8.5 MG/DL (8.8-10.2); CREATININE FOR GFR 1.09 MG/DL (0.55-1.30); GLOMERULAR FILTRATION RATE 51.8 (>39); POTASSIUM SERUM 4.9 MEQ/L (3.5-5.1); TROPONIN I 0.31 NG/ML (< 0.10)
[2021-03-15 11:47] LABS: CREATININE FOR GFR 1.18 MG/DL (0.55-1.30)
[2021-03-15 11:48] LABS: ALBUMIN 3.4 GM/DL (3.2-5.2); BILIRUBIN,TOTAL 1.7 MG/DL (0.2-1.0); CALCIUM LEVEL 8.6 MG/DL (8.8-10.2); GLOMERULAR FILTRATION RATE 47.3 (>39); POTASSIUM SERUM 3.8 MEQ/L (3.5-5.1); TOTAL PROTEIN 7.3 GM/DL (6.4-8.2)
[2021-03-15] MEDS ORDERED: FUROSEMIDE 40MG/4ML VIAL (J1940) IV ONE ×2 (12:15)
[2021-03-15 15:46] LABS: CK-MB VALUE MASS 5.2 NG/ML (<3.6); MB/CK RELATIVE INDEX 1.41 (< OR =4); TROPONIN I 0.45 NG/ML (< 0.10)
--- NOTE | 2021-03-15 17:25 | IPNPDOC ---
Text Note Date of Service The patient was seen on 03/15/21. NOTE Subjective: Seen and examined at bedside. As patient only speaks Hungarian and voice shaft mechanic was available on phone to convey. Patient reports having mild headache, denies any chest pain, abdominal pain, nausea, vomiting, diarrhea. She still reports having cough with reddish tinge sputum. Denies having any fever, chills, leg swelling. She was on BiPAP when I went and saw her, a repeat ABG showed that her PaO2 was 168 and her BiPAP was discontinued and her saturations were maintained at 92-96%. Objective: Physical exam: Gen. appearance: Patient has a history of dementia, she is not in acute distress. HEENT: patient is on BiPAP. Cardiac: Tachycardia heart rate of 100-110. Respiratory: Clear breath sounds in the upper lobes, mild crackles heard in bilateral lower lobes. Abdomen: Is soft, positive bowel sounds, no pain on palpation in all 4 quadrants. CERTIFIED LOW VISION THERAPIST: Patient was alert, no focal deficits. Labs: WBC 15.2, Hb 11.6, head CT 38.7, platelets [place] [address]. Repeat BMP was in 5000's Troponin were elevated since 4 AM and trending up up until 3 PM we will repeated and 4 hours as well.[And denies having any chest pain] Patient has an elevated lactate on admission 10.3 and gradually coming down. Imaging: Chest x-ray on 03/14/2021: Reported as: interstitial and alveolar opacities in bilateral lungs, right greater than left. Differential diagnosis consideration includes pneumonia and CHF. Chest x-ray on 03/15/2020: Reported as: Diffuse bilateral airspace Dodd is improved from prior examination. Assessment: 75-year-old female PMH of dementia, multiple malignancies, NIDDM, HTN, CVA and hypothyroidism who presented to the [facility] ED with acute hypoxia/hypercarbic respiratory failure secondary to pulmonary edema. On presentation she does have metabolic acidosis elevated lactic acidosis. Was given a dose of Zosyn.. Plan: Acute hypoxic / hypercarbic respiratory failure - likely multifactorial - s/p BIPAP 1) Pulmonary edema secondary to undiagnosed CHF exacerbation. - Patient last echo showed normal ejection fraction. - Given her clinical picture of crackles in bilateral runs Will get a repeat echo to see if she develops CHF. - Continue to diurese her gently and see how she does. - Likely patient's troponin and BNP were elevated due to demand ischemia. We will trended it. 2) Less likely Suspected Pneumonia: - Patient has a white count of 15.2, and her lactate is elevated. - s/p Zosyn. -Blood cultures were drawn and pending -Sputum Gram stain was done and is pending Type B lactic acidosis secondary to hypoxemia: - Her lactate is trending down. Troponin elevation - Denies any chest pain - EKG reviewed - Will trend troponin - c/w ASA 81 Hypoxic hypercarbic respiratory failure (See above) - Repeat ABG in the morning showed that patient is no more hypercarbic. And her BiPAP was D/c. Diabetes mellitus: - Hypoglycemic protocol. - On insulin sliding scale with before meals and daily at bedtime. - Consistent carbohydrate diet Hypertension: - Patient is getting metoprolol 25 mg daily. Hypothyroidism: - Continue levothyroxine. DVT prophylaxis: On Eliquis 5 mg by mouth twice a day Is positioned: Pending clinical improvement. VS,Fishbone, I+O VS, Fishbone, I+O Laboratory Tests 03/15/21 00:07 03/15/21 08:26 03/15/21 10:48 Vital Signs Date Time Temp Pulse Resp B/P (MAP) Pulse Ox O2 Delivery O2 Flow Rate FiO2 03/15/21 12:00 2.0 03/15/21 10:20 168/67 03/15/21 10:00 96 16 100 Nasal Cannula 03/15/21 08:00 98.5 55 I&O- Last 24 Hours up to 6 AM 03/15/21 06:00 Intake Total 100 ml Output Total 2000 ml Balance -1900 ml GME ATTESTATION GME ATTESTATION My faculty preceptor for this patient encounter was physically present during the encounter and was fully available. All aspects of the patient interview, examination, medical decision making process, and medical care plan development were reviewed and approved by the faculty preceptor. The faculty preceptor is aware and concurs with the plan as stated in the body of this note and will attest to such by his/her cosignature. ATTENDING NOTE I, Clare Cheema, have independently examined this patient and performed my own physical exam, as well as reviewed the documentation and edited where necessary. I have discussed in detail with the resident / student the findings and plan of treatment as documented by the resident / student and edited their note. I agree with their findings and treatment plan and have edited their documentation. I will continue to follow the patient during this hospital stay. Gauri Jordan MD Mar 15, 2021 17:24 CLARE CHEEMA MD Mar 15, 2021 18:14
--- NOTE | 2021-03-15 20:45 | ECGEPIP ---
[facility] Test Date: 2021-03-15 Pat Name: EBENEZER SANCHEZ Department: Room: [place] [address] Gender: Female Head Host/Hostess: JONATHAN : 1945 Requested By: LISSETH CHEEMA Order Number: [id number] Reading MD: Subha Harper Measurements Intervals [place] Rate: 97 P: 50 MO: 144 QRS: -38 QRSD: 138 T: 102 QT: 428 QTc: 543 Interpretive Statements SINUS RHYTHM LEFT BUNDLE BRANCH BLOCK SIMILAR TO 03/14/21 BUT FOR SLOWER HR Electronically Signed on 03-15-2021 20:45:16 EDT by Subha Harper
[2021-03-15] MEDS: LATANOPROST 0.005% OPHTH SOLN 2.5 ML OU SCH (21:03)
[2021-03-15] MEDS: METOPROLOL SUCC *XL* 25MG TAB (TopROL *XL*) PO SCH (21:05)
[2021-03-16] VITALS (13 sets, daily range): BP systolic 102–144; BP diastolic 52–68; O2SAT 93–98
[2021-03-16] MEDS: HumaLOG INSULIN (NovoLOG) PER UNIT SC SCH ×6 (00:45→20:11)
[2021-03-16] MEDS: LEVOTHYROXINE 75MCG TABLET (0.075MG) PO SCH (06:13)
[2021-03-16] MEDS ORDERED: FUROSEMIDE 40MG/4ML VIAL (J1940) IV SCH (09:00)
[2021-03-16 09:24] LABS: HEMATOCRIT 32.8 % (36.0-47.0); HEMOGLOBIN 10.4 g/dl (12.0-15.5); MEAN CORPUSCULAR HEMOGLOBIN 24.7 pg (27.0-33.0); MEAN CORPUSCULAR HGB CONC 31.7 g/dl (32.0-36.5); MEAN CORPUSCULAR VOLUME 77.9 fl (80.0-96.0); PLATELET COUNT, AUTOMATED 381 10^3/uL (150-450); RED BLOOD COUNT 4.21 10^6/uL (4.00-5.40); WHITE BLOOD COUNT 11.2 10^3/uL (4.0-10.0)
--- NOTE | 2021-03-16 09:44 | REP ---
INDICATION: fluid overload w/ crackles on auscultation COMPARISON: 03/15/2021 TECHNIQUE: Portable AP view of the chest FINDINGS: The mediastinum and cardiac silhouette are stable and within normal limits for portable technique. The lung mcmillan demonstrate increased markings which may reflect pulmonary vascular congestion/interstitial edema, but appear slightly improved as compared to prior examination. No consolidation or effusion. No pneumothorax. Skeletal structures intact. IMPRESSION: Cannot exclude mild pulmonary vascular congestion/interstitial edema. <Electronically signed by Armando Todd > 03/16/21 [id number]
[2021-03-16 10:03] LABS: CALCIUM LEVEL 8.7 MG/DL (8.8-10.2); CK-MB VALUE MASS 1.9 NG/ML (<3.6); CREATININE FOR GFR 1.1 MG/DL (0.55-1.30); GLOMERULAR FILTRATION RATE 51.3 (>39); MB/CK RELATIVE INDEX 0.33 (< OR =4); POTASSIUM SERUM 3.4 MEQ/L (3.5-5.1); TROPONIN I 0.23 NG/ML (< 0.10)
[2021-03-16] MEDS: DORZOLAMIDE 2% OPHTH SOLN 10 ML BTL OD SCH (10:09)
[2021-03-16] MEDS: LISINOPRIL *2.5 MG* TAB PO SCH (10:09)
[2021-03-16] MEDS: APIXABAN 5 MG TAB (ELIQUIS) PO SCH ×2 (10:09→20:12)
[2021-03-16] MEDS: ASPIRIN 81MG ENTERIC TABLET PO SCH (10:09)
[2021-03-16] MEDS ORDERED: POTASSIUM CHLORIDE 10 MEQ SR TABLET PO ONE (10:35)
--- NOTE | 2021-03-16 11:49 | IPNPDOC ---
Text Note Date of Service The patient was seen on 03/16/21. NOTE Subjective: Patient examined bedside with the help of an voice translator/interpreter. Patient reports having mild headache better than yesterday, still reports mild cough, denies having any chest pain, abdominal pain, nausea, vomiting, diarrhea. Denies having any fever or chills. She was on only nasal cannula 2 L overnight and was saturating at 93-96%. She reports to be feeling hungry will start her on consistent appetite given her diabetic history. Objective: Physical exam: Gen. appearance: The patient seems to be alert oriented 3[she does have a history of dementia], no acute distress. Cardiac: Regular rate and rhythm, S1 and S2 normal, no murmurs appreciated. Respiratory: Bilateral lower lung crackles appreciated, clear breath sounds in the upper lobes. Abdomen: Soft, no pain on palpation all 4 quadrants, positive bowel sounds appreciated. HOG OPERATOR: Patient is alert and oriented 3, no focal deficits. Extremities: does have 2+ pitting edema in her right leg mostly in the calf region and 1+ edema in the left leg in the calf region. Labs: WBC 11.2 came down from 16.8, Hemoglobin 10.4, hematocrit 32.8, platelet 381 Sodium 137, potassium 3.4 low replace with oral potassium, BUN 19, creatinine 1.10 Troponin 0.23 trending down, lactic acid is back to baseline. Imaging: Chest x-ray on 03/14/2021: Reported as: interstitial and alveolar opacities in bilateral lungs, right greater than left. Differential diagnosis consideration includes pneumonia and CHF. Chest x-ray on 03/15/2020: Reported as: Diffuse bilateral airspace Dodd is improved from prior examination. Chest X-rays done on 03/16/21: Reported as cannot exclude mild pulmonary vascular congestion/interstitial edema. Assessment: 75-year-old female PMH of dementia, multiple malignancies, NIDDM, HTN, CVA and hypothyroidism who presented to the [facility] ED with acute hypoxia/hypercarbic respiratory failure secondary to pulmonary edema. On presentation she does have metabolic acidosis elevated lactic acidosis. Was given a dose of Zosyn. Plan: Pulmonary edema secondary to undiagnosed CHF exacerbation: - Echo was ordered still pending. - Repeat chest x-ray showed mild pulmonary basilar congestion/interstitial edema. - We will continues to diurese her gently [Lasix 40 mg IV daily] - Patient's troponin and BNP are trending down the initial elevation was likely because of demand ischemia. - Patient has an improvement in white count and procalcitonin negative [unlikely pneumonia] - Blood cultures were negative in the preliminary reports. Hypokalemia: - Patient was given oral potassium. Type B lactic acidosis secondary to hypoxemia: -Lactate is back to normal Troponin elevation: - She denies having any chest pain, troponin is trending down, last troponin was 0.23 came down from 0.43. - Will continue aspirin 81 mg. Hypoxic hypercarbic respiratory failure (See above) -Resolved, patient BiPAP was discontinued yesterday and she was doing well on 2 L of nasal cannula overnight. Diabetes mellitus: - Hypoglycemic protocol. - On insulin sliding scale with before meals and daily at bedtime. - Consistent carbohydrate diet Hypertension: - Patient is getting metoprolol 25 mg daily. - Will continue lisinopril 2.5 mg by mouth daily Hypothyroidism: - Continue levothyroxine. DVT prophylaxis: On Eliquis 5 mg by mouth twice a day Disposition: Might be going home in a day or 2 VS,Fishbone, I+O VS, Fishbone, I+O Laboratory Tests 03/16/21 09:02 Vital Signs Date Time Temp Pulse Resp B/P (MAP) Pulse Ox O2 Delivery O2 Flow Rate FiO2 03/16/21 10:09 137/60 03/16/21 05:00 97 Nasal Cannula 2.0 03/16/21 04:00 97.6 86 20 03/15/21 08:00 55 I&O- Last 24 Hours up to 6 AM 03/16/21 06:00 Intake Total 510 ml Output Total 2125 ml Balance -1615 ml GME ATTESTATION GME ATTESTATION My faculty preceptor for this patient encounter was physically present during the encounter and was fully available. All aspects of the patient interview, examination, medical decision making process, and medical care plan development were reviewed and approved by the faculty preceptor. The faculty preceptor is aware and concurs with the plan as stated in the body of this note and will attest to such by his/her cosignature. ATTENDING NOTE I, Clare Cheema, have independently examined this patient and performed my own physical exam, as well as reviewed the documentation and edited where necessary. I have discussed in detail with the resident / student the findings and plan of treatment as documented by the resident / student and edited their note. I agree with their findings and treatment plan and have edited their documentation. I will continue to follow the patient during this hospital stay. Gauri Jordan MD Mar 16, 2021 11:49 CLARE CHEEMA MD Mar 16, 2021 13:05
--- NOTE | 2021-03-16 12:39 | ECGEPIP ---
[facility] - ED Test Date: 2021-03-14 Pat Name: EBENEZER SANCHEZ Department: Room: [place] [address] Gender: Female Building Official: sergei : 1945 Requested By: KELVIN Bernal Order Number: [id number] Reading MD: Gena Kelley Measurements Intervals [place] Rate: 117 P: TX: QRS: -41 QRSD: 146 T: 118 QT: 352 QTc: 491 Interpretive Statements sinus tachycardia Left axis deviation Left bundle branch block new 05/16/18, clinical correlation Electronically Signed on 03-16-2021 12:39:29 EDT by Gena Kelley
[2021-03-16] MEDS: METOPROLOL SUCC *XL* 25MG TAB (TopROL *XL*) PO SCH (20:13)
[2021-03-16] MEDS: LATANOPROST 0.005% OPHTH SOLN 2.5 ML OU SCH (20:13)
[2021-03-17] MEDS: LEVOTHYROXINE 75MCG TABLET (0.075MG) PO SCH (05:44)
[2021-03-17 06:00] VITALS: BP 146/98
[2021-03-17 07:39] LABS: BASO % 0.3 % (0.0-1.0); EOS # 0.5 10^3/uL (0.0-0.5); EOS % 4.4 % (0.0-3.0); HEMATOCRIT 34.2 % (36.0-47.0); HEMOGLOBIN 10.5 g/dl (12.0-15.5); LYMPH % 19.6 % (24.0-44.0); MEAN CORPUSCULAR HEMOGLOBIN 24.6 pg (27.0-33.0); MEAN CORPUSCULAR HGB CONC 30.7 g/dl (32.0-36.5); MEAN CORPUSCULAR VOLUME 80.1 fl (80.0-96.0); MONO # 0.8 10^3/uL (0.0-0.8); MONO % 7.4 % (2.0-8.0); NEUTROPHILS % 68.1 % (36.0-66.0); PLATELET COUNT, AUTOMATED 368 10^3/uL (150-450); RED BLOOD COUNT 4.27 10^6/uL (4.00-5.40); WHITE BLOOD COUNT 10.3 10^3/uL (4.0-10.0)
[2021-03-17 08:04] LABS: ALBUMIN 3.2 GM/DL (3.2-5.2); BILIRUBIN,TOTAL 1.8 MG/DL (0.2-1.0); CREATININE FOR GFR 1.1 MG/DL (0.55-1.30); GLOMERULAR FILTRATION RATE 51.3 (>39); MAGNESIUM LEVEL 2.1 MG/DL (1.8-2.4); POTASSIUM SERUM 4.3 MEQ/L (3.5-5.1); TOTAL PROTEIN 7.1 GM/DL (6.4-8.2)
[2021-03-17] MEDS: LISINOPRIL *2.5 MG* TAB PO SCH (09:14)
[2021-03-17] MEDS: ASPIRIN 81MG ENTERIC TABLET PO SCH (09:14)
[2021-03-17] MEDS: DORZOLAMIDE 2% OPHTH SOLN 10 ML BTL OD SCH (09:14)
[2021-03-17] MEDS: FUROSEMIDE 40 MG TAB PO SCH (09:14)
[2021-03-17] MEDS: APIXABAN 5 MG TAB (ELIQUIS) PO SCH ×2 (09:14→22:26)
[2021-03-17] MEDS: HumaLOG INSULIN (NovoLOG) PER UNIT SC SCH ×4 (09:16→22:25)
--- NOTE | 2021-03-17 09:18 | ECHO ---
DATE OF PROCEDURE: 03/16/2021 Age: 75 Gender: Female Height: 152 cm Weight: 62 kg REFERRING PHYSICIAN: Clare Sainz M.D. and Fara Askew MD INDICATION: Dyspnea. MEASUREMENTS: IVS 1.3 cm LV 3.6 cm LVPW 1.1 cm LA 3.1 cm Aorta 3.0 cm IVC 1.1 cm Mitral E wave velocity 113 cm/s Mitral A wave 149 cm/s E prime septal 5.6 cm/s E prime lateral 4.5 cm/s FINDINGS: This study is of rather limited technical quality with very difficult visualization. The patient is in sinus rhythm. Left ventricle has normal size. There is mild left ventricular hypertrophy and overall likely normal LV systolic function. Unfortunately due to limitation of the study, I cannot rule out subtle wall motion abnormalities, but overall EF is probably close to normal; I estimate EF around 50% to 55%. Right ventricle does not appear grossly enlarged. Both atria appear at least mildly enlarged. The aortic valve has three cusps and it is sclerotic, but mobility is preserved. There are very prominent degenerative abnormalities of the mitral valve with prominent thickening of the mitral leaflets and mitral annular calcifications. Mobility though is grossly preserved. Tricuspid and pulmonic valves appear normal. No pericardial effusion is noted. Inferior vena cava is of relatively small size and appropriately collapses with inspiration indicative of low or normal central venous pressure. Aortic root is normal. Aortic arch was poorly visualized. There is apparent atherosclerosis in the abdominal aorta. Doppler interrogation of the aortic valve reveals no significant stenosis and approximately izac-fw-dxytvetl aortic insufficiency with pressure half-time of AR jet 305 msec. There is mild mitral insufficiency and no significant mitral stenosis. There is mild tricuspid insufficiency. Calculated pulmonary artery pressure is in the low 30s corresponding to borderline pulmonary hypertension. Trace pulmonic insufficiency is also noted. Mitral inflow pattern and tissue Doppler imaging of the mitral annulus revealed grade 1 diastolic dysfunction. CONCLUSIONS: 1. Study is of limited technical quality, underlying sinus rhythm. 2. Normal LV size with mild LVH, low normal LV systolic function with estimated LVEF of 50% to 55%. Segmental wall motion abnormalities cannot be completely ruled out due to limited nature of images. Grade 1 diastolic dysfunction. 3. Prominent aortic sclerosis with no significant stenosis and psxh-df-rdcmxnct insufficiency. 4. Very prominent degenerative abnormalities of the mitral valve with no stenosis and mild insufficiency. 5. Normal or low central venous pressure and borderline pulmonary hypertension. MTDD
--- NOTE | 2021-03-17 13:45 | IPNPDOC ---
Text Note Date of Service The patient was seen on 03/17/21. NOTE Subjective: Patient seen and examined at bedside. Patient looks a lot better today, denies having any issues overnight, she was put on CPAP overnight and tolerated it well, yesterday patient told me that she has CPAP at home but rarely uses it. She denies having any symptoms like headache, cough, chest pain, abdominal pain, nausea, vomiting, diarrhea. No chills or fever, and I was examining, she was on 1 L of nasal cannula and was saturating at 90-93%. She was working with PT today and was able to take few steps but her saturations were dropping to upper 80s. Objective: Physical exam: Gen. examination: Patient is an alert oriented 3, no acute distress. Cardiac: Regular rate and rhythm, no murmur appreciated, normal S1 and S2. Respirations: Her lungs sounded a lot better today, mild crackles and left-sided lung base, clear breath sounds over rest of the lungs. Abdomen: Soft, positive bowel sounds, denies having any pain on palpation in all 4 quadrants. 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 Extremities: Patient's pitting edema has improved today. Labs: WBC 10.3, hemoglobin 10.5, hematocrit 34.2, platelet 368. BMP was normal. Imaging: Chest x-ray on 03/14/2021: Reported as: interstitial and alveolar opacities in bilateral lungs, right greater than left. Differential diagnosis consideration includes pneumonia and CHF. Chest x-ray on 03/15/2020: Reported as: Diffuse bilateral airspace Dodd is improved from prior examination. Chest X-rays done on 03/16/21: Reported as cannot exclude mild pulmonary vascular congestion/interstitial edema. Echocardiogram done on 03/15/2021: Reported as 1. Study is of limited technical quality, underlying sinus rhythm. 2. Normal LV size with mild LVH, low normal LV systolic function with estimated LVEF of 50% to 55%. Segmental wall motion abnormalities cannot be completely ruled out due to limited nature of images. Grade 1 diastolic dysfunction. 3. Prominent aortic sclerosis with no significant stenosis and diep-lk-smakcwfh insufficiency. 4. Very prominent degenerative abnormalities of the mitral valve with no stenosis and mild insufficiency. 5. Normal or low central venous pressure and borderline pulmonary hypertension. Assessment: 75-year-old female PMH of dementia, multiple malignancies, NIDDM, HTN, CVA and hypothyroidism who presented to the [facility] ED with acute hypoxia/hypercarbic respiratory failure secondary to pulmonary edema. On presentation she does have metabolic acidosis elevated lactic acidosis. Has received a dose of Zosyn initially. Plan: Pulmonary edema secondary to undiagnosed CHF exacerbation: -Echocardiogram is above. - We will continues to diurese her gently [Lasix 40 mg IV daily] -Her troponin have trended down - Patient has an improvement in white count and procalcitonin negative [unlikely pneumonia] - Blood cultures were negative in the preliminary reports. Type B lactic acidosis secondary to hypoxemia: -Lactate is back to normal Initial elevation Troponin: - Likely due to demand ischemia -Her troponin trended down - Will continue aspirin 81 mg. Hypoxic hypercarbic respiratory failure (See above) -Resolved, initially patient was put on BiPAP, her saturations were well maintained above 90 with nasal cannula on 2 to 1 L NATALI: -Patient reports she has a history of NATALI and was given CPAP but rarely uses it. - Will continue with table top CPAP while here - Patient has been advised to continue the use of CPAP as an outpatient Diabetes mellitus: - Hypoglycemic protocol. - On insulin sliding scale with before meals and daily at bedtime. - Consistent carbohydrate diet Hypertension: - Patient is getting metoprolol 25 mg daily. - Will continue lisinopril 2.5 mg by mouth daily Hypothyroidism: - Continue levothyroxine. DVT prophylaxis: On Eliquis 5 mg by mouth twice a day Disposition: - PT was working with her today; anticipate clearance tomorrow - Likely discharge tomorrow. VS,Fishbone, I+O VS, Fishbone, I+O Laboratory Tests 03/17/21 07:24 Vital Signs Date Time Temp Pulse Resp B/P (MAP) Pulse Ox O2 Delivery O2 Flow Rate FiO2 03/17/21 09:14 129/63 03/17/21 06:00 98.0 88 18 97 Nasal Cannula 1.0 03/15/21 08:00 55 I&O- Last 24 Hours up to 6 AM 03/17/21 06:00 Intake Total 1425 ml Output Total 1000 ml Balance 425 ml GME ATTESTATION GME ATTESTATION My faculty preceptor for this patient encounter was physically present during the encounter and was fully available. All aspects of the patient interview, examination, medical decision making process, and medical care plan development were reviewed and approved by the faculty preceptor. The faculty preceptor is aware and concurs with the plan as stated in the body of this note and will attest to such by his/her cosignature. ATTENDING NOTE I, Clare Cheema, have independently examined this patient and performed my own physical exam, as well as reviewed the documentation and edited where necessary. I have discussed in detail with the resident / student the findings and plan of treatment as documented by the resident / student and edited their note. I agree with their findings and treatment plan and have edited their documentation. I will continue to follow the patient during this hospital stay. Gauri Jordan MD Mar 17, 2021 13:45 CLARE CHEEMA MD Mar 17, 2021 17:39
[2021-03-17 14:00] VITALS: BP 128/61
[2021-03-17 22:00] VITALS: BP 129/60
[2021-03-17] MEDS: METOPROLOL SUCC *XL* 25MG TAB (TopROL *XL*) PO SCH (22:26)
[2021-03-17] MEDS: LATANOPROST 0.005% OPHTH SOLN 2.5 ML OU SCH (22:49)
[2021-03-18 02:25] LABS: APPEARANCE, URINE CLOUDY (CLEAR); BACTERIA, URINE AUTO 3+ (NEGATIVE); BILIRUBIN, URINE AUTO NEGATIVE (NEGATIVE); BLOOD, URINE BLOOD 3+ (NEGATIVE); COLOR, URINE YELLOW (YELLOW); GLUCOSE, URINE (UA) AUTO NEGATIVE (NEGATIVE); KETONE, URINE AUTO NEGATIVE (NEGATIVE); LEUKOCYTE ESTERASE, URINE AUTO 2+ (NEGATIVE); MUCUS, URINE SMALL (NEGATIVE); NITRITE, URINE AUTO NEGATIVE (NEGATIVE); PROTEIN, URINE AUTO 1+ mg/dL (NEGATIVE); RBC, URINE AUTO TNTC /HPF (0-3); SPECIFIC GRAVITY URINE AUTO 1.006 (1.002-1.035); SQUAMOUS EPITHELIAL CELL UR AU 2 /HPF (0-6); UROBILINOGEN, URINE AUTO 0.2 mg/dL (0.0-2.0); WBC, URINE AUTO 41 /HPF (0-3)
[2021-03-18 05:22] VITALS: O2SAT 93
[2021-03-18 06:00] VITALS: BP 124/74
[2021-03-18 06:17] LABS: BASO # 0.1 10^3/uL (0.0-0.2); BASO % 0.5 % (0.0-1.0); EOS # 0.6 10^3/uL (0.0-0.5); HEMATOCRIT 35.4 % (36.0-47.0); HEMOGLOBIN 10.9 g/dl (12.0-15.5); LYMPH # 2.8 10^3/uL (1.5-5.0); LYMPH % 28.5 % (24.0-44.0); MEAN CORPUSCULAR HEMOGLOBIN 24.5 pg (27.0-33.0); MEAN CORPUSCULAR HGB CONC 30.8 g/dl (32.0-36.5); MEAN CORPUSCULAR VOLUME 79.7 fl (80.0-96.0); MONO # 0.8 10^3/uL (0.0-0.8); MONO % 7.6 % (2.0-8.0); NEUTROPHILS # 5.7 10^3/uL (1.5-8.5); PLATELET COUNT, AUTOMATED 419 10^3/uL (150-450); RED BLOOD COUNT 4.44 10^6/uL (4.00-5.40); WHITE BLOOD COUNT 9.9 10^3/uL (4.0-10.0)
[2021-03-18] MEDS: LEVOTHYROXINE 75MCG TABLET (0.075MG) PO SCH (06:20)
[2021-03-18 06:40] LABS: CALCIUM LEVEL 8.9 MG/DL (8.8-10.2); CREATININE FOR GFR 1.08 MG/DL (0.55-1.30); GLOMERULAR FILTRATION RATE 52.4 (>39); MAGNESIUM LEVEL 2.2 MG/DL (1.8-2.4)
[2021-03-18] MEDS ORDERED: FURO40TA2 PO (08:50)
[2021-03-18 09:30] VITALS: BP 128/68
[2021-03-18] MEDS: HumaLOG INSULIN (NovoLOG) PER UNIT SC SCH ×2 (09:56→12:49)
[2021-03-18] MEDS: DORZOLAMIDE 2% OPHTH SOLN 10 ML BTL OD SCH (09:57)
[2021-03-18] MEDS: APIXABAN 5 MG TAB (ELIQUIS) PO SCH (10:15)
[2021-03-18] MEDS: FUROSEMIDE 40 MG TAB PO SCH (10:15)
[2021-03-18 10:16] VITALS: BP 128/68
[2021-03-18] MEDS: LISINOPRIL *2.5 MG* TAB PO SCH (10:16)
[2021-03-18] MEDS: ASPIRIN 81MG ENTERIC TABLET PO SCH (10:16)
[2021-03-18 14:00] VITALS: BP 117/47
--- NOTE | 2021-03-18 16:13 | DS.PDOC ---
Discharge Summary General Date of Admission Mar 15, 2021 at 03:08 Date of Discharge 03/18/2021 Attending Physician: CLARE SAINZ MD Discharge Summary PROCEDURES PERFORMED DURING STAY: [None]. ADMITTING DIAGNOSES: CHF exacerbation vs pulmonary edema Dementia L breast CA s/p mastectomy DLP IDDM HTN Hypothyroidism Diverticulosis Uterine CA Cervical CA Migraine WELCH Ischemic CVA DNR/DNI DISCHARGE DIAGNOSES: Dementia L breast CA s/p mastectomy DLP IDDM HTN Hypothyroidism Diverticulosis Uterine CA Cervical CA Migraine WELCH Ischemic CVA DNR/DNI COMPLICATIONS/CHIEF COMPLAINT: Acute Res Failure W/Hypoxia+Hypercapnia. HISTORY OF PRESENT ILLNESS: 75-year-old female PMH of dementia, multiple malignancies, NIDDM, HTN, CVA and hypothyroidism who presented to the [facility] ED with acute hypoxia/hypercarbic respiratory failure secondary to pulmonary edema. On presentation she does have metabolic acidosis elevated lactic acidosis. HOSPITAL COURSE: Patient was initially admitted to ICU as she was on BiPAP for hypercarbic respiratory failure. Later on the BiPAP was discontinued and she was having crackles in her lungs which gradually got decreased as she was given diuresis. The initial troponin and pro-BNP were elevated HR gradually came down as the diuresis was done. Patient was able to tolerate sleeping at night without any desaturations without any CPAP therapy. She was advised to follow-up with her primary care provider/travel registered nurse oncology for sleep study. She participated in PT / OT and her strength was improved and was decided to discharge as she was doing better. Patient did have a urinalysis done one day prior to the discharge as her urine was dark in color which showed blood in her urine. Will give a follow-up with urology for follow up. DISCHARGE MEDICATIONS: Please see below. ALLERGIES: Please see below. PHYSICAL EXAMINATION ON DISCHARGE: VITAL SIGNS: Please see below. Gen. examination: Patient is an alert oriented 3, no acute distress. Cardiac: Regular rate and rhythm, no murmur appreciated, normal S1 and S2. Respirations: Her lungs sounded a lot better today, mild crackles and left-sided lung base, clear breath sounds over rest of the lungs. Abdomen: Soft, positive bowel sounds, denies having any pain on palpation in all 4 quadrants. CASING MATERIAL WEIGHER: No focal deficits. Extremities: Patient's pitting edema has improved. LABORATORY DATA: Please see below. Imaging: Chest x-ray on 03/14/2021: Reported as: interstitial and alveolar opacities in bilateral lungs, right greater than left. Differential diagnosis consideration includes pneumonia and CHF. Chest x-ray on 03/15/2020: Reported as: Diffuse bilateral airspace Dodd is improved from prior examina tion. Chest X-rays done on 03/16/21: Reported as cannot exclude mild pulmonary vascular congestion/interstitial edema. Echocardiogram done on 03/15/2021: Reported as 1. Study is of limited technical quality, underlying sinus rhythm. 2. Normal LV size with mild LVH, low normal LV systolic function with estimated LVEF of 50% to 55%. Segmental wall motion abnormalities cannot be completely ruled out due to limited nature of images. Grade 1 diastolic dysfunction. 3. Prominent aortic sclerosis with no significant stenosis and jqig-iz-ojmzaoiy insufficiency. 4. Very prominent degenerative abnormalities of the mitral valve with no stenosis and mild insufficiency. 5. Normal or low central venous pressure and borderline pulmonary hypertension. PROGNOSIS: [Good] ACTIVITY: [As tolerated]. DIET: Consistent carbohydrate diet DISCHARGE PLAN: Home DISPOSITION: Home, Self-Care. DISCHARGE INSTRUCTIONS: 1. Please follow with PCP in one week 2. Please follow up with urology in 1-2 weeks [due to urine analysis showing blood and it] 3. Please follow with pulmonology as patient was suspected to have obstructive sleep apnea. 4. Please continue to take furosemide 40 mg orally daily. ITEMS TO FOLLOWUP ON ON OUTPATIENT: 1. Please follow with PCP in one week 2. Please follow up with urology in 1-2 weeks [due to urine analysis showing blood and it] 3. Please follow with pulmonology as patient was suspected to have obstructive sleep apnea. DISCHARGE CONDITION: [Stable]. TIME SPENT ON DISCHARGE: 30 minutes. Vital Signs/I&Os Vital Signs Date Time Temp Pulse Resp B/P (MAP) Pulse Ox O2 Delivery O2 Flow Rate FiO2 03/18/21 14:00 97.6 82 20 117/47 (70) 94 Room Air 03/17/21 14:00 1.0 03/15/21 08:00 55 I&O- Last 24 Hours up to 6 AM 03/18/21 06:00 Intake Total 1020 ml Output Total 955 ml Balance 65 ml Laboratory Data Labs 24H Laboratory Tests 2 03/17/21 16:32: Bedside Glucose (Misc Panel) 160H 03/17/21 19:20: Bedside Glucose (Misc Panel) 256H 03/18/21 02:02: Urine Color YELLOW, Urine Appearance CLOUDYH, Urine pH 5.0, Urine Specific [place] 1.006, Urine Protein 1+H, Urine Glucose (Auto)(UA) NEGATIVE, Urine Ketones (Auto) NEGATIVE, Urine Blood 3+H, Urine Nitrite NEGATIVE, Urine Bilirubin NEGATIVE, Urine Urobilinogen 0.2, Urine Leukocyte Esterase (Auto) 2+H, Urine WBC (Auto) 41H, Urine RBC (Auto) TNTCH, Urine Hyaline Casts (Auto) 16, Urine Bacteria (Auto) 3+H, Urine Squamous Epithelial Cells 2, Urine Mucus (Auto) SMALL, Urine Sperm (Auto) 03/18/21 05:31: Immature Granulocyte % (Auto) 0.4, Neutrophils (%) (Auto) 57.0, Lymphocytes (%) (Auto) 28.5, Monocytes (%) (Auto) 7.6, Eosinophils (%) (Auto) 6.0H, Basophils (%) (Auto) 0.5, Neutrophils # (Auto) 5.7, Lymphocytes # (Auto) 2.8, Monocytes # (Auto) 0.8, Eosinophils # (Auto) 0.6H, Basophils # (Auto) 0.1, Nucleated Red Blood Cells % (auto) 0.0, Anion Gap 8, Glomerular Filtration Rate 52.4, Calcium Level 8.9, Magnesium Level 2.2 03/18/21 11:44: Bedside Glucose (Misc Panel) 223H CBC/BMP Laboratory Tests 03/18/21 05:31 FSBS Laboratory Tests Test 03/17/21 16:32 03/17/21 19:20 03/18/21 11:44 Range/Units Bedside Glucose (Misc Panel) 160 256 223 83-110 MG/DL Microbiology Microbiology 03/15/21 Blood Culture - Preliminary, Resulted No Growth after 72 hours. All specime... 03/15/21 Respiratory Virus Panel (PCR) (VERO) - Final, Complete 03/15/21 Blood Culture - Preliminary, Resulted No Growth after 72 hours. All specime... Discharge Medications Scheduled Apixaban (Eliquis) 5 Mg Tab, 5 MG PO BID, (Reported) Aspirin (Aspirin EC) 81 Mg Tablet.dr, 81 MG PO DAILY, (Reported) Dorzolamide HCl (Dorzolamide HCl) 2% 10ML Drops, 1 DROP OD DAILY, (Reported) Ergocalciferol (Vitamin D2) (Vitamin D2) 50,000 Units Cap, 50,000 UNITS PO QWEEK, (Reported) SATURDAY @ 1200 Furosemide (Furosemide) 40 Mg Tablet, 40 MG PO DAILY Glipizide (Glipizide Xl) 2.5 Mg Tab, 2.5 MG PO DAILY, (Reported) Latanoprost (Xalatan) 0.005% 2.5ML Drops, 1 DROP OU QHS, (Reported) Levothyroxine Sodium (Unithroid) 75 Mcg Tab, 75 MCG PO DAILY, (Reported) Lisinopril (Lisinopril) 2.5 Mg Tablet, 2.5 MG PO DAILY, (Reported) Metformin HCl (Metformin HCl) 500 Mg Tab, 500 MG PO BID, (Reported) Metoprolol Succinate (Metoprolol Succinate) 25 Mg Tab, 25 MG PO QHS, (Reported) Scheduled PRN Acetaminophen (Acetaminophen ER) 650 Mg Tab, 650 MG PO Q8H PRN for PAIN, (Reported) Fluticasone Propionate (Flonase Allergy Relief) 9.9 Ml [place].susp, 2 SPRAYS NA DAILY PRN for NASAL CONGESTION, (Reported) Allergies Coded Allergies: atorvastatin (Verified Adverse Reaction, Intermediate, abnormal lft's, 03/15/21) simvastatin (Verified Adverse Reaction, Mild, DIARRHEA, 03/15/21) GME ATTESTATION GME ATTESTATION My faculty preceptor for this patient encounter was physically present during the encounter and was fully available. All aspects of the patient interview, examination, medical decision making process, and medical care plan development were reviewed and approved by the faculty preceptor. The faculty preceptor is aware and concurs with the plan as stated in the body of this note and will attest to such by his/her cosignature. ATTENDING NOTE I, Clare Sainz, have independently examined this patient and performed my own physical exam, as well as reviewed the documentation and edited where necessary. I have discussed in detail with the resident / student the findings and plan of treatment as documented by the resident / student and edited their note. I agree with their findings and treatment plan and have edited their documentation. I will continue to follow the patient during this hospital stay. Time spent on discharge 35 minutes Gauri Jordan MD Mar 18, 2021 16:13 CLARE SAINZ MD Mar 19, 2021 14:47
== END 2021-03-18 15:13 | disposition home or self-care (01) | DRG 194 ==
LOC: M ED 23:43 → M ED INP 03-15 03:08 → M ICU 03-15 05:01 → M MSPAV 03-16 23:12
PROVIDERS: ADMIT Internal Medicine; ATTEND Internal Medicine
DX: I11.0 Hypertensive heart disease with heart failure (principal); J96.01 Acute respiratory failure with hypoxia; J96.02 Acute respiratory failure with hypercapnia; E87.2 Acidosis; I50.33 Acute on chronic diastolic (congestive) heart failure; J81.1 Chronic pulmonary edema; E11.65 Type 2 diabetes mellitus with hyperglycemia; F03.90 Unspecified dementia, unspecified severity, without behavioral disturbance, psychotic disturbance, mood disturbance, and anxiety; Z79.01 Long term (current) use of anticoagulants; E87.6 Hypokalemia; G43.909 Migraine, unspecified, not intractable, without status migrainosus; E03.9 Hypothyroidism, unspecified; Z66 Do not resuscitate; Z86.73 Personal history of transient ischemic attack (TIA), and cerebral infarction without residual deficits; Z79.82 Long term (current) use of aspirin; Z79.84 Long term (current) use of oral hypoglycemic drugs; Z79.899 Other long term (current) drug therapy; Z88.8 Allergy status to other drugs, medicaments and biological substances; Z85.3 Personal history of malignant neoplasm of breast; Z90.12 Acquired absence of left breast and nipple; Z85.41 Personal history of malignant neoplasm of cervix uteri; Z20.822 Contact with and (suspected) exposure to COVID-19

== ENCOUNTER → 2021-03-24 | Outpatient (REF) | payer OTHER, MEDICAID ==
[~2021-03-24] MED LIST changes: +ASPI-161 PO; +DORZ2SOL4 OD; +FLON1SPR; +FURO40TA2 PO; +LISI2.5T8 PO; +VITA50005 PO; +XALA0.007 OU
[2021-03-24 12:39] LABS: BASO # 0.1 10^3/uL (0.0-0.2); BASO % 0.7 % (0.0-1.0); EOS # 0.5 10^3/uL (0.0-0.5); EOS % 4.7 % (0.0-3.0); HEMATOCRIT 36.7 % (36.0-47.0); HEMOGLOBIN 11.3 g/dl (12.0-15.5); LYMPH # 2.4 10^3/uL (1.5-5.0); LYMPH % 24.6 % (24.0-44.0); MEAN CORPUSCULAR HEMOGLOBIN 24.9 pg (27.0-33.0); MEAN CORPUSCULAR HGB CONC 30.8 g/dl (32.0-36.5); MEAN CORPUSCULAR VOLUME 80.8 fl (80.0-96.0); MONO # 0.7 10^3/uL (0.0-0.8); MONO % 7.1 % (2.0-8.0); NEUTROPHILS % 62.4 % (36.0-66.0); PLATELET COUNT, AUTOMATED 424 10^3/uL (150-450); RED BLOOD COUNT 4.54 10^6/uL (4.00-5.40); WHITE BLOOD COUNT 9.6 10^3/uL (4.0-10.0)
[2021-03-24 13:09] LABS: ALBUMIN 3.6 GM/DL (3.2-5.2); ALT/SGPT 31 U/L (12-78); BILIRUBIN,TOTAL 0.8 MG/DL (0.2-1.0); BLOOD UREA NITROGEN 20 MG/DL (7-18); CALCIUM LEVEL 9.1 MG/DL (8.8-10.2); CARBON DIOXIDE LEVEL 28 MEQ/L (21-32); CHLORIDE LEVEL 102 MEQ/L (98-107); CREATININE FOR GFR 1.21 MG/DL (0.55-1.30); GLOMERULAR FILTRATION RATE 45.9 (>39); GLUCOSE, FASTING 214 MG/DL (70-100); NT-PRO BNP 889 PG/ML (<450); POTASSIUM SERUM 4.8 MEQ/L (3.5-5.1); SODIUM LEVEL 138 MEQ/L (136-145); TOTAL PROTEIN 7.9 GM/DL (6.4-8.2); TROPONIN I < 0.02 NG/ML (< 0.10)
== END ==
LOC: M SFHCPLAZ 10:49
PROVIDERS: ATTEND Physician Assistant
DX: E11.29 Type 2 diabetes mellitus with other diabetic kidney complication (principal); I50.9 Heart failure, unspecified; I10 Essential (primary) hypertension

== ENCOUNTER → 2021-07-03 | Outpatient (CLI) | payer MEDICAID, OTHER ==
[~2021-07-03] MED LIST changes: +ERGO500029 PO; -KLOR10TA76 PO; +POTA-136 PO; -VITA50005 PO
[2021-07-03 11:28] LABS: ALBUMIN 3.8 GM/DL (3.2-5.2); BILIRUBIN,TOTAL 0.9 MG/DL (0.2-1.0); CALCIUM LEVEL 9.6 MG/DL (8.8-10.2); CREATININE FOR GFR 1.18 MG/DL (0.55-1.30); FREE T4 1.35 NG/DL (0.76-1.46); GLOMERULAR FILTRATION RATE 47.3 (>39); POTASSIUM SERUM 4.5 MEQ/L (3.5-5.1); THYROID STIMULATING HORMONE 6.02 uIU/ML (0.358-3.740); TOTAL 25(OH) VITAMIN D 18.1 NG/ML (30.0-100.0); TOTAL PROTEIN 7.7 GM/DL (6.4-8.2)
[2021-07-03 12:53] LABS: HEMOGLOBIN A1c 7.1 %
== END ==
LOC: M PLALAB 09:03
PROVIDERS: ATTEND Nurse Practitioner Family
DX: E55.9 Vitamin D deficiency, unspecified (principal); E03.9 Hypothyroidism, unspecified; E11.29 Type 2 diabetes mellitus with other diabetic kidney complication